=== PATIENT | male | born 1950 | race Caucasian/White ===

== ENCOUNTER 2023-01-04 08:43 | Inpatient (IN) | payer MEDICARE, OTHER ==
[~2023-01-04] VITALS: Ht 180.3 cm; Wt 122.0 kg
[2023-01-04] MEDS ORDERED: ACHD5005 PO (11:39)
[2023-01-04] MEDS ORDERED: CYCL10TA25 PO (11:39)
[2023-01-04] MEDS ORDERED: CARV6.252 PO (11:39)
[2023-01-04] MEDS ORDERED: NALO4SPR3 NS (11:39)
[2023-01-04] MEDS ORDERED: DIAZ2TAB2 PO (11:39)
[2023-01-04] MEDS ORDERED: FLEC50TA PO (11:39)
[2023-01-04] MEDS ORDERED: LISI1TAB48 PO (11:39)
[2023-01-04] MEDS ORDERED: ACET-2267 PO (11:39)
[2023-01-04] MEDS ORDERED: DOCU100C37 PO (11:39)
[2023-01-04] MEDS ORDERED: TMSL.4C PO (11:39)
[2023-01-04] MEDS ORDERED: Sodium Phosphate/Sodium Biphosphate ADULT enema PR PRN (12:45)
[2023-01-04] MEDS ORDERED: ONDANSETRON 4 MG ORAL DISSOLVE TABLET PO PRN (12:45)
[2023-01-04] MEDS ORDERED: diphenhydrAMINE 25 MG TABLET PO PRN (12:45)
[2023-01-04] MEDS ORDERED: DOCUSATE SODIUM 100 MG CAPSULE PO PRN (12:45)
[2023-01-04] MEDS ORDERED: ALPRAZolam 0.25 MG TABLET PO PRN (12:45)
[2023-01-04] MEDS ORDERED: LOPERAMIDE 2 MG CAPSULE PO PRN (12:45)
[2023-01-04] MEDS ORDERED: ACETAMINOPHEN 325 MG TABLET PO PRN (12:45)
[2023-01-04] MEDS ORDERED: guaiFENesin/CODEINE 10ML UDC PO PRN (12:45)
[2023-01-04] MEDS ORDERED: MELATONIN 3 MG TABLET PO PRN (12:45)
[2023-01-04] MEDS ORDERED: BISACODYL 10 MG SUPPOSITORY PR PRN (12:45)
[2023-01-04] MEDS ORDERED: CALCIUM CARBONATE 500 MG CHEW TABLET PO PRN (12:45)
[2023-01-04] MEDS ORDERED: LACTULOSE SYRUP 10GM/15ML 30ML UDC PO PRN (12:45)
--- NOTE | 2023-01-04 12:47 | PM&R Post Admission Assessment ---
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 He had post op urinary retention requiring in-dwelling catheter. He continues to have severe leg weakness from myelopathy. Home meds were restarted along with pain meds and patient will be monitored closely for any post op complications. Bowels have not moved since before surgery so regimen will be started. Past Qthxjrn-Tdlkpr-Mryuzv Hx Past Med/Social Hx: Reviewed Nursing Past Med/Soc Hx, Reviewed and Corrections made Patient Social History Marrital Status: Employed/Student: retired Alcohol Use: Denies Use Smoking Status: Former Smoker Past Medical History Respiratory: Sleep Apnea Currently Using CPAP: No Currently Using BIPAP: No Cardiac: Atrial Fibrillation, High Cholesterol, Hypertension Musculoskeletal: Arthritis, Chronic Back Pain PM&R Allergy/Meds/Data Review Allergies Coded Allergies: No Allergy Information Available (Unverified , 01/04/23) Home Medications Scheduled Carvedilol (Carvedilol), 6.25 MG PO BID WITH MEALS, (Reported) Docusate Sodium (Docusate Sodium), 100 MG PO BID, (Reported) Flecainide Acetate (Flecainide Acetate), 50 MG PO Q12H, (Reported) Lisinopril/Hydrochlorothiazide (Lisinopril-Hctz 20-25 mg Tab), 1 EACH PO HS, (Reported) Tamsulosin HCl (Flomax), 0.4 MG PO 1800 AFTER SUPPER, (Reported) Scheduled PRN Acetaminophen (Tylenol Extra Strength), 500 MG PO Q6H PRN for PAIN-MILD (1-4), (Reported) Cyclobenzaprine HCl (Cyclobenzaprine HCl), 10 MG PO Q8H PRN for MUSCLE SPASMS, (Reported) Diazepam (Diazepam), 2 MG PO Q8H PRN for MUSCLE SPASMS, (Reported) Hydrocodone/Acetaminophen (Hydrocodone-Acetamin 5-325 mg), 1 EA PO Q4H PRN for PAIN-MODERATE (5-7), (Reported) Naloxone HCl (Naloxone HCl), 1 SPRAY NS UD PRN for OPIOID OVERDOSE, (Reported) Current Medications Current Medications Reviewed Review of Systems Constitutional: see HPI, malaise, weakness EENTM: no symptoms reported Respiratory: no symptoms reported Cardiovascular: no symptoms reported Gastrointestinal: constipation Genitourinary: other (retention) Musculoskeletal: back pain, muscle pain, muscle stiffness, muscle cramps, muscle twitching, muscle weakness, neck pain Skin: no symptoms reported Psychiatric/Neurological: Depressed All Other Systems Reviewed Negative Unless Noted: Yes Physical Exam Physical Exam Vital Signs Capillary Refill : Height, Weight, BMI Height: '" Weight: lbs. oz. kg; BMI Method: General Appearance: No Apparent Distress, WD/WN, Chronically ill, Obese Eyes: Bilateral Eye Normal Inspection, Bilateral Eye PERRL HEENT: PERRL/EOMI, Normal ENT Inspection, Pharynx Normal Neck: Full Range of Motion, Normal Inspection, Non Tender, Supple, Carotid Bruit Respiratory: Chest Non Tender, Lungs Clear, Normal Breath Sounds, No Accessory Muscle Use, No Respiratory Distress Cardiovascular: Regular Rate, Rhythm, No Edema, No Gallop, No JVD, No Murmur, Normal Peripheral Pulses Gastrointestinal: Normal Bowel Sounds, No Organomegaly, No Pulsatile Mass, Non Tender, Soft Back: Normal Inspection, No CVA Tenderness, No Vertebral Tenderness Extremity: Normal Capillary Refill, Normal Inspection, Normal Range of Motion (except legs 2/5 strength), Non Tender, No Calf Tenderness, No Pedal Edema Neurologic/Psychiatric: Alert, Oriented x3, No Motor/Sensory Deficits, nurse practitioner physician assistant II- XII Norm as Tested, Abnormal Gait, Depressed Affect, Motor Weakness (legs 2/5) Skin: Normal Color, Warm/Dry Lymphatic: No Adenopathy PM&R Medical Assessment & Plan REHAB/MEDICAL ASSESSMENT AND PLAN: REHAB IMPAIRMENT GROUP: Other non-traumatic spinal cord dysfunction ETIOLOGIC DIAGNOSIS: Other spondylosis with myelopathy, cervical region The comorbidities that impact the patients function and/or functional outcome by: obesity, AF, HTN, urinary retention with la in place REHAB PLAN: The patient is being admitted to our comprehensive inpatient rehabilitation facility and can tolerate the intensity of service consisting of at least: 180 minutes of therapy a day, 5 out of 7 days a week Rehab treatment will consist of: PT OT will focus on regaining function with the use of AD in order to regain function of legs and work on DC la catheter while adding Flomax The patient/family has a good understanding of our discharge process and will benefit from an interdisciplinary inpatient rehabilitation program. The patient has potential to make improvement and is in need of at least two of the following multidisciplinary therapies including but not limited to physical, occupational, speech, and prosthetics and orthotics. Additionally the patient will need services from respiratory, nutritional services, wound care, psychology, etc. (Customize this to each patient). Given the patients complex condition and risk of further medical complications, rehabilitation services cannot be safely or effectively provided at a lower level of care such as a alf facility. BARRIERS TO DISCHARGE: Elevated BMI and loss of strength in legs ESTIMATED LOS: 14 days DISPOSITION: Home RELEVANT CHANGES SINCE PREADMISSION SCREENING: I have compared the patients medical and functional status at the time of the preadmission screening and there are: no changes PROGNOSIS: Good REHABILITATION GOALS: 1. PT OT will focus on regaining function with the use of AD in order to regain function of legs and work on DC la catheter while adding Flomax All the above goals were reviewed with the patient and he/she is in agreement. By signing this document, I acknowledge that I have personally performed a full physical examination on this patient within 24 hours of admission to this inpatient rehabilitation facility and have determined the patient to be able to tolerate the above course of treatment at an intensive level for a reasonable period of time. I will be completing a detailed individualized Plan of Care for this patient by day #4 of the patients stay based upon the Preadmission Screen, the Post-Admission Evaluation, and the therapy evaluations. Admission Dx/Comorbidities: (1) Cervical myelopathy ICD Codes: G95.9 - Disease of spinal cord, unspecified Assessment/Plan Assessment and Plan Assess & Plan/Chief Complaint Assessment: Cervical stenosis with post op myleopathy Urinary retention requiring in-dwelling catheter Post op constipation AF HTN HLP Plan: Pain control Monitor closely PT OT Catheter management Flomax RADHA SEVERINO DO Jan 04, 2023 12:47
[2023-01-04 13:30] VITALS: BP 137/75
--- NOTE | 2023-01-04 13:32 | Occupational Therapy Eval ---
OT Evaluation-General/PLF Medical Diagnosis Admission Date Jan 04, 2023 at 13:15 Medical Diagnosis: spondylosis with myelopathy; cervical region Onset Date: Jan 02, 2023 Therapy Diagnosis Therapy Diagnosis: decreased ADL status, weakness Referral Physician: Casa Referral Reason: Evaluation/Treatment Medical History Additional Medical History afib, L knee, lumbar laminectomy, R ZACHARY, R TKA, arhtritis, guillain barre, HLD, HTN, CINDY Current History 01/02/23 cervical discectomy fusion 1 level anterior, C7-T1 ACDF Social History Home: Single Level Current Living Status: Spouse Entry Into Home: Stairs With Railing (L side) Steps Into Home: 3 ADL-Prior Level of Function SCALE: Activities may be completed with or without assistive devices. 7-Kxhrbxapsk-izausdt completes the activity by him/herself with no assistance from a helper. 5-Set-up or Clean-up Assistance-helper sets up or cleans up; patient completes activity. [place] assists only prior to or following the activity. 4-Supervision or Touching Assistance-helper provides verbal cues and/or touching/steadying and/or contact guard assistance as patient completes activity. Assistance may be provided throughout the activity or intermittently. 3-Partial/Moderate Assistance-helper does LESS THAN HALF the effort. [place] lif ts, holds or supports trunk or limbs, but provides less than half the effort. 2-Substantial/Maximal Assistance-helper does MORE THAN HALF the effort. [place] lifts or holds trunk or limbs and provides more than half the effort. 4-Zzkurcpyr-fnzunw does ALL the effort. Patient does none of the effort to complete the activity. Or, the assistance of 2 or more helpers is required for the patient to complete the activity. If activity was not attempted, code reason: 7-Patient Refused. 9-Not Applicable-not attempted and the patient did not perform the activity before the current illness, exacerbation or injury. 10-Not Attempted due to Environmental Limitations-(lack of equipment, weather restraints, etc.). 88-Not Attempted due to Medical Conditions or Safety Concerns. ADL PLOF Comments Pt reports IND with ADLs and functional mobility at [facility], using cane PRN the last couple weeks due to RLE weakness/low back pain. He has a tub/shower combo, owns a tub transfer bench. Pt has a tall toilet. He has been sleeping in a recliner for the last 2 months due to back pain when flat, prior to that he was sleeping in a regular bed. 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 Mental Status/Objective Patient Orientation: Person, Place, Time, Situation Attachments: Pardo Catheter Current Glasses/Contacts: Yes Hearing Aids: Yes Dentures/Partials: No Hand Dominance: Right Upper Extremity ROM WFL, BUE shoulder flexion to approx 160 degrees Upper Extremity Coordination WFL Upper Extremity Sensation WFL per pt report. Occasional numbness based on position. Upper Extremity Strength grossly 4+/5 ADL-Treatment Eating (QC): 6 (IND per pt report) Oral Hygiene (QC): 4 Shower/Bathe Self (QC): 88 Upper Body Dressing (QC): 88 Lower Body Dressing (QC): 88 On/Off Footwear (QC): 1 Toileting Hygiene (QC): 88 Other Treatments Pt agreeable to OT evaluation. Pt provided information about PLOF and home set up and participated in UE screen. Pt educated on ARU expectations/process. Post tx, pt in bed, call light in reach and all needs met. Education OT Patient Education: Correct positioning, Energy conservation, Modified ADL techniques, Progress toward Goal/Update tx plan, Purpose of tx/functional activities, Rehab process Teaching Recipient: Patient Teaching Methods: Discussion Response to Teaching: Verbalize Understanding BIMS CAM BIMS Expression of Ideas and Wants: Without Difficulty Understanding Verbal Content: Understands Brief Interview/Mental Status: Yes IRF JAVI BIMS: IRF JAVI BIMS Response (Comments) Value Repitition of Three Words Three 3 Recalls Socks Yes, No Cue Required 2 Recalls Blue Yes, No Cue Required 2 Recalls Bed Yes, No Cue Required 2 Year Correct 3 Month Accurate Within 5 Days 2 Day Correct 1 Total 15 Patient Normally Able to Recal: Current Session, Location of own room, Staff Names and faces, That he/she in a steward health care system Should Staff Asses. Mental St.: No Memory/Recall Ability: Current Season, Location of Own Room, Staff Names and Faces, That He/She in [facility] Mental Status Change/Baseline: 0 Inattention: 0 Disorganized thinkin Altered level of consciousness: 0 OT Change Manager Goals Assisted Goals Time Frame: Jan 27, 2023 Eating (QC): 6 Oral Hygiene (QC): 6 Toileting Hygiene (QC): 4 Shower/Bathe Self (QC): 4 Upper Body Dressing (QC): 5 Lower Body Dressing (QC): 4 On/Off Footwear (QC): 5 Additional Goals: 1-Demonstrate ADL Tasks, 2-Verbalize Understanding, 3- ImproveStrength/Rahel 1=Demonstrate adherence to instructed precautions during ADL tasks. 2=Patient will verbalize/demonstrate understanding of assistive devices/modifications for ADL. 3=Patient will improve strength/tolerance for activity to enable patient to perform ADL's. OT Education/Plan Problem List/Assessment Assessment: Decreased Activ Tolerance, Decreased UE Strength, Impaired Funct B alance, Impaired I ADL's, Impaired Self-Care Skills Discharge Recommendations Plan/Recommendations: Continue POC Comment Recommendations to be determined based on pt's progress. Treatment Plan/Plan of Care Patient would benefit from OT for education, treatment and training to promote independence in ADL's, mobility, safety and/or upper extremity function for ADL's. Plan of Care: ADL Retraining, Functional Mobility, Group Exercise/Act as Ind, UE Funct Exercise/Act, UE Neuromus Re-Ed/Coord Treatment Duration: Jan 27, 2023 Frequency: At least 5 of 7 days/Wk (IRF) Estimated Hrs Per Day: 1.5 hours per day Agreement: Yes Rehab Potential: Fair Time Start Time: 13:20 Stop Time: 14:00 DATE: Jan 04, 2023 Total Time Billed (hr/min): 40 Billed Treatment Time 1, ANALIA PASTOR OT Jan 04, 2023 13:32
[2023-01-04] MEDS ORDERED: RX-CYCLOBENZAPRINE 10 MG (FLEXERIL) TAB PPK#3 PO PRN (14:00)
[2023-01-04] MEDS ORDERED: diazePAM 2 MG TABLET PO PRN (14:00)
[2023-01-04] MEDS ORDERED: ACETAMINOPHEN 500 MG TABLET PO PRN (14:00)
[2023-01-04] MEDS ORDERED: HYDROcodone/ACETAMINOPHEN 5 MG/325 MG TABLET PO PRN ×2 (14:00)
[2023-01-04] MEDS ORDERED: NON-FORMULARY MEDICATION 1 EA EA (Flecainide Acetate 50 MG) PO SCH (14:00)
[2023-01-04] MEDS ORDERED: CYCLOBENZAPRINE 10 MG TABLET PO PRN (14:15)
--- NOTE | 2023-01-04 16:26 | Physical Therapy Evaluation ---
PT Evaluation-General Medical Diagnosis Admission Date Jan 04, 2023 at 13:15 Medical Diagnosis: spondylosis with myelopathy; cervical region, s/p ACDF C7-T1 01/02/23 Onset Date: Jan 02, 2023 Therapy Diagnosis Therapy Diagnosis: severe mobility impairment, decreased endurance, poor balance Precautions Precautions/Isolations: Fall Prevention, Standard Precautions Weight Bear Status Right Lower Extremity: Right Full Weight Bearing Left Lower Extremity: Left Full Weight Bearing Referral Physician: Casa Reason for Referral: Evaluation/Treatment Medical History Pertinent Medical History: Atrial Fib, Arthritis Additional Medical History (R) anterior THR, (B) TKR's, lumbar laminectomy, remote hx Guillain [place], HLD, HTN, CINDY Social History Home: Single Level Current Living Status: Spouse Entry Into Home: Stairs With Railing (L side) PT Steps Into Home: 3 Prior Prior Level of Function SCALE: Activities may be completed with or without assistive devices. 4-Qerwymndyg-fxzpoto completes the activity by him/herself with no assistance from a helper. 5-Set-up or Clean-up Assistance-helper sets up or cleans up; patient completes activity. [place] assists only prior to or following the activity. 4-Supervision or Touching Assistance-helper provides verbal cues and/or touching/steadying and/or contact guard assistance as patient completes activity. Assistance may be provided throughout the activity or intermittently. 3-Partial/Moderate Assistance-helper does LESS THAN HALF the effort. [place] lifts, holds or supports trunk or limbs, but provides less than half the effort. 2-Substantial/Maximal Assistance-helper does MORE THAN HALF the effort. [place] lifts or holds trunk or limbs and provides more than half the effort. 6-Znvkmdinu-tvhqkz does ALL the effort. Patient does none of the effort to complete the activity. Or, the assistance of 2 or more helpers is required for the patient to complete the activity. If activity was not attempted, code reason: 7-Patient Refused. 9-Not Applicable-not attempted and the patient did not perform the activity before the current illness, exacerbation or injury. 10-Not Attempted due to Environmental Limitations-(lack of equipment, weather restraints, etc.). 88-Not Attempted due to Medical Conditions or Safety Concerns. Bed Mobility: 6 (Patient states he slept in a recliner) Transfers (B,C,W/C): 6 Gait: 6 (Patient states his max distance was ~ 100' due to back knees and back, then he would have to sit down.) Stairs: 6 (/c rails) Wheelchair Mobility: 9 Indoor Mobility (Ambulation): Independent Stairs: Independent Prior Device Use: None prior to 01/02 surgery. 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 States there is a FWW and wc available for his use. PT Evaluation-Current Subjective Patient states his butt hurts due to laying on it for so long (was transferred here by [facility] this afternoon). Pain Section J - Health Conditions 1. Rarely or not at all 2. Occasionally 3. Frequently 4. Almost constantly 8. Unable to answer Pain Effect on Sleep: 1 Pain Interference with Therapy: 2 Pain Interference w/Day-to-Day: 2 Pt/Family Goals Patient wishes to return to his home. Objective Patient Orientation: Person, Place, Situation Attachments: Pardo Catheter ROM/Strength ROM Upper Extremities deferred to OT ROM Lower Extremities Demonstrates full knee and ankle ROM actively. Demonstrates decreased hip flexion due to weakness, but large abdomen limits lift excursion in sitting. Strength Upper Extremities deferred to OT Strength Lower Extremities Sitting EOB (unsupported), MMT: Knee extension 5/5 (B). Knee flexion 5/5 (B). Ankle DF/PF 5/5 (B). Hip flexion 3-/5 (B), hip abd/add 4/5 (B) with MMT. Patient able to demonstrate normal motor control of LE's for MMT (B) - no involuntary movements noted with good control. Integumentary/Posture Integumentary Back was a deep red color when patient sat up to EOB with therapy staff. Nursing notified. Bladder Incontinence: Pardo Cath Sensory Hearing: Functional Hand Dominance: Right Sensation Lower Extremities Patient states that he had numbness, tingling and pins and needles at all aspects of his LE's and this is new since his 01/02 surgery. Testing for light touch: initially patient stated he could not feel any light touch. Performed Babinksi on (L) foot, and then patient was able to feel light touch at ALL aspects of LE's including re-testing of areas that he previously said were numb and did not have any sensation, 100% accuracy with laterality and location of light touch. Transfers Roll Left & Right (QC): 3 (Min (A) /c cues and bed rail use) Sit to Lying (QC): 1 (hard max (A) of 2 for supine>sit) Lying to Sitting/Side of Bed(Q: 1 (mod (A) of 2) Sit to Stand (QC): 1 (Unable to perform sit>stand with max (A) of 2 to walker, even with bed elevated, but performed 5 jerky partial sit>stands in attempt to stand. Had patient sit and utilized mechanical lift for patient and staff safety. ) Chair/Rjo-zu-Nzerx Xfer(QC): 1 (Attempted sliding board transfer with patient exhibiting jerky movements with feet (states he cannot control them). Transfer was not safe as patient kept scooting forward instead of along board. Transfer halted and had patient scoot back fully to bed. Sit>stand lift utilized - patient stated he could not control his feet when asked to place them on the platform of the stander, then later able to position (I).) Toilet Transfer (QC): 1 Car Transfer (QC): 88 Gait Does the Patient Walk?: Yes Mode of Locomotion: Both Anticipated Mode of Locomotion: Wheelchair Walk 10 feet (QC): 88 Walk 50 ft with 2 Turns(QC): 88 Walk 150 ft (QC): 9 (max distance prior to surgery was 100' due to knee and back pain) Walking 10ft/uneven surface-QC: 88 Wheelchair Training Does the Pt Use a Wheelchair?: Yes Distance: 170' Wheel 50 ft with 2 turns (QC): 4 (cues for UE use for propulsion/180 degree turns) Wheel 150 ft (QC): 4 (cues for UE use for propulsion/180 degree turns) Type of Wheelchair: Manual Stairs 1 Step (curb) (QC): 88 4 Steps (QC): 88 12 Steps (QC): 88 Balance Picking up an Object (QC): 88 Special Test Comments Sitting balance varied greatly from min-mod (A) when he first sat EOB to completely (I) during MMT of LE's and during sliding board transfer attempt. Was also (I) while placing sit>stand sling and after transferred back to bed. Patient unable to stand without mechanical lift. Assessment/Needs 72 year old male who underwent ACDF C7-T1 on 01/02. Has no UE deficits. Had good strength with MMT in (B) LE's. Inconsistent findings with LE sensation and motor coordination. 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 Current mobility limitations do not correlate with his recent medical diagnosis, his LE MMT, nor his PLOF. Rehab Potential: Fair Equipment Needs W/C /c cushion, ramp for home entry, mechanical lift at this time. Equipment needs TBD closer to discharge. PT Fish Cleaner Goals Fish Cleaner Goals PT Fish Cleaner Goals Time Frame: Jan 25, 2023 Roll Left to Right (QC): 6 (/c bed rail) Sit to Lying (QC): 3 (min (A) 1) Lying-Sitting on Side/Bed(QC): 3 (min (A) 1) Sit to Stand (QC): 3 (mod (A) of 1) Chair/Uwt-yh-Qsouj Xfer(QC): 3 (mod (A) of 1 /c sliding board or stand pivot) Toilet/Commode Transfer (QC): 3 (mod (A) of 1) Car Transfer (QC): 3 (Mod (A) ) Does the Patient Walk: No and Walking Goal IS indicated Walk 10 feet (QC): 1 ((A) of 2 /c FWW) Walk 10ft-Uneven Surface(QC): 1 ((A) of 2 /c FWW) Walk 50ft with 2 Turns (QC): 1 ((A) of 2 /c FWW) Walk 150 ft (QC): 9 (max distance prior to surgery was 100' due to (B) knee and back pain) Does the Pt use WC or Scooter?: Yes Wheel 50 feet with 2 turns (QC: 6 Type: Manual Wheel 150 feet: 6 1 Step (curb) (QC): 1 ((A) of 2 with rails or FWW) 4 Steps (QC): 88 12 Steps (QC): 88 Picking up an Object (QC): 3 (mod (A) with walker and billet inspector) Recommend ramp for home entry PT Plan Problem List Problem List: Activity Tolerance, Functional Strength, Safety, Balance, Gait, Transfer, Bed Mobility, Other (w/c propulsion) Treatment/Plan Treatment Plan: Continue Plan of Care Treatment Plan: Bed Mobility, Education, Functional Activity Rahel, Functional Strength, Gait, Safety, Therapeutic Exercise, Transfers Treatment Duration: Jan 25, 2023 Frequency: At least 5 of 7 days/Wk (IRF) Estimated Hrs Per Day: 1.5 hours per day Patient and/or Family Agrees t: Yes Discharge Recommendations Therapy Discharge Recommendati: 24 Hour Supervision (at this time), Bath Aide, Post Acute PT Discharge Status/Home Program TBD Target Placement TBD Time Time In: 1405 Time Out: 1510 DATE: Jan 04, 2023 Total Billed Treatment Time: 65 Total Billed Treatment [facility] 65 Mariella Ruelas PT Jan 04, 2023 16:26
[2023-01-04] MEDS ORDERED: FLECAINIDE 100 MG TABLET PO SCH ×2 (18:00→21:00)
[2023-01-04] MEDS: carvediloL 6.25 MG TABLET PO SCH (18:37)
[2023-01-04 20:12] VITALS: BP 132/61
[2023-01-04] MEDS ORDERED: NON-FORMULARY MEDICATION 1 EA EA (Lisinopril/Hydrochlorothiazide (Lisinopril-Hctz 20-25 mg PO SCH (21:00)
[2023-01-04] MEDS ORDERED: DOCUSATE SODIUM 100 MG CAPSULE PO SCH (21:00)
[2023-01-04] MEDS: SENNA W/DOCUSATE TABLET PO SCH (21:22)
[2023-01-04] MEDS: TAMSULOSIN 0.4 MG (FLOMAX) CAP PO SCH (21:22)
[2023-01-04] MEDS: DOCUSATE SODIUM 100 MG CAPSULE PO SCH (21:22)
[2023-01-05 05:58] LABS: BASOPHILS % (AUTO) 0 % (0-10); EOSINOPHILS # (AUTO) 0.1 10^3/uL (0.0-0.3); EOSINOPHILS % (AUTO) 0 % (0-10); HEMATOCRIT 38 % (40-54); HEMOGLOBIN 12.9 g/dL (13.3-17.7); LYMPHOCYTES % (AUTO) 36 % (12-44); MEAN CORPUSCULAR HEMOGLOBIN 33 pg (25-34); MEAN CORPUSCULAR HGB CONC 34 g/dL (32-36); MEAN CORPUSCULAR VOLUME 95 fL (80-99); MONOCYTES # (AUTO) 0.8 10^3/uL (0.0-1.0); MONOCYTES % (AUTO) 7 % (0-12); NEUTROPHILS # (AUTO) 6.2 10^3/uL (1.8-7.8); NEUTROPHILS % (AUTO) 56 % (42-75); PLATELET COUNT 283 10^3/uL (130-400); WHITE BLOOD COUNT 11.3 10^3/uL (4.3-11.0)
[2023-01-05 06:12] LABS: ALBUMIN 3.6 GM/DL (3.2-4.5); POTASSIUM 3.8 MMOL/L (3.6-5.0)
[2023-01-05 06:13] LABS: CALCIUM 8.7 MG/DL (8.5-10.1)
[2023-01-05 06:14] LABS: TOTAL PROTEIN 6.6 GM/DL (6.4-8.2)
[2023-01-05 06:16] LABS: BILIRUBIN,TOTAL 0.4 MG/DL (0.1-1.0)
[2023-01-05 06:18] LABS: CREATININE SERUM 0.84 MG/DL (0.60-1.30)
[2023-01-05 08:00] VITALS: BP 122/66
[2023-01-05] MEDS: TAMSULOSIN 0.4 MG (FLOMAX) CAP PO SCH ×2 (08:07→20:57)
[2023-01-05] MEDS: carvediloL 6.25 MG TABLET PO SCH ×2 (08:08→17:47)
[2023-01-05] MEDS: FLECAINIDE 100 MG TABLET PO SCH ×2 (08:08→17:51)
[2023-01-05] MEDS: DOCUSATE SODIUM 100 MG CAPSULE PO SCH ×2 (08:08→20:57)
[2023-01-05] MEDS: SENNA W/DOCUSATE TABLET PO SCH ×2 (08:08→20:57)
--- NOTE | 2023-01-05 08:45 | PM&R Progress Note ---
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 Labs reviewed Review of Systems General: Fatigue, Malaise Genitourinary: Retention Musculoskeletal: neck pain Objective Exam Vital Signs Vital Signs Date Time Temp Pulse Resp B/P (MAP) Pulse Ox O2 Delivery O2 Flow Rate FiO2 01/05/23 20:30 Room Air 01/05/23 20:19 36.4 68 18 115/57 (76) 94 Capillary Refill : General Appearance: No Apparent Distress, WD/WN, Chronically ill, Obese HEENT: PERRL/EOMI, Normal ENT Inspection, Pharynx Normal Neck: Full Range of Motion, Normal Inspection, Non Tender, Supple, Carotid Bruit Respiratory: Chest Non Tender, Lungs Clear, Normal Breath Sounds, No Accessory Muscle Use, No Respiratory Distress Cardiovascular: Regular Rate, Rhythm, No Edema, No Gallop, No JVD, No Murmur, Normal Peripheral Pulses Gastrointestinal: Normal Bowel Sounds, No Organomegaly, No Pulsatile Mass, Non Tender, Soft Back: Normal Inspection, No CVA Tenderness, No Vertebral Tenderness Extremity: Normal Capillary Refill, Normal Inspection, Normal Range of Motion, Non Tender, No Calf Tenderness, No Pedal Edema Neurologic/Psychiatric: Alert, Oriented x3, No Motor/Sensory Deficits, door 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 FIM Transfers Therapy Code Descriptions/Definitions Functional [place] Measure: 0=Not Assessed/NA 4=Minimal Assistance 1=Total Assistance 5=Supervision or Setup 2=Maximal Assistance 6=Modified [place] 3=Moderate Assistance 7=Complete IndependenceSCALE: Activities may be completed with or without assistive devices. 0-Lxiwmzgysq-mnzrsds completes the activity by him/herself with no assistance from a helper. 5-Set-up or Clean-up Assistance-helper sets up or cleans up; patient completes activity. [place] assists only prior to or following the activity. 4-Supervision or Touching Assistance-helper provides verbal cues and/or touching/steadying and/or contact guard assistance as patient completes activity. Assistance may be provided throughout the activity or intermittently. 3-Partial/Moderate Assistance-helper does LESS THAN HALF the effort. [place] lifts, holds or supports trunk or limbs, but provides less than half the effort. 2-Substantial/Maximal Assistance-helper does MORE THAN HALF the effort. [place] lifts or holds trunk or limbs and provides more than half the effort. 9-Rdztyrgwv-cnlddn does ALL the effort. Patient does none of the effort to complete the activity. Or, the assistance of 2 or more helpers is required for the patient to complete the activity. If activity was not attempted, code reason: 7-Patient Refused. 9-Not Applicable-not attempted and the patient did not perform the activity before the current illness, exacerbation or injury. 10-Not Attempted due to Environmental Limitations-(lack of equipment, weather restraints, etc.). 88-Not Attempted due to Medical Conditions or Safety Concerns. Roll Left to Right (QC): 3 (Min (A) /c cues and bed rail use) Sit to Lying (QC): 1 (hard max (A) of 2 for supine>sit) Sit to Stand (QC): 1 (Unable to perform sit>stand with max (A) of 2 to walker, even with bed elevated, but performed 5 jerky partial sit>stands in attempt to stand. Had patient sit and utilized mechanical lift for patient and staff safety. ) Chair/Kxk-ex-Ojwvq Xfer(QC): 1 (Attempted sliding board transfer with patient exhibiting jerky movements with feet (states he cannot control them). Transfer was not safe as patient kept scooting forward instead of along board. Transfer halted and had patient scoot back fully to bed. Sit>stand lift utilized - patient stated he could not control his feet when asked to place them on the platform of the stander, then later able to position (I).) Car Transfer (QC): 88 Gait Training Does the Patient Walk?: Yes Walk 10 feet (QC): 88 Walk 50 ft with 2 Turns(QC): 88 Walk 150 ft (QC): 9 (max distance prior to surgery was 100' due to knee and back pain) Walking 10ft/uneven surface-QC: 88 Wheelchair Training Does the Pt Use a Wheelchair?: Yes Distance: 170' Wheel 50 ft with 2 turns (QC): 4 (cues for UE use for propulsion/180 degree turns) Wheel 150 ft (QC): 4 (cues for UE use for propulsion/180 degree turns) Type of Wheelchair: Manual Stair Training 1 Step (curb) (QC): 88 4 Steps (QC): 88 12 Steps (QC): 88 Balance Picking up an Object (QC): 88 ADL-Treatment Eating (QC): 6 (IND per pt report) Oral Hygiene (QC): 4 Shower/Bathe Self (QC): 88 Upper Body Dressing (QC): 88 Lower Body Dressing (QC): 88 On/Off Footwear (QC): 1 Toileting Hygiene (QC): 88 Assessment/Plan Assessment and Plan Assess & Plan/Chief Complaint Assessment: Cervical stenosis with post op myleopathy Urinary retention requiring in-dwelling catheter Post op constipation AF HTN HLP Plan: Pain control Monitor closely PT OT Catheter management Flomax 01/05/2023: Continue Pardo catheter Supportive care (1) Cervical myelopathy RADHA SEVERINO DO Jan 05, 2023 08:45
--- NOTE | 2023-01-05 10:56 | Occupational Ther Daily Note ---
OT Current Status-Daily Note Subjective Pt. alert sitting in w/c with and daughter present in room. No c/o pain. Pt. agreed to therapy. Mental Status/Objective Patient Orientation: Person, Place, Time, Situation Attachments: Pardo Catheter ADL-Treatment Therapy Code Descriptions/Definitions Functional Telephone Measure: 0=Not Assessed/NA 4=Minimal Assistance 1=Total Assistance 5=Supervision or Setup 2=Maximal Assistance 6=Modified Telephone 3=Moderate Assistance 7=Complete IndependenceSCALE: Activities may be completed with or without assistive devices. 1-Ojeglwtkex-fypyjpq completes the activity by him/herself with no assistance from a helper. 5-Set-up or Clean-up Assistance-helper sets up or cleans up; patient completes activity. [place] assists only prior to or following the activity. 4-Supervision or Touching Assistance-helper provides verbal cues and/or touching/steadying and/or contact guard assistance as patient completes activity. Assistance may be provided throughout the activity or intermittently. 3-Partial/Moderate Assistance-helper does LESS THAN HALF the effort. [place] lifts, holds or supports trunk or limbs, but provides less than half the effort. 2-Substantial/Maximal Assistance-helper does MORE THAN HALF the effort. [place] lifts or holds trunk or limbs and provides more than half the effort. 0-Gfkvmrvhe-mvwrwc does ALL the effort. Patient does none of the effort to complete the activity. Or, the assistance of 2 or more helpers is required for the patient to complete the activity. If activity was not attempted, code reason: 7-Patient Refused. 9-Not Applicable-not attempted and the patient did not perform the activity before the current illness, exacerbation or injury. 10-Not Attempted due to Environmental Limitations-(lack of equipment, weather restraints, etc.). 88-Not Attempted due to Medical Conditions or Safety Concerns. Oral Hygiene (QC): 6 (Pt. completes grooming/oral hygiene while sitting at sink. ) Shower/Bathe Self (QC): 1 (2 person assistance would be required) Lower Body Dressing (QC): 1 (2 person assistance would be required) On/Off Footwear: 2 Toileting Hygiene (QC): 1 (Per RN, 2 person required) Toilet Transfer (QC): 1 (Per RN, 2 person required) Other Treatment Pt seated in w/c upon OT arrival. Pt propelled w/c into bathroom, completed grooming tasks at sink independently. OT/PT cotreat due to skill of 2 clinicians required which a cardiovascular technician could not perform in order to coordinate UE/LEs, decrease fall risk, and due to pt's limitations in mobility/transfers and safety. OT focused on UE placement, cues for sequencing and safety, PT focused on LE placement, gross overall movement, transfers/mobility. Pt propelled w/c to therapy gym, SBA with BUEs only. Sit to fashion styling intern // bars, mod A x2, VCS for UE placement. Pt able to fashion styling intern // bars x2, 4.5 mins & 4 mins, min A standing balance. During stands, pt had spontaneous knee buckling but able to self correct each time. Pt performed weight shifting L/R, and performed cervical ROM, looking L/R, and up/down. Pt performed SB transfer from w/c to edge of mat, mod A x2 with SB transfer and max VCS. Pt completed dynamic sitting tasks, reaching for cones crossing midline, and resistive core exercises with heavy resistance band (chest press, rows, crunches, and leaning back), no LOB noted with exercises. Pt performed SB transfer back to w/c, propelled w/c back to his room,SBA using BUE/LEs. Pt completed w/c push ups. Sit to stand lift utilized to transfer from w/c to recliner. Post tx, pt in recliner, call light in reach and all needs met. Education OT Patient Education: Correct positioning, Energy conservation, Exercise program, Modified ADL techniques, Progress toward Goal/Update tx plan, Purpose of tx/functional activities, Rehab process, Safety issues, Transfer techniques, W/C management Teaching Recipient: Patient Teaching Methods: Discussion Response to Teaching: Verbalize Understanding, Reinforcement Needed OT Hospice Care Consultant Goals [facility] Goals Time Frame: Jan 27, 2023 Acute change in mental status: 0 Inattention: 0 Disorganized thinkin Altered level of consciousness: 0 Eating (QC): 6 Oral Hygiene (QC): 6 Toileting Hygiene (QC): 4 Shower/Bathe Self (QC): 4 Upper Body Dressing (QC): 5 Lower Body Dressing (QC): 4 On/Off Footwear (QC): 5 Additional Goals: 1-Demonstrate ADL Tasks, 2-Verbalize Understanding, 3- ImproveStrength/Rahel 1=Demonstrate adherence to instructed precautions during ADL tasks. 2=Patient will verbalize/demonstrate understanding of assistive devices/modifications for ADL. 3=Patient will improve strength/tolerance for activity to enable patient to perform ADL's. OT Education/Plan Problem List/Assessment Assessment: Decreased Activ Tolerance, Decreased Safety Aware, Decreased UE Strength, Dependent Transfers, Impaired Funct Balance, Impaired I ADL's, Impaired Self-Care Skills Discharge Recommendations Plan/Recommendations: Continue POC Treatment Plan/Plan of Care Patient would benefit from OT for education, treatment and training to promote independence in ADL's, mobility, safety and/or upper extremity function for ADL's. Plan of Care: ADL Retraining, Functional Mobility, Group Exercise/Act as Ind, UE Funct Exercise/Act, UE Neuromus Re-Ed/Coord Treatment Duration: Jan 27, 2023 Frequency: At least 5 of 7 days/Wk (IRF) Estimated Hrs Per Day: 1.5 hours per day Agreement: Yes Rehab Potential: Fair Time Start Time: 09:30 Stop Time: 10:45 DATE: Jan 05, 2023 Total Time Billed (hr/min): 75 Billed Treatment Time 5524-5788 OT tx, 1112-3681 cotreat 1, ADL (15'), FA 2 (30'), EX 2 (30') ANALIA SOSA OT Jan 05, 2023 10:55
--- NOTE | 2023-01-05 13:01 | Physical Therapy Daily Note ---
PT Daily Note-Current Subjective No new c/o Pain Section J - Health Conditions 1. Rarely or not at all 2. Occasionally 3. Frequently 4. Almost constantly 8. Unable to answer Pain Effect on Sleep: 1 Pain Interference with Therapy: 1 Pain Interference w/Day-to-Day: 1 Appearance Sitting up in w/c this a.m. Transfers SCALE: Activities may be completed with or without assistive devices. 4-Temtnvxfzz-ubcwcqw completes the activity by him/herself with no assistance from a helper. 5-Set-up or Clean-up Assistance-helper sets up or cleans up; patient completes activity. [place] assists only prior to or following the activity. 4-Supervision or Touching Assistance-helper provides verbal cues and/or touching/steadying and/or contact guard assistance as patient completes activity. Assistance may be provided throughout the activity or intermittently. 3-Partial/Moderate Assistance-helper does LESS THAN HALF the effort. [place] lifts, holds or supports trunk or limbs, but provides less than half the effort. 2-Substantial/Maximal Assistance-helper does MORE THAN HALF the effort. [place] lifts or holds trunk or limbs and provides more than half the effort. 1-Njixauoia-tntvah does ALL the effort. Patient does none of the effort to complete the activity. Or, the assistance of 2 or more helpers is required for the patient to complete the activity. If activity was not attempted, code reason: 7-Patient Refused. 9-Not Applicable-not attempted and the patient did not perform the activity before the current illness, exacerbation or injury. 10-Not Attempted due to Environmental Limitations-(lack of equipment, weather restraints, etc.). 88-Not Attempted due to Medical Conditions or Safety Concerns. Sit to Stand (QC): 1 (mod (A) of 2 to hardboard coating machine operator // bars, but able to maintain standing min (A) of 1 x 4.5 minutes, seated rest break, and another 4 minutes. (R)/(L) weight shifting activity and gaze (L)/(R) and up/down while standing. Some self-corrected spontaneous knee-buckling episodes. ) Chair/Mse-ou-Jnngg Xfer(QC): 1 (sliding board transfer w/c >mat mod (A) of 2 /c max cues for w/c setup and board placement. Required that feet be blocked during transfer to prevent slippage.) Weight Bearing Right Lower Extremity: Right Full Weight Bearing Left Lower Extremity: Left Full Weight Bearing Wheelchair Training Wheel 50 ft with 2 turns (QC): 4 (propelled own w/c room to gym SBA /c (B) UE's only (held legs up from entire trip). On return trip had patient plant heels on the floor and bend knees to assist with UE's propulsion and exercise hamstrings - SBA gym>room.) Neuromuscular Seated balance reach and place cones at various heights in sitting without need of external support x 10 x 2. Blue t-band chest press x 10 without balance issue in sitting. Blue t-band lumbar extension x 10 and able to recover to upright sitting without supp ort/(A). Blue t-band crunches (elbows to knees) x 10 /s (A). PT Medical Sales Goals Medical Sales Goals PT [facility] Goals Time Frame: Jan 25, 2023 Roll Left & Right (QC): 6 (/c bed rail) Sit to Lying (QC): 3 (min (A) 1) Lying-Sitting on Side/Bed(QC): 3 (min (A) 1) Sit to Stand (QC): 3 (mod (A) of 1) Chair/Nrr-dn-Qqsuv Xfer(QC): 3 (mod (A) of 1 /c sliding board or stand pivot) Toilet Transfer (QC): 3 (mod (A) of 1) Car Transfer (QC): 3 (Mod (A) ) Does the Patient Walk: No and Walking Goal IS indicated Walk 10 feet (QC): 1 ((A) of 2 /c FWW) Walk 50ft with 2 Turns (QC): 1 ((A) of 2 /c FWW) Walk 150 ft (QC): 9 (max distance prior to surgery was 100' due to (B) knee and back pain) Walking 10ft on Uneven Surface: 1 ((A) of 2 /c FWW) 1 Step (curb) (QC): 1 ((A) of 2 with rails or FWW) 4 Steps (QC): 88 12 Steps (QC): 88 Picking up an Object (QC): 3 (mod (A) with walker and silver plater) Does the Pt use WC or Scooter?: Yes Wheel 50 feet with 2 turns (QC: 6 Type: Manual Wheel 150 feet: 6 PT Plan Treatment/Plan Treatment Plan: Continue Plan of Care Treatment Plan: Bed Mobility, Education, Functional Activity Rahel, Functional Strength, Gait, Safety, Therapeutic Exercise, Transfers Treatment Duration: Jan 25, 2023 Frequency: At least 5 of 7 days/Wk (IRF) Estimated Hrs Per Day: 1.5 hours per day Patient and/or Family Agrees t: Yes Time Time In: 945 Time Out: 1045 DATE: Jan 05, 2023 Total Billed Treatment Time: 60 Total Billed Treatment 1, 2EX, WC, FA Mariella Ruelas PT Jan 05, 2023 13:01
--- NOTE | 2023-01-05 14:42 | Physical Therapy Daily Note ---
PT Daily Note-Current Subjective Patient has no new complaints. States he doesn't understand why he doesn't have any feeling in his legs or feet. Pain Section J - Health Conditions 1. Rarely or not at all 2. Occasionally 3. Frequently 4. Almost constantly 8. Unable to answer Pain Effect on Sleep: 1 Pain Interference with Therapy: 1 Pain Interference w/Day-to-Day: 1 Transfers SCALE: Activities may be completed with or without assistive devices. 7-Mewkuussqf-nvysdmp completes the activity by him/herself with no assistance from a helper. 5-Set-up or Clean-up Assistance-helper sets up or cleans up; patient completes activity. [place] assists only prior to or following the activity. 4-Supervision or Touching Assistance-helper provides verbal cues and/or touching/steadying and/or contact guard assistance as patient completes activity. Assistance may be provided throughout the activity or intermittently. 3-Partial/Moderate Assistance-helper does LESS THAN HALF the effort. [place] lifts, holds or supports trunk or limbs, but provides less than half the effort. 2-Substantial/Maximal Assistance-helper does MORE THAN HALF the effort. [place] lifts or holds trunk or limbs and provides more than half the effort. 4-Izjdwnnxo-qnryyq does ALL the effort. Patient does none of the effort to complete the activity. Or, the assistance of 2 or more helpers is required for the patient to complete the activity. If activity was not attempted, code reason: 7-Patient Refused. 9-Not Applicable-not attempted and the patient did not perform the activity before the current illness, exacerbation or injury. 10-Not Attempted due to Environmental Limitations-(lack of equipment, weather restraints, etc.). 88-Not Attempted due to Medical Conditions or Safety Concerns. Weight Bearing Right Lower Extremity: Right Full Weight Bearing Left Lower Extremity: Left Full Weight Bearing Treatments (B) LE exercise with theraband sitting in recliner, all with full ROM, good strength, and normal motor control with each rep: Blue theraband ham curls x 15(B), LAQ RTB x 15 (B), DF x 15 RTB (B), PF x 15 RTB (B), Hip abd RTB with legs extended on recliner x 10 (B), hip adduction RTB with legs extended on recliner x 10 (B), hip flexion RTB x 10 (B), hip extension RTB x 10 (B). PT Internal Sales Goals Internal Sales Goals PT [facility] Goals Time Frame: Jan 25, 2023 Roll Left & Right (QC): 6 (/c bed rail) Sit to Lying (QC): 3 (min (A) 1) Lying-Sitting on Side/Bed(QC): 3 (min (A) 1) Sit to Stand (QC): 3 (mod (A) of 1) Chair/Esv-fb-Rnnjm Xfer(QC): 3 (mod (A) of 1 /c sliding board or stand pivot) Toilet Transfer (QC): 3 (mod (A) of 1) Car Transfer (QC): 3 (Mod (A) ) Does the Patient Walk: No and Walking Goal IS indicated Walk 10 feet (QC): 1 ((A) of 2 /c FWW) Walk 50ft with 2 Turns (QC): 1 ((A) of 2 /c FWW) Walk 150 ft (QC): 9 (max distance prior to surgery was 100' due to (B) knee and back pain) Walking 10ft on Uneven Surface: 1 ((A) of 2 /c FWW) 1 Step (curb) (QC): 1 ((A) of 2 with rails or FWW) 4 Steps (QC): 88 12 Steps (QC): 88 Picking up an Object (QC): 3 (mod (A) with walker and certified genetic counselor) Does the Pt use WC or Scooter?: Yes Wheel 50 feet with 2 turns (QC: 6 Type: Manual Wheel 150 feet: 6 PT Plan Treatment/Plan Treatment Plan: Continue Plan of Care Treatment Plan: Bed Mobility, Education, Functional Activity Rahel, Functional Strength, Gait, Safety, Therapeutic Exercise, Transfers Treatment Duration: Jan 25, 2023 Frequency: At least 5 of 7 days/Wk (IRF) Estimated Hrs Per Day: 1.5 hours per day Patient and/or Family Agrees t: Yes Time Time In: 1300 Time Out: 1315 DATE: Jan 05, 2023 Total Billed Treatment Time: 15 Total Billed Treatment 1, EX Ruelas,Mariella PT Jan 05, 2023 14:41
--- NOTE | 2023-01-05 14:47 | ST Cognitive Linguistic Eval ---
Speech Evaluation-General Medical Diagnosis spondylosis with myelopathy; cervical region, s/p ACDF C7-T1 01/02/23 Onset Date: Jan 02, 2023 Therapy Diagnosis Therapy Diagnosis: NA-Eval Only Precautions Precautions: Fall Precautions/Isolations: Standard Precautions Referral Reason for Referral: Evaluation/Treatment Medical History Pertinent Medical History: Atrial Fib, Arthritis afib, L knee, lumbar laminectomy, R ZACHARY, R TKA, arhtritis, guillain barre, HLD, HTN, CINDY Current History 01/02/23 cervical discectomy fusion 1 level anterior, C7-T1 ACDF Social History Current Living Status: Spouse Speech PLF-Current Status Prior Level of Function Per pt report, he was independent with all ADLs. Subjective Pt was sitting in bedside chair upon CAUSTIC PREPARER arrival, and another person were present. Pt agreeable to evaluation. Language Eval: Auditory Comprehends Simple Yes/No Ques: Functional Follows 1-Step Commands: Functional Follows Complex Directions: Functional Follows General Conversations: Functional Language Eval: Verbal Language Completes Spontaneous Greeting: Functional Imitates Simple Words/Phrases: Functional Word Finding: Functional Requests Basic Needs: Functional States Basic Personal Info: Functional Expresses Complex Ideas: Functional Language Evaluation: Writing Copies/Traces: Functional Objective Cognitive Domain Attention: WNL Memory: WNL Executive Functions: WNL Visuospatial Skills: WNL Clock Drawing Severity Rating: WNL Objective Formal/Standardized Tests MOCA Bedside swallow screen Results Pt was given the MOCA and scores WFL on assessment (). Pt recalled 2/5 on delayed recall task, with category cue pt was able to recall. Bedside swallow screen was given, swallow is WFL. Impression Pt's cognitive linguistic abilities are WFL. Pt's does not report s/s of dysphagia. Speech-Plan Patient/Family Goals Patient/Family Goals: Pt wants to return home Treatment Plan Speech Therapy Treatment Plan: Discontinue ST Pt's cognitive linguistic skills are WFL. ST is not required at this time. Treatment Duration: Jan 05, 2023 Frequency: 1 time per week Estimated Hrs Per Day: Other (Pt is WFL, ST is not necessary at this time. ) Rehab Potential: Fair Pt/Family Agrees to Plan: Yes Time Speech Therapy Time In: 14:00 Speech Therapy Time Out: 14:30 DATE: Jan 05, 2023 Total Billed Time: 30 Billed Treatment Time 1 SPSNDCOMP Pt demonstrates WFL cognitive linguistic skills, ST is not required at this time. Rosa Stoner Jan 05, 2023 14:46
[2023-01-05 20:19] VITALS: BP 115/57
--- NOTE | 2023-01-06 05:29 | PM&R Progress Note ---
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 Labs reviewed Review of Systems General: Fatigue, Malaise Objective Exam Vital Signs Vital Signs Date Time Temp Pulse Resp B/P (MAP) Pulse Ox O2 Delivery O2 Flow Rate FiO2 01/06/23 21:10 95 Room Air 01/06/23 21:07 36.4 85 20 121/55 (77) Capillary Refill : General Appearance: No Apparent Distress, WD/WN, Chronically ill, Obese HEENT: PERRL/EOMI, Normal ENT Inspection, Pharynx Normal Neck: Full Range of Motion, Normal Inspection, Non Tender, Supple, Carotid Bruit Respiratory: Chest Non Tender, Lungs Clear, Normal Breath Sounds, No Accessory Muscle Use, No Respiratory Distress Cardiovascular: Regular Rate, Rhythm, No Edema, No Gallop, No JVD, No Murmur, Normal Peripheral Pulses Gastrointestinal: Normal Bowel Sounds, No Organomegaly, No Pulsatile Mass, Non Tender, Soft Back: Normal Inspection, No CVA Tenderness, No Vertebral Tenderness Extremity: Normal Capillary Refill, Normal Inspection, Normal Range of Motion, Non Tender, No Calf Tenderness, No Pedal Edema Neurologic/Psychiatric: Alert, Oriented x3, No Motor/Sensory Deficits, payroll manager II- XII Norm as Tested, Abnormal Gait, Depressed Affect, Motor Weakness Skin: Normal Color, Warm/Dry Lymphatic: No Adenopathy Results/Procedures Lab Patient resulted labs reviewed. FIM Transfers Therapy Code Descriptions/Definitions Functional [place] Measure: 0=Not Assessed/NA 4=Minimal Assistance 1=Total Assistance 5=Supervision or Setup 2=Maximal Assistance 6=Modified [place] 3=Moderate Assistance 7=Complete IndependenceSCALE: Activities may be completed with or without assistive devices. 4-Zwnnpxzjmw-nuyvnth completes the activity by him/herself with no assistance from a helper. 5-Set-up or Clean-up Assistance-helper sets up or cleans up; patient completes activity. [place] assists only prior to or following the activity. 4-Supervision or Touching Assistance-helper provides verbal cues and/or touching/steadying and/or contact guard assistance as patient completes activity. Assistance may be provided throughout the activity or intermittently. 3-Partial/Moderate Assistance-helper does LESS THAN HALF the effort. [place] lifts, holds or supports trunk or limbs, but provides less than half the effort. 2-Substantial/Maximal Assistance-helper does MORE THAN HALF the effort. [place] lifts or holds trunk or limbs and provides more than half the effort. 2-Yuwonqftu-totvpd does ALL the effort. Patient does none of the effort to complete the activity. Or, the assistance of 2 or more helpers is required for the patient to complete the activity. If activity was not attempted, code reason: 7-Patient Refused. 9-Not Applicable-not attempted and the patient did not perform the activity before the current illness, exacerbation or injury. 10-Not Attempted due to Environmental Limitations-(lack of equipment, weather restraints, etc.). 88-Not Attempted due to Medical Conditions or Safety Concerns. Roll Left to Right (QC): 3 (Min (A) /c cues and bed rail use) Sit to Lying (QC): 1 (hard max (A) of 2 for supine>sit) Sit to Stand (QC): 1 (mod (A) of 2 to rigging foreman // bars, but able to maintain standing min (A) of 1 x 4.5 minutes, seated rest break, and another 4 minutes. (R)/(L) weight shifting activity and gaze (L)/(R) and up/down while standing. Some self-corrected spontaneous knee-buckling episodes. ) Chair/New-ve-Qxipn Xfer(QC): 1 (sliding board transfer w/c >mat mod (A) of 2 /c max cues for w/c setup and board placement. Required that feet be blocked during transfer to prevent slippage.) Car Transfer (QC): 88 Gait Training Does the Patient Walk?: Yes Walk 10 feet (QC): 88 Walk 50 ft with 2 Turns(QC): 88 Walk 150 ft (QC): 9 (max distance prior to surgery was 100' due to knee and back pain) Walking 10ft/uneven surface-QC: 88 Wheelchair Training Does the Pt Use a Wheelchair?: Yes Distance: 170' Wheel 50 ft with 2 turns (QC): 4 (propelled own w/c room to gym SBA /c (B) UE's only (held legs up from entire trip). On return trip had patient plant heels on the floor and bend knees to assist with UE's propulsion and exercise hamstrings - SBA gym>room.) Wheel 150 ft (QC): 4 (cues for UE use for propulsion/180 degree turns) Type of Wheelchair: Manual Stair Training 1 Step (curb) (QC): 88 4 Steps (QC): 88 12 Steps (QC): 88 Balance Picking up an Object (QC): 88 ADL-Treatment Eating (QC): 6 (IND per pt report) Oral Hygiene (QC): 6 (Pt. completes grooming/oral hygiene while sitting at sink. ) Shower/Bathe Self (QC): 1 (2 person assistance would be required) Upper Body Dressing (QC): 88 Lower Body Dressing (QC): 1 (2 person assistance would be required) On/Off Footwear (QC): 2 Toileting Hygiene (QC): 1 (Per RN, 2 person required) Toilet Transfer (QC): 1 (Per RN, 2 person required) Assessment/Plan Assessment and Plan Assess & Plan/Chief Complaint Assessment: Cervical stenosis with post op myleopathy Urinary retention requiring in-dwelling catheter Post op constipation AF HTN HLP Plan: Pain control Monitor closely PT OT Catheter management Flomax 01/05/2023: Continue Pardo catheter Supportive care 01/06/2023: Supportive care Pardo cath DC on Monday Continue Flomax twice daily (1) Cervical myelopathy RADHA SEVERINO DO Jan 06, 2023 05:29
--- NOTE | 2023-01-06 05:30 | Individualized Plan of Care ---
Individualized Plan of Care Rehab Nursing IPOC Order Admission Date Jan 04, 2023 at 13:15 Current Orders Orders Admission Order(Inpt,Obs,Sdc) (01/04/23 12:41) Vital Signs: Per Unit Policy ( 08,16,00 (01/04/23 12:41) Wilner Brand , (01/04/23 12:41) Sequential Compression Device [id number] (01/04/23 12:41) Cooking Teacher-Inpt Rehab Con (01/04/23 12:41) Rehab Nursing Orders-Ipoc (01/04/23 12:41) Physical Therapy Rehab Orders (01/04/23 12:41) Occupational Therapy Rehab Ord (01/04/23 12:41) Speech Therapy Rehab Orders (01/04/23 12:41) Cbc And Automated Diff (01/05/23 06:00) Comprehensive Metabolic Panel (01/05/23 06:00) Precautions (Aru) (01/04/23 12:41) Weekly Weight WEEK (01/04/23 12:41) Rehab-Intensity Of Therapy (01/04/23 12:41) Initiate Admission Nursing Pro .admission (01/04/23 12:41) Alprazolam Tablet (Alprazolam Tablet) (01/04/23 12:45) Calcium Carbonate Chew Tablet (Calcium C (01/04/23 12:45) Diphenhydramine Tablet (Diphenhydramine (01/04/23 12:45) Docusate Sodium Capsule (Docusate Sodium (01/04/23 21:00) Docusate Sodium Capsule (Docusate Sodium (01/04/23 12:45) Bisacodyl Suppository (Bisacodyl Supposi (01/04/23 12:45) Lactulose Oral Solution (Enulose Oral So (01/04/23 12:45) Na Phos/Na Biphos Adult Enema (Na Phos/N (01/04/23 12:45) Guaifenesin/Codeine Syrup (Guaifenesin/C (01/04/23 12:45) Loperamide Capsule (Loperamide Capsule) (01/04/23 12:45) Melatonin Tablet (Melatonin Tablet) (01/04/23 12:45) Polyethylene Glycol Powder (Polyethylen (01/04/23 21:00) Ondansetron Oral Dissolve Tab (Ondanset (01/04/23 12:45) Senna W/Docusate Tablet (Senna W/Docusat (01/04/23 21:00) Acetaminophen Tablet (Acetaminophen Ta (01/04/23 12:45) Vte Contraindication (01/04/23 12:41) Initiate Admission Nursing Pro .admission (01/04/23 12:41) Admission Arrival Bed Request (01/04/23 13:15) Tamsulosin Capsule (Flomax Capsule) (01/04/23 21:00) Acetaminophen Tablet (Acetaminophen Ta (01/04/23 14:00) Carvedilol Tablet (Carvedilol Tablet) (01/04/23 18:00) Rx-Cyclobenzaprine Tablet (Rx-Flexeril T (01/04/23 14:00) Diazepam Tablet (Diazepam Tablet) (01/04/23 14:00) Docusate Sodium Capsule (Docusate Sodium (01/04/23 21:00) Hydrocodone/Apap 5/325 Tablet (Hydrocod (01/04/23 14:00) (Nf) Flecainide Acetate (01/04/23 14:00) (Nf) Lisinopril/Hydrochlorothiazide (Lis (01/04/23 21:00) Hydrocodone/Apap 5/325 Tablet (Hydrocod (01/04/23 14:00) Lisinopril Tablet (Lisinopril Tablet) (01/04/23 21:00) Hydrochlorothiazide Tablet (Hydrochlorot (01/04/23 21:00) Flecainide Tablet (Flecainide Tablet) (01/04/23 21:00) Cyclobenzaprine Tablet (Cyclobenzaprine (01/04/23 14:15) General/Regular (01/04/23 Dinner) Lisinopril Tablet (Lisinopril Tablet) (01/04/23 18:00) Hydrochlorothiazide Tablet (Hydrochlorot (01/04/23 18:00) Flecainide Tablet (Flecainide Tablet) (01/04/23 18:00) Flecainide Tablet (Flecainide Tablet) (01/05/23 07:00) Patient Visit (01/04/23 ) Pt Eval High Complexity (01/04/23 ) Patient Visit (01/05/23 ) Wheelchair Mgmt/Propulsn 15min (01/05/23 ) Exercise Therap, Ea 15 Min (01/05/23 ) Functional Activities, Ea 15 (01/05/23 ) Patient May Use Own Med,Single (Patient (01/06/23 10:30) Patient Visit (01/05/23 ) Exercise Therap, Ea 15 Min (01/05/23 ) Patient Visit (01/05/23 ) Speech Sound Lang Comp (01/05/23 ) Non-Formulary Medication (Non-Formulary (01/06/23 11:30) Code/Resuscitation (01/06/23 16:33) Rehab Nursing Orders: Ongoing Assess. of Function Status, Bladder Management, Bladder Scan, Bladder Training, Bowel Management, Bowel Training, Disease Management & Educaiton, DVT Prophylaxis, Fall Prevention, Fluid/Electrolyte/Nutrition Mgmt, Infection Prevention, Medication Management & Education, Management of Risks & Complications, Management of Skin Intergrity, Nutrition Management, Pain Management, Patient/Family Support, Safety Management, Wound Management Intensity of Therapy to be met Patient to be seen: Min.3h per day/5 of 7d PT IPOC Problem List: Activity Tolerance, Functional Strength, Safety, Balance, Gait, Transfer, Bed Mobility, Other (w/c propulsion) Treatment Plan: Continue Plan of Care Bed Mobility, Education, Functional Activity Rahel, Functional Strength, Gait, Safety, Therapeutic Exercise, Transfers Treatment Duration: Jan 25, 2023 Frequency: At least 5 of 7 days/Wk (IRF) Estimated Hrs Per Day: 1.5 hours per day OT IPOC Problems: Decreased Activ Tolerance, Decreased Safety Aware, Decreased UE Strength, Dependent Transfers, Impaired Funct Balance, Impaired I ADL's, Impaired Self-Care Skills OT Treatment, Training and Edu: Yes Plan of Care: ADL Retraining, Functional Mobility, Group Exercise/Act as Ind, UE Funct Exercise/Act, UE Neuromus Re-Ed/Coord Treatment Duration: Jan 27, 2023 Frequency: At least 5 of 7 days/Wk (IRF) Estimated Hrs Per Day: 1.[address] IPOC Speech Therapy Treatment Plan: Discontinue ST Treatment Duration: Jan 05, 2023 Frequency: 1 time per week Estimated Hrs Per Day: Other (Pt is WFL, ST is not necessary at this time. ) Cooking Teacher/Case Mgmt Cooking Teacher/Case Managemen: Discharge Planning Dietitian/Ms Sql Developer Dietitian/Ms Sql Developer to monitor nutritional status and make changes and/or recommendations as needed and work with speech pathology on dietary upgrades as the occur. Physician IPOC Medical Issues being managed closely and that require the 24 hour availability of a physician: Complicated cervical spine surgery due to cervical stenosis with myelopathy and history of Guillain-Villagran will require close monitoring for any neurological decompensation and close monitoring for decompensation of clinical status Medical Issues: Bowel/Bladder Function, DVT Prophylaxis, Falls Precautions, Fluid/Electrolyte/Nutrition Balance, Infection Protection, Pain Management, Weight Bearing Precautions, Wound Care Brief Synthesis of Preadmission Screen, Post-Admission Evaluation, and Therapy Evaluations: PT and OT will focus on regaining function of lower extremities which are weak from myelopathy and will require increase in use of assistive devices in order to decrease dependency and help with independence in ADLs in order to return home with spouse Medical Prognosis: Good Anticipated Length of Stay: 10 days RADHA SEVERINO DO Jan 06, 2023 05:30
[2023-01-06] MEDS: FLECAINIDE 100 MG TABLET PO SCH ×2 (07:12→18:28)
[2023-01-06] MEDS: carvediloL 6.25 MG TABLET PO SCH ×2 (07:14→18:27)
[2023-01-06 08:00] VITALS: BP 132/63
[2023-01-06] MEDS: SENNA W/DOCUSATE TABLET PO SCH ×2 (08:53→21:10)
[2023-01-06] MEDS: DOCUSATE SODIUM 100 MG CAPSULE PO SCH ×2 (08:53→21:10)
[2023-01-06] MEDS: TAMSULOSIN 0.4 MG (FLOMAX) CAP PO SCH ×2 (08:54→21:10)
--- NOTE | 2023-01-06 09:51 | Occupational Ther Daily Note ---
OT Current Status-Daily Note Subjective Pt agreeable to OT Tx. Pt wants to get away from the sit to stand lift machine and focus on SB transfers. ADL-Treatment Therapy Code Descriptions/Definitions Functional [place] Measure: 0=Not Assessed/NA 4=Minimal Assistance 1=Total Assistance 5=Supervision or Setup 2=Maximal Assistance 6=Modified [place] 3=Moderate Assistance 7=Complete IndependenceSCALE: Activities may be completed with or without assistive devices. 3-Eaophviwhp-ncabzrv completes the activity by him/herself with no assistance from a helper. 5-Set-up or Clean-up Assistance-helper sets up or cleans up; patient completes activity. [place] assists only prior to or following the activity. 4-Supervision or Touching Assistance-helper provides verbal cues and/or touching/steadying and/or contact guard assistance as patient completes activity. Assistance may be provided throughout the activity or intermittently. 3-Partial/Moderate Assistance-helper does LESS THAN HALF the effort. [place] lifts, holds or supports trunk or limbs, but provides less than half the effort. 2-Substantial/Maximal Assistance-helper does MORE THAN HALF the effort. [place] lifts or holds trunk or limbs and provides more than half the effort. 8-Slmjzpjxl-nzewfa does ALL the effort. Patient does none of the effort to complete the activity. Or, the assistance of 2 or more helpers is required for the patient to complete the activity. If activity was not attempted, code reason: 7-Patient Refused. 9-Not Applicable-not attempted and the patient did not perform the activity before the current illness, exacerbation or injury. 10-Not Attempted due to Environmental Limitations-(lack of equipment, weather restraints, etc.). 88-Not Attempted due to Medical Conditions or Safety Concerns. Shower/Bathe Self (QC): 3 (Min A with posterior hygiene leaning to side. sponge bath performed on EOB, LH sponge provided for pt to wash BLEs lower legs/feet.) Upper Body Dressing (QC): 5 Lower Body Dressing (QC): 1 (Pt able to thread BLEs into pants, assist x2 in stand at FWW for pant hike.) On/Off Footwear: 4 (SBA, no AE) Other Treatment Pt in bed, transferred supine to sit EOB, SBA. Pt completed sponge bath at EOB, education provided in order to wash buttocks seated utilizing side leans, and LH sponge to wash LEs. Pt donned shirt with set up, gripper socks SBA for sitting balance, and pants with assist x2 in stand at FWW. Sit to stand from EOB, min A x2, mod A x1 standing balance. Pt sat back EOB, then used SB to transfer from EOB to w/c, min-mod A x2, with assistance for board placement, blocking B/L knees and VCs. Pt propelled w/c to therapy gym from room with vc to take bigger strides with propelling. OT tx focused on increasing BUE Strength and activity tolerance. Pt provided with printed HEP for moderate resistance theraband, x10 reps each of 6 exercises. Pt then completed arm bike, x10 mins with 15-20 Watt resistance, no rest breaks. Pt taken back to room via w/c. Pt left up in w/c, call light in reach and all needs met. Education OT Patient Education: Correct positioning, Energy conservation, Modified ADL techniques, Progress toward Goal/Update tx plan, Purpose of tx/functional activities, Rehab process Teaching Recipient: Patient Teaching Methods: Discussion Response to Teaching: Verbalize Understanding OT Longterm Goals Longterm Goals Time Frame: Jan 27, 2023 Acute change in mental status: 0 Inattention: 0 Disorganized thinkin Altered level of consciousness: 0 Eating (QC): 6 Oral Hygiene (QC): 6 Toileting Hygiene (QC): 4 Shower/Bathe Self (QC): 4 Upper Body Dressing (QC): 5 Lower Body Dressing (QC): 4 On/Off Footwear (QC): 5 Additional Goals: 1-Demonstrate ADL Tasks, 2-Verbalize Understanding, 3- ImproveStrength/[place]hel 1=Demonstrate adherence to instructed precautions during ADL tasks. 2=Patient will verbalize/demonstrate understanding of assistive devices/modifications for ADL. 3=Patient will improve strength/tolerance for activity to enable patient to perform ADL's. OT Education/Plan Problem List/Assessment Assessment: Decreased Activ Tolerance, Decreased UE Strength, Impaired Funct Balance, Impaired I ADL's, Impaired Self-Care Skills Discharge Recommendations Plan/Recommendations: Continue POC Treatment Plan/Plan of Care Patient would benefit from OT for education, treatment and training to promote independence in ADL's, mobility, safety and/or upper extremity function for ADL's. Plan of Care: ADL Retraining, Functional Mobility, Group Exercise/Act as Ind, UE Funct Exercise/Act, UE Neuromus Re-Ed/Coord Treatment Duration: Jan 27, 2023 Frequency: At least 5 of 7 days/Wk (IRF) Estimated Hrs Per Day: 1.5 hours per day Agreement: Yes Rehab Potential: Fair Time Start Time: 09:00 Stop Time: 10:00 DATE: Jan 06, 2023 Total Time Billed (hr/min): 60 Billed Treatment Time 1, ADL 2 (30'), EX 2 (30') ANALIA SOSA OT Jan 06, 2023 09:51
[2023-01-06] MEDS ORDERED: PATIENT MAY USE OWN MED,SINGLE MED PO SCH (10:30)
[2023-01-06] MEDS: SAVAYSA 60 MG PO SCH (11:20)
--- NOTE | 2023-01-06 15:10 | Therapy Group Daily Note ---
Therapy Daily Group Note Patient Education Topic Energy Cons, Exercises Exercises UE Exercise Session Ratio (pt:therapist): 4:1 Goal of Session: Energy Conservation Tech., UE/LE Strengthing Goal Met for this Session: Yes Pt Benefit of Group: Contributions to Others, Increased Functional Strength, Recognition of Peers, Socialization Other/Notes Pt attended OT group via w/c. OT group consisted of introductions (name, place living, favorite holiday), socialization, BUE dowel exercises seated, and education on benefits of exercises. Pt introduced self appropriately and actively listened to peers. Pt able to complete BUE dowel exercises, 2x10 reps with minimal cues. Pt then able to use dowel sol in UEs to "bat" balloons and balls around the group, and used BLEs to "kick" balls around group. Pt demonstrated understanding of educational topic. Pt propelled self back to his room. After therapy, pt up in w/c, call light in reach and all needs met. Start Time: 13:00 Stop Time: 14:00 Total Billed Treatment Time: 60 Total Billed Treatment 1, GRP ANALIA SOSA OT Jan 06, 2023 15:10
--- NOTE | 2023-01-06 17:23 | Physical Therapy Daily Note ---
PT Daily Note-Current Subjective Patient sitting in w/c in room with family at side when PT enters room. Patient agreeable to session and family wishes to observed and join in session. Patient reports no pain throughout session but poor sensation and proprioception with numbness/tingling throughout BLE. Pain Section J - Health Conditions 1. Rarely or not at all 2. Occasionally 3. Frequently 4. Almost constantly 8. Unable to answer Pain Effect on Sleep: 1 Pain Interference with Therapy: 1 Pain Interference w/Day-to-Day: 1 Transfers SCALE: Activities may be completed with or without assistive devices. 7-Xfqcalgoft-rvwdxty completes the activity by him/herself with no assistance from a helper. 5-Set-up or Clean-up Assistance-helper sets up or cleans up; patient completes activity. [place] assists only prior to or following the activity. 4-Supervision or Touching Assistance-helper provides verbal cues and/or touching/steadying and/or contact guard assistance as patient completes ac tivity. Assistance may be provided throughout the activity or intermittently. 3-Partial/Moderate Assistance-helper does LESS THAN HALF the effort. [place] lifts, holds or supports trunk or limbs, but provides less than half the effort. 2-Substantial/Maximal Assistance-helper does MORE THAN HALF the effort. [place] lifts or holds trunk or limbs and provides more than half the effort. 4-Tiryyqgpu-klhpai does ALL the effort. Patient does none of the effort to complete the activity. Or, the assistance of 2 or more helpers is required for the patient to complete the activity. If activity was not attempted, code reason: 7-Patient Refused. 9-Not Applicable-not attempted and the patient did not perform the activity before the current illness, exacerbation or injury. 10-Not Attempted due to Environmental Limitations-(lack of equipment, weather restraints, etc.). 88-Not Attempted due to Medical Conditions or Safety Concerns. Weight Bearing Right Lower Extremity: Right Full Weight Bearing Left Lower Extremity: Left Full Weight Bearing Neuromuscular Patient participated in progressive functional static and dynamic balance challenges at // bars. Patient initially perform bouts of static standing balance with BUE support for up to 3 minutes. Patient then progressed with lateral weight shifting R<>L with BUE support. Patient progressed to pre-gait dynamic balance challenges of sliding/lifting alternating LE to targets within 1 ft of LE while performing weight shift to contralateral side. Patient then perform alternating UE lifts from bar with BLE symmetrical WB, advancing gradually to 15 seconds without contact. Patient then perform alternating reaching challenges with single UE support at bar railing. Patient then progressed with dynamic movement of mini-squatting with BUE support to // bars focusing on BLE NM control and proprioception. Performed for improved NM control, proproception, balance, stability and postural control for improved independence with future functional activity. PT Alf Goals Alf Goals PT Elementary Education Tutor Goals Time Frame: Jan 25, 2023 Roll Left & Right (QC): 6 (/c bed rail) Sit to Lying (QC): 3 (min (A) 1) Lying-Sitting on Side/Bed(QC): 3 (min (A) 1) Sit to Stand (QC): 3 (mod (A) of 1) Chair/Eie-iu-Yuxbp Xfer(QC): 3 (mod (A) of 1 /c sliding board or stand pivot) Toilet Transfer (QC): 3 (mod (A) of 1) Car Transfer (QC): 3 (Mod (A) ) Does the Patient Walk: No and Walking Goal IS indicated Walk 10 feet (QC): 1 ((A) of 2 /c FWW) Walk 50ft with 2 Turns (QC): 1 ((A) of 2 /c FWW) Walk 150 ft (QC): 9 (max distance prior to surgery was 100' due to (B) knee and back pain) Walking 10ft on Uneven Surface: 1 ((A) of 2 /c FWW) 1 Step (curb) (QC): 1 ((A) of 2 with rails or FWW) 4 Steps (QC): 88 12 Steps (QC): 88 Picking up an Object (QC): 3 (mod (A) with walker and mathematics improvement teacher) Does the Pt use WC or Scooter?: Yes Wheel 50 feet with 2 turns (QC: 6 Type: Manual Wheel 150 feet: 6 PT Plan Treatment/Plan Treatment Plan: Continue Plan of Care Treatment Plan: Bed Mobility, Education, Functional Activity Rahel, Functional Strength, Gait, Safety, Therapeutic Exercise, Transfers Treatment Duration: Jan 25, 2023 Frequency: At least 5 of 7 days/Wk (IRF) Estimated Hrs Per Day: 1.5 hours per day Patient and/or Family Agrees t: Yes Discharge Recommendations Equpiment Recommendations-D/C: Manual Wheelchair Time Time In: 1440 Time Out: 1540 DATE: Jan 06, 2023 Total Billed Treatment Time: 60 Total Billed Treatment 1 session, 60 minutes [id number] TETE [id number] PT Jan 06, 2023 17:23
[2023-01-06 21:07] VITALS: BP 121/55
--- NOTE | 2023-01-07 06:29 | PM&R Progress Note ---
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 Labs reviewed Review of Systems General: Fatigue, Malaise Objective Exam Vital Signs Vital Signs Date Time Temp Pulse Resp B/P (MAP) Pulse Ox O2 Delivery O2 Flow Rate FiO2 01/07/23 17:45 87 144/64 (90) 01/07/23 09:00 Room Air 01/07/23 08:00 36.5 18 94 Capillary Refill : General Appearance: No Apparent Distress, WD/WN, Chronically ill, Obese HEENT: PERRL/EOMI, Normal ENT Inspection, Pharynx Normal Neck: Full Range of Motion, Normal Inspection, Non Tender, Supple, Carotid Bruit Respiratory: Chest Non Tender, Lungs Clear, Normal Breath Sounds, No Accessory Muscle Use, No Respiratory Distress Cardiovascular: Regular Rate, Rhythm, No Edema, No Gallop, No JVD, No Murmur, Normal Peripheral Pulses Gastrointestinal: Normal Bowel Sounds, No Organomegaly, No Pulsatile Mass, Non Tender, Soft Back: Normal Inspection, No CVA Tenderness, No Vertebral Tenderness Extremity: Normal Capillary Refill, Normal Inspection, Normal Range of Motion, Non Tender, No Calf Tenderness, No Pedal Edema Neurologic/Psychiatric: Alert, Oriented x3, No Motor/Sensory Deficits, 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 FIM Transfers Therapy Code Descriptions/Definitions Functional [place] Measure: 0=Not Assessed/NA 4=Minimal Assistance 1=Total Assistance 5=Supervision or Setup 2=Maximal Assistance 6=Modified [place] 3=Moderate Assistance 7=Complete IndependenceSCALE: Activities may be completed with or without assistive devices. 5-Mvbbtwwgau-xgpzqhj completes the activity by him/herself with no assistance from a helper. 5-Set-up or Clean-up Assistance-helper sets up or cleans up; patient completes activity. [place] assists only prior to or following the activity. 4-Supervision or Touching Assistance-helper provides verbal cues and/or touching/steadying and/or contact guard assistance as patient completes activity. Assistance may be provided throughout the activity or intermittently. 3-Partial/Moderate Assistance-helper does LESS THAN HALF the effort. [place] li fts, holds or supports trunk or limbs, but provides less than half the effort. 2-Substantial/Maximal Assistance-helper does MORE THAN HALF the effort. [place] lifts or holds trunk or limbs and provides more than half the effort. 7-Obnccirvx-kezcfy does ALL the effort. Patient does none of the effort to complete the activity. Or, the assistance of 2 or more helpers is required for the patient to complete the activity. If activity was not attempted, code reason: 7-Patient Refused. 9-Not Applicable-not attempted and the patient did not perform the activity before the current illness, exacerbation or injury. 10-Not Attempted due to Environmental Limitations-(lack of equipment, weather restraints, etc.). 88-Not Attempted due to Medical Conditions or Safety Concerns. Roll Left to Right (QC): 3 (Min (A) /c cues and bed rail use) Sit to Lying (QC): 1 (hard max (A) of 2 for supine>sit) Sit to Stand (QC): 1 (mod (A) of 2 to propeller inspector // bars, but able to maintain standing min (A) of 1 x 4.5 minutes, seated rest break, and another 4 minutes. (R)/(L) weight shifting activity and gaze (L)/(R) and up/down while standing. Some self-corrected spontaneous knee-buckling episodes. ) Chair/Hpl-xf-Aoycx Xfer(QC): 1 (sliding board transfer w/c >mat mod (A) of 2 /c max cues for w/c setup and board placement. Required that feet be blocked during transfer to prevent slippage.) Car Transfer (QC): 88 Gait Training Does the Patient Walk?: Yes Walk 10 feet (QC): 88 Walk 50 ft with 2 Turns(QC): 88 Walk 150 ft (QC): 9 (max distance prior to surgery was 100' due to knee and back pain) Walking 10ft/uneven surface-QC: 88 Wheelchair Training Does the Pt Use a Wheelchair?: Yes Distance: 170' Wheel 50 ft with 2 turns (QC): 4 (propelled own w/c room to gym SBA /c (B) UE's only (held legs up from entire trip). On return trip had patient plant heels on the floor and bend knees to assist with UE's propulsion and exercise hamstrings - SBA gym>room.) Wheel 150 ft (QC): 4 (cues for UE use for propulsion/180 degree turns) Type of Wheelchair: Manual Stair Training 1 Step (curb) (QC): 88 4 Steps (QC): 88 12 Steps (QC): 88 Balance Picking up an Object (QC): 88 ADL-Treatment Eating (QC): 6 (IND per pt report) Oral Hygiene (QC): 6 (Pt. completes grooming/oral hygiene while sitting at sink. ) Shower/Bathe Self (QC): 3 (Min A with posterior hygiene leaning to side. sponge bath performed on EOB, LH sponge provided for pt to wash BLEs lower legs/feet.) Upper Body Dressing (QC): 5 Lower Body Dressing (QC): 1 (Pt able to thread BLEs into pants, assist x2 in stand at FWW for pant hike.) On/Off Footwear (QC): 4 (SBA, no AE) Toileting Hygiene (QC): 1 (Per RN, 2 person required) Toilet Transfer (QC): 1 (Per RN, 2 person required) Assessment/Plan Assessment and Plan Assess & Plan/Chief Complaint Assessment: Cervical stenosis with post op myleopathy Urinary retention requiring in-dwelling catheter Post op constipation AF HTN HLP Plan: Pain control Monitor closely PT OT Catheter management Flomax 01/05/2023: Continue Pardo catheter Supportive care 01/06/2023: Supportive care Pardo cath DC on Monday Continue Flomax twice daily 01/07/2023: DC catheter Maintain Flomax Reinsert cath if can't void (1) Cervical myelopathy RADHA SEVERINO DO Jan 07, 2023 06:29
[2023-01-07] MEDS: FLECAINIDE 100 MG TABLET PO SCH ×2 (06:47→17:43)
[2023-01-07] MEDS: carvediloL 6.25 MG TABLET PO SCH ×2 (06:47→17:43)
[2023-01-07 06:51] VITALS: BP 123/621
[2023-01-07 08:00] VITALS: BP 116/62
[2023-01-07] MEDS: DOCUSATE SODIUM 100 MG CAPSULE PO SCH ×2 (09:57→20:27)
[2023-01-07] MEDS: SAVAYSA 60 MG PO SCH (09:57)
[2023-01-07] MEDS: TAMSULOSIN 0.4 MG (FLOMAX) CAP PO SCH ×2 (09:57→20:27)
[2023-01-07] MEDS: SENNA W/DOCUSATE TABLET PO SCH ×2 (09:58→20:30)
--- NOTE | 2023-01-07 10:36 | Physical Therapy Daily Note ---
PT Daily Note-Current Subjective Patient agreeable to PT. Co-treat 8:30-915 to assist with upright activities due to patient balance and coordination deficits. States he has tingling/pins and needles in feet and shins. States he can feel his feet contact the floor. Pain Section J - Health Conditions 1. Rarely or not at all 2. Occasionally 3. Frequently 4. Almost constantly 8. Unable to answer Pain Effect on Sleep: 1 Pain Interference with Therapy: 1 Pain Interference w/Day-to-Day: 1 Transfers SCALE: Activities may be completed with or without assistive devices. 4-Ppmpuytnek-auisnmm completes the activity by him/herself with no assistance from a helper. 5-Set-up or Clean-up Assistance-helper sets up or cleans up; patient completes activity. [place] assists only prior to or following the activity. 4-Supervision or Touching Assistance-helper provides verbal cues and/or touching/steadying and/or contact guard assistance as patient completes activity. Assistance may be provided throughout the activity or intermittently. 3-Partial/Moderate Assistance-helper does LESS THAN HALF the effort. [place] lift s, holds or supports trunk or limbs, but provides less than half the effort. 2-Substantial/Maximal Assistance-helper does MORE THAN HALF the effort. [place] lifts or holds trunk or limbs and provides more than half the effort. 5-Dwclbmama-cynbpb does ALL the effort. Patient does none of the effort to complete the activity. Or, the assistance of 2 or more helpers is required for the patient to complete the activity. If activity was not attempted, code reason: 7-Patient Refused. 9-Not Applicable-not attempted and the patient did not perform the activity before the current illness, exacerbation or injury. 10-Not Attempted due to Environmental Limitations-(lack of equipment, weather restraints, etc.). 88-Not Attempted due to Medical Conditions or Safety Concerns. Lying to Sitting/Side of Bed(Q: 4 (CGA using bed rail) Sit to Stand (QC): 1 (min (A) of 1 and CGA of 2nd person to stand at side rail in gym x 2. CGA to block feet-prevent sliding. Sit>stand inside // bars min (A) of 1, CGA of 2nd person to block feet) Chair/Iim-pr-Kstge Xfer(QC): 3 (Scoot/squat pivot bed>w/c, min (A) of 1 and blocking of patient's feet.) Transfer W/C to shower set mod (A) of 1 with grab bars, stand pivot, cues/assist for patient to obtain balance prior to moving feet and cues for hand placement.2nd person (A) to move w/c to ensure safe transfer. Weight Bearing Right Lower Extremity: Right Full Weight Bearing Left Lower Extremity: Left Full Weight Bearing Gait Training Distance: 7' x 3 in // bars Gait Persons Needed: 2 (for assist and w/c backup) 7' x 3 in // bars min (A) of 2 with cues to shorten stride length, 7' x 3 retrol with cues to shorten stride length and brings hands back with him on // bars. Wheelchair Training Wheel 50 ft with 2 turns (QC): 6 Wheel 150 ft (QC): 6 Type of Wheelchair: Manual 172' x 1, 162' x 1 /c (B) UE's and LE's -- shoes on this date to assist with w/c propulsion. Increased time to complete. Exercises Seated theraband exercise: RTB for (B) DF x 20, PF x 20, BTB to (B) LAQ x 20, knee flexion x 20, hip flexion x 20, hip extension x 20, hip abduction x 20. Isometric hip adduction/ball squeeze x 20. W/C push-ups x 10. Assessment Current Status: Good Progress PT Theatre Director Goals Halfway Goals PT Theatre Director Goals Time Frame: Jan 25, 2023 Roll Left & Right (QC): 6 (/c bed rail) Sit to Lying (QC): 3 (min (A) 1) Lying-Sitting on Side/Bed(QC): 3 (min (A) 1) Sit to Stand (QC): 3 (mod (A) of 1) Chair/Ojd-oq-Iaetq Xfer(QC): 3 (mod (A) of 1 /c sliding board or stand pivot) Toilet Transfer (QC): 3 (mod (A) of 1) Car Transfer (QC): 3 (Mod (A) ) Does the Patient Walk: No and Walking Goal IS indicated Walk 10 feet (QC): 1 ((A) of 2 /c FWW) Walk 50ft with 2 Turns (QC): 1 ((A) of 2 /c FWW) Walk 150 ft (QC): 9 (max distance prior to surgery was 100' due to (B) knee and back pain) Walking 10ft on Uneven Surface: 1 ((A) of 2 /c FWW) 1 Step (curb) (QC): 1 ((A) of 2 with rails or FWW) 4 Steps (QC): 88 12 Steps (QC): 88 Picking up an Object (QC): 3 (mod (A) with walker and rigger up) Does the Pt use WC or Scooter?: Yes Wheel 50 feet with 2 turns (QC: 6 Type: Manual Wheel 150 feet: 6 PT Plan Treatment/Plan Treatment Plan: Continue Plan of Care Treatment Plan: Bed Mobility, Education, Functional Activity Rahel, Functional Strength, Gait, Safety, Therapeutic Exercise, Transfers Treatment Duration: Jan 25, 2023 Frequency: At least 5 of 7 days/Wk (IRF) Estimated Hrs Per Day: 1.5 hours per day Patient and/or Family Agrees t: Yes Time Time In: 745 Time Out: 915 DATE: Jan 07, 2023 Total Billed Treatment Time: 90 Total Billed Treatment 1, WC(20'), 2 EX(30') 2FA(25), 1 GT(15') (co-treat 8:30-9:15) Mariella Ruelas PT Jan 07, 2023 10:36
--- NOTE | 2023-01-07 10:43 | Occupational Ther Daily Note ---
OT Current Status-Daily Note Subjective Pt alert, working with PT. Co-treat with PT([id number]), skill of 2 clinicians required to decrease fall risk, provide skilled care/instructions for safe transfers/ambulation, increase overall strength for functional mobility. PT focusing on transfers, ambulation and B LE strengthening while OT focusing on AD Ls, B UE placement during mobility and 2nd person skilled support for all mobility. Mental Status/Objective Patient Orientation: Person, Place, Time, Situation ADL-Treatment Pt agrees to complete shower after encouragement. BSC used during shower to allow pt to sit 100% of the time and reach all areas. Using BSC, hand held s hower, grabbars and LH sponge pt able to bathe/rinse/dry all areas except buttocks. Pt requires assist x2 to transfer into/out of shower for safety due to B knees buckling. Set up for UBD. Pt able to thread feet in/out of pants then as pt stands with bed rail, assist to hike pants. Pt able to don/doff slippers by self after setup. Independent sitting at sink to complete oral c are. After session, pt sitting in w/c with call light/phone in reach. All needs met in room. Therapy Code Descriptions/Definitions Functional [place] Measure: 0=Not Assessed/NA 4=Minimal Assistance 1=Total Assistance 5=Supervision or Setup 2=Maximal Assistance 6=Modified [place] 3=Moderate Assistance 7=Complete IndependenceSCALE: Activities may be completed with or without assistive devices. 6-Ufbtipzqhv-falmbdz completes the activity by him/herself with no assistance from a helper. 5-Set-up or Clean-up Assistance-helper sets up or cleans up; patient completes activity. [place] assists only prior to or following the activity. 4-Supervision or Touching Assistance-helper provides verbal cues and/or touching/steadying and/or contact guard assistance as patient completes ac tivity. Assistance may be provided throughout the activity or intermittently. 3-Partial/Moderate Assistance-helper does LESS THAN HALF the effort. [place] lifts, holds or supports trunk or limbs, but provides less than half the effort. 2-Substantial/Maximal Assistance-helper does MORE THAN HALF the effort. [place] lifts or holds trunk or limbs and provides more than half the effort. 0-Cybsoenfi-wsghos does ALL the effort. Patient does none of the effort to complete the activity. Or, the assistance of 2 or more helpers is required for the patient to complete the activity. If activity was not attempted, code reason: 7-Patient Refused. 9-Not Applicable-not attempted and the patient did not perform the activity before the current illness, exacerbation or injury. 10-Not Attempted due to Environmental Limitations-(lack of equipment, weather restraints, etc.). 88-Not Attempted due to Medical Conditions or Safety Concerns. Oral Hygiene (QC): 6 Shower/Bathe Self (QC): 3 Upper Body Dressing (QC): 5 Lower Body Dressing (QC): 3 On/Off Footwear: 5 Other Treatment Pt stood beside //bars 3x's with assist x2, see PT notes for assist levels. Pt then ambulated 2x's forward/backward with assist x2 and verbal cues for correct size of steps and hand placement, see PT notes for assist levels. OT Chcf Goals Chcf Goals Time Frame: Jan 27, 2023 Acute change in mental status: 0 Inattention: 0 Disorganized thinkin Altered level of consciousness: 0 Eating (QC): 6 Oral Hygiene (QC): 6 Toileting Hygiene (QC): 4 Shower/Bathe Self (QC): 4 Upper Body Dressing (QC): 5 Lower Body Dressing (QC): 4 On/Off Footwear (QC): 5 Additional Goals: 1-Demonstrate ADL Tasks, 2-Verbalize Understanding, 3- ImproveStrength/Ra[place] 1=Demonstrate adherence to instructed precautions during ADL tasks. 2=Patient will verbalize/demonstrate understanding of assistive devices/modifications for ADL. 3=Patient will improve strength/tolerance for activity to enable patient to perform ADL's. OT Education/Plan Problem List/Assessment Assessment: Decreased Activ Tolerance, Decreased UE Strength, Dependent Transfers, Impaired Funct Balance, Impaired Self-Care Skills Discharge Recommendations Plan/Recommendations: Continue POC Treatment Plan/Plan of Care Patient would benefit from OT for education, treatment and training to promote independence in ADL's, mobility, safety and/or upper extremity function for ADL's. Plan of Care: ADL Retraining, Functional Mobility, Group Exercise/Act as Ind, UE Funct Exercise/Act, UE Neuromus Re-Ed/Coord Treatment Duration: Jan 27, 2023 Frequency: At least 5 of 7 days/Wk (IRF) Estimated Hrs Per Day: 1.5 hours per day Agreement: Yes Rehab Potential: Fair Time Start Time: 08:30 Stop Time: 10:00 DATE: Jan 07, 2023 Total Time Billed (hr/min): 90 Billed Treatment Time 1 visit-ADL 3 (45 min) FA 3 (45 min) co-treat with PT ([id number]), individual ([id number]) ANNA KAY Jan 07, 2023 10:43
[2023-01-07 17:45] VITALS: BP 144/64
[2023-01-07] MEDS ORDERED: LIDOCAINE UROJET 2% GEL 10 ML PKG TOP ONE (19:00)
[2023-01-07 20:17] VITALS: BP 137/64
[2023-01-08 06:37] VITALS: BP 124/62
[2023-01-08] MEDS: FLECAINIDE 100 MG TABLET PO SCH ×2 (06:39→18:08)
[2023-01-08] MEDS: carvediloL 6.25 MG TABLET PO SCH ×2 (06:39→18:08)
[2023-01-08 08:00] VITALS: BP 114/60
[2023-01-08] MEDS: SAVAYSA 60 MG PO SCH (08:42)
[2023-01-08] MEDS: DOCUSATE SODIUM 100 MG CAPSULE PO SCH ×2 (08:42→20:31)
[2023-01-08] MEDS: TAMSULOSIN 0.4 MG (FLOMAX) CAP PO SCH ×2 (08:42→20:31)
[2023-01-08] MEDS: SENNA W/DOCUSATE TABLET PO SCH ×2 (09:51→20:32)
--- NOTE | 2023-01-08 13:42 | PM&R Progress Note ---
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 Labs reviewed Review of Systems General: Fatigue, Malaise Objective Exam Vital Signs Vital Signs Date Time Temp Pulse Resp B/P (MAP) Pulse Ox O2 Delivery O2 Flow Rate FiO2 01/08/23 09:00 Room Air 01/08/23 08:00 36.5 87 16 114/60 (78) 95 Capillary Refill : General Appearance: No Apparent Distress, WD/WN, Chronically ill, Obese HEENT: PERRL/EOMI, Normal ENT Inspection, Pharynx Normal Neck: Full Range of Motion, Normal Inspection, Non Tender, Supple, Carotid Bruit Respiratory: Chest Non Tender, Lungs Clear, Normal Breath Sounds, No Accessory Muscle Use, No Respiratory Distress Cardiovascular: Regular Rate, Rhythm, No Edema, No Gallop, No JVD, No Murmur, Normal Peripheral Pulses Gastrointestinal: Normal Bowel Sounds, No Organomegaly, No Pulsatile Mass, Non Tender, Soft Back: Normal Inspection, No CVA Tenderness, No Vertebral Tenderness Extremity: Normal Capillary Refill, Normal Inspection, Normal Range of Motion, Non Tender, No Calf Tenderness, No Pedal Edema Neurologic/Psychiatric: Alert, Oriented x3, No Motor/Sensory Deficits, 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 FIM Transfers Therapy Code Descriptions/Definitions Functional [place] Measure: 0=Not Assessed/NA 4=Minimal Assistance 1=Total Assistance 5=Supervision or Setup 2=Maximal Assistance 6=Modified [place] 3=Moderate Assistance 7=Complete IndependenceSCALE: Activities may be completed with or without assistive devices. 5-Hogtljgzyf-ibbsfkc completes the activity by him/herself with no assistance from a helper. 5-Set-up or Clean-up Assistance-helper sets up or cleans up; patient completes activity. [place] assists only prior to or following the activity. 4-Supervision or Touching Assistance-helper provides verbal cues and/or touching/steadying and/or contact guard assistance as patient completes activity. Assistance may be provided throughout the activity or intermittently. 3-Partial/Moderate Assistance-helper does LESS THAN HALF the effort. [place] lifts, holds or supports trunk or limbs, but provides less than half the effort. 2-Substantial/Maximal Assistance-helper does MORE THAN HALF the effort. [place] lifts or holds trunk or limbs and provides more than half the effort. 9-Fqpmthsua-keakir does ALL the effort. Patient does none of the effort to complete the activity. Or, the assistance of 2 or more helpers is required for the patient to complete the activity. If activity was not attempted, code reason: 7-Patient Refused. 9-Not Applicable-not attempted and the patient did not perform the activity before the current illness, exacerbation or injury. 10-Not Attempted due to Environmental Limitations-(lack of equipment, weather restraints, etc.). 88-Not Attempted due to Medical Conditions or Safety Concerns. Roll Left to Right (QC): 3 (Min (A) /c cues and bed rail use) Sit to Lying (QC): 1 (hard max (A) of 2 for supine>sit) Sit to Stand (QC): 1 (min (A) of 1 and CGA of 2nd person to stand at side rail in gym x 2. CGA to block feet-prevent sliding. Sit>stand inside // bars min (A) of 1, CGA of 2nd person to block feet) Chair/Abp-zf-Qkrth Xfer(QC): 3 (Scoot/squat pivot bed>w/c, min (A) of 1 and blocking of patient's feet.) Car Transfer (QC): 88 Gait Training Does the Patient Walk?: Yes Distance: 7' x 3 in // bars Walk 10 feet (QC): 88 Walk 50 ft with 2 Turns(QC): 88 Walk 150 ft (QC): 9 (max distance prior to surgery was 100' due to knee and back pain) Walking 10ft/uneven surface-QC: 88 Gait Persons Needed: 2 (for assist and w/c backup) Wheelchair Training Does the Pt Use a Wheelchair?: Yes Distance: 170' Wheel 50 ft with 2 turns (QC): 6 Wheel 150 ft (QC): 6 Type of Wheelchair: Manual Stair Training 1 Step (curb) (QC): 88 4 Steps (QC): 88 12 Steps (QC): 88 Balance Picking up an Object (QC): 88 ADL-Treatment Eating (QC): 6 (IND per pt report) Oral Hygiene (QC): 6 Shower/Bathe Self (QC): 3 Upper Body Dressing (QC): 5 Lower Body Dressing (QC): 3 On/Off Footwear (QC): 5 Toileting Hygiene (QC): 1 (Per RN, 2 person required) Toilet Transfer (QC): 1 (Per RN, 2 person required) Assessment/Plan Assessment and Plan Assess & Plan/Chief Complaint Assessment: Cervical stenosis with post op myleopathy Urinary retention requiring in-dwelling catheter Post op constipation AF HTN HLP Plan: Pain control Monitor closely PT OT Catheter management Flomax 01/05/2023: Continue Pardo catheter Supportive care 01/06/2023: Supportive care Pardo cath DC on Monday Continue Flomax twice daily 01/07/2023: DC catheter Maintain Flomax Reinsert cath if can't void 01/08/2023: We will consult urology tomorrow (1) Cervical myelopathy RADHA SEVERINO DO Jan 08, 2023 13:42
[2023-01-08 18:11] VITALS: BP 133/72
[2023-01-08 20:00] VITALS: BP 111/59
--- NOTE | 2023-01-09 05:21 | PM&R Progress Note ---
Subjective HPI/CC On Admission Date Seen by Provider: Jan 09, 2023 Time Seen by Provider: 09:00 Subjective/Events-last exam 01/09/2023: Doing better Dr Maradiaga will see him due to continued urinary retention Pain controlled No falls 01/08/2023: Patient failed spontaneous voiding trial Reinserted the catheter Bowels are moving No falls 01/07/2023: Much improved DC cath today hopefully able to void No pain reported BM + 01/06/2023: Patient doing well Participation is good Pardo catheter still in place Bowels are moving Pain is controlled 01/05/2023: Patient doing a lot better Upright in chair Moving legs and arms 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 Labs reviewed Review of Systems General: Fatigue, Malaise Objective Exam Vital Signs Vital Signs Date Time Temp Pulse Resp B/P (MAP) Pulse Ox O2 Delivery O2 Flow Rate FiO2 01/09/23 21:25 96 Room Air 01/09/23 20:09 36.5 60 20 121/61 (81) Capillary Refill : General Appearance: No Apparent Distress, WD/WN, Chronically ill, Obese HEENT: PERRL/EOMI, Normal ENT Inspection, Pharynx Normal Neck: Full Range of Motion, Normal Inspection, Non Tender, Supple, Carotid Bruit Respiratory: Chest Non Tender, Lungs Clear, Normal Breath Sounds, No Accessory Muscle Use, No Respiratory Distress Cardiovascular: Regular Rate, Rhythm, No Edema, No Gallop, No JVD, No Murmur, Normal Peripheral Pulses Gastrointestinal: Normal Bowel Sounds, No Organomegaly, No Pulsatile Mass, Non Tender, Soft Back: Normal Inspection, No CVA Tenderness, No Vertebral Tenderness Extremity: Normal Capillary Refill, Normal Inspection, Normal Range of Motion, Non Tender, No Calf Tenderness, No Pedal Edema Neurologic/Psychiatric: Alert, Oriented x3, No Motor/Sensory Deficits, assessor II- XII Norm as Tested, Abnormal Gait, Depressed Affect, Motor Weakness Skin: Normal Color, Warm/Dry Lymphatic: No Adenopathy Results/Procedures Lab Patient resulted labs reviewed. FIM Transfers Therapy Code Descriptions/Definitions Functional [place] Measure: 0=Not Assessed/NA 4=Minimal Assistance 1=Total Assistance 5=Supervision or Setup 2=Maximal Assistance 6=Modified [place] 3=Moderate Assistance 7=Complete IndependenceSCALE: Activities may be completed with or without assistive devices. 7-Ptbipzbwem-feubvpk completes the activity by him/herself with no assistance from a helper. 5-Set-up or Clean-up Assistance-helper sets up or cleans up; patient completes activity. [place] assists only prior to or following the activity. 4-Supervision or Touching Assistance-helper provides verbal cues and/or touching/steadying and/or contact guard assistance as patient completes activity. Assistance may be provided throughout the activity or intermittently. 3-Partial/Moderate Assistance-helper does LESS THAN HALF the effort. [place] lifts, holds or supports trunk or limbs, but provides less than half the effort. 2-Substantial/Maximal Assistance-helper does MORE THAN HALF the effort. [place] lifts or holds trunk or limbs and provides more than half the effort. 7-Buiepigda-rsdxzm does ALL the effort. Patient does none of the effort to complete the activity. Or, the assistance of 2 or more helpers is required for the patient to complete the activity. If activity was not attempted, code reason: 7-Patient Refused. 9-Not Applicable-not attempted and the patient did not perform the activity before the current illness, exacerbation or injury. 10-Not Attempted due to Environmental Limitations-(lack of equipment, weather restraints, etc.). 88-Not Attempted due to Medical Conditions or Safety Concerns. Roll Left to Right (QC): 3 (Min (A) /c cues and bed rail use) Sit to Lying (QC): 1 (hard max (A) of 2 for supine>sit) Sit to Stand (QC): 1 (min (A) of 1 and CGA of 2nd person to stand at side rail in gym x 2. CGA to block feet-prevent sliding. Sit>stand inside // bars min (A) of 1, CGA of 2nd person to block feet) Chair/Npn-tx-Wbilk Xfer(QC): 3 (Scoot/squat pivot bed>w/c, min (A) of 1 and blocking of patient's feet.) Car Transfer (QC): 88 Gait Training Does the Patient Walk?: Yes Distance: 7' x 3 in // bars Walk 10 feet (QC): 88 Walk 50 ft with 2 Turns(QC): 88 Walk 150 ft (QC): 9 (max distance prior to surgery was 100' due to knee and back pain) Walking 10ft/uneven surface-QC: 88 Gait Persons Needed: 2 (for assist and w/c backup) Wheelchair Training Does the Pt Use a Wheelchair?: Yes Distance: 170' Wheel 50 ft with 2 turns (QC): 6 Wheel 150 ft (QC): 6 Type of Wheelchair: Manual Stair Training 1 Step (curb) (QC): 88 4 Steps (QC): 88 12 Steps (QC): 88 Balance Picking up an Object (QC): 88 ADL-Treatment Eating (QC): 6 (IND per pt report) Oral Hygiene (QC): 6 Shower/Bathe Self (QC): 3 Upper Body Dressing (QC): 5 Lower Body Dressing (QC): 3 On/Off Footwear (QC): 5 Toileting Hygiene (QC): 1 (Per RN, 2 person required) Toilet Transfer (QC): 1 (Per RN, 2 person required) Assessment/Plan Assessment and Plan Assess & Plan/Chief Complaint Assessment: Cervical stenosis with post op myleopathy Urinary retention requiring in-dwelling catheter Post op constipation AF HTN HLP h/o Guillain [place] Plan: Pain control Monitor closely PT OT Catheter management Flomax 01/05/2023: Continue Pardo catheter Supportive care 01/06/2023: Supportive care Pardo cath DC on Monday Continue Flomax twice daily 01/07/2023: DC catheter Maintain Flomax Reinsert cath if can't void 01/08/2023: We will consult urology tomorrow 01/09/2023: Pardo cath Dr Maradiaga Monitor closely (1) Cervical myelopathy RADHA SEVERINO DO Jan 09, 2023 05:21
[2023-01-09 06:46] VITALS: BP 116/59
[2023-01-09] MEDS: FLECAINIDE 100 MG TABLET PO SCH ×2 (06:47→18:16)
[2023-01-09] MEDS: carvediloL 6.25 MG TABLET PO SCH ×2 (06:47→18:15)
[2023-01-09 07:54] VITALS: BP 114/56
[2023-01-09] MEDS: SAVAYSA 60 MG PO SCH (08:44)
[2023-01-09] MEDS: DOCUSATE SODIUM 100 MG CAPSULE PO SCH ×2 (08:45→21:27)
[2023-01-09] MEDS: SENNA W/DOCUSATE TABLET PO SCH ×2 (08:45→21:27)
[2023-01-09] MEDS: TAMSULOSIN 0.4 MG (FLOMAX) CAP PO SCH ×2 (08:46→21:27)
--- NOTE | 2023-01-09 11:40 | Occupational Ther Daily Note ---
OT Current Status-Daily Note Subjective Pt alert, lying in bed. Pt agrees to therapy. No c/o pain. Family in room. Pt talks about numbness then with further discussions talks about only tingling in ankles and feet which has lessened from weekend. PT/OT co-treat ([id number]), skills of 2 clinicians required to decrease fall risk, increase mobility and stamina for daily functional tasks. PT focusing on transfers, ambulation and B LE strengthening while OT focusing on functional mobility, assisting with skilled care during ambulation and B UE strengthening. Mental Status/Objective Patient Orientation: Person, Place, Time, Situation ADL-Treatment Pt declines showering and changing clothing. Therapy Code Descriptions/Definitions Functional [place] Measure: 0=Not Assessed/NA 4=Minimal Assistance 1=Total Assistance 5=Supervision or Setup 2=Maximal Assistance 6=Modified [place] 3=Moderate Assistance 7=Complete IndependenceSCALE: Activities may be completed with or without assistive devices. 0-Cmwbviyzps-xjifllh completes the activity by him/herself with no assistance from a helper. 5-Set-up or Clean-up Assistance-helper sets up or cleans up; patient completes activity. [place] assists only prior to or following the activity. 4-Supervision or Touching Assistance-helper provides verbal cues and/or touching/steadying and/or contact guard assistance as patient completes activity. Assistance may be provided throughout the activity or intermittently. 3-Partial/Moderate Assistance-helper does LESS THAN HALF the effort. [place] lifts, holds or supports trunk or limbs, but provides less than half the effort. 2-Substantial/Maximal Assistance-helper does MORE THAN HALF the effort. [place] lifts or holds trunk or limbs and provides more than half the effort. 6-Bkqkzjfht-cackfq does ALL the effort. Patient does none of the effort to complete the activity. Or, the assistance of 2 or more helpers is required for the patient to complete the activity. If activity was not attempted, code reason: 7-Patient Refused. 9-Not Applicable-not attempted and the patient did not perform the activity before the current illness, exacerbation or injury. 10-Not Attempted due to Environmental Limitations-(lack of equipment, weather restraints, etc.). 88-Not Attempted due to Medical Conditions or Safety Concerns. Other Treatment HOB slightly raised, pt able to go from supine to EOB using bed rails by self. CGA for squat pivot transfer from EOB to w/c. Pt propelled w/c from room to therapy gym with vc for reaching back further on wheels when propelling. Completed arm bike in standing using R then L UE for [id number] each 15 keys resistance each. Pt then ambulated forward/backward in //bars 5x's with assist x2 for safety due to knee bucklinx's-1x each, 2x's-2x each, 1x-3x each. Pt then completed B UE/LE seated exercises using strong resistance theraband 6 exercises 1 set of 10 reps to increase strength for daily functional tasks. Skilled instruction for correct technique and modifications when needed. After session, pt left with PT with all needs met. OT Motor Equipment Commanding Officer Goals Motor Equipment Commanding Officer Goals Time Frame: Jan 27, 2023 Acute change in mental status: 0 Inattention: 0 Disorganized thinkin Altered level of consciousness: 0 Eating (QC): 6 Oral Hygiene (QC): 6 Toileting Hygiene (QC): 4 Shower/Bathe Self (QC): 4 Upper Body Dressing (QC): 5 Lower Body Dressing (QC): 4 On/Off Footwear (QC): 5 Additional Goals: 1-Demonstrate ADL Tasks, 2-Verbalize Understanding, 3- ImproveStrength/Rahel 1=Demonstrate adherence to instructed precautions during ADL tasks. 2=Patient will verbalize/demonstrate understanding of assistive devices/modifications for ADL. 3=Patient will improve strength/tolerance for activity to enable patient to perform ADL's. OT Education/Plan Problem List/Assessment Assessment: Decreased Activ Tolerance, Decreased Safety Aware, Decreased UE Strength, Impaired Funct Balance, Impaired Self-Care Skills, Restricted Funct UE ROM Discharge Recommendations Plan/Recommendations: Continue POC Treatment Plan/Plan of Care Patient would benefit from OT for education, treatment and training to promote independence in ADL's, mobility, safety and/or upper extremity function for ADL's. Plan of Care: ADL Retraining, Functional Mobility, Group Exercise/Act as Ind, UE Funct Exercise/Act, UE Neuromus Re-Ed/Coord Treatment Duration: Jan 27, 2023 Frequency: At least 5 of 7 days/Wk (IRF) Estimated Hrs Per Day: 1.5 hours per day Agreement: Yes Rehab Potential: Fair Time Start Time: 10:30 Stop Time: 12:00 DATE: Jan 09, 2023 Total Time Billed (hr/min): 90 Billed Treatment Time 1 visit-FA 3 (45 min) EX 3 (45 min) co-treat with PT [id number], individual [id number] ANNA KAY Jan 09, 2023 11:40
--- NOTE | 2023-01-09 12:02 | Consultation ---
History of Present Illness History of Present Illness Patient Consulted On(cory/time) 01/09/23 11:59 History of Present Illness 72-year-old male with postoperative urinary retention after cervical surgery 01/02/2023. Patient has been started on 2 Flomax a day but has failed 2 voiding trials. He reportedly had no urologic issues prior to his cervical surgery. He still has extreme lower extremity weakness postoperatively. He is now in rehab. Allergies and Home Medications Allergies Coded Allergies: No Known Allergies (Verified Allergy, Unknown, 01/06/23) Patient Home Medication List Acetaminophen (Tylenol Extra Strength) 500 Mg Tablet, 500 MG PO Q6H PRN for PAIN-MILD (1-4), (Reported) Entered as Reported by: KSENIA GROVE on 01/04/231138 Last Action: Reviewed Carvedilol (Carvedilol) 6.25 Mg Tablet, 6.25 MG PO BID WITH MEALS, (Reported) Entered as Reported by: KSENIA GROVE on 01/04/231138 Last Action: Reviewed Cyclobenzaprine HCl (Cyclobenzaprine HCl) 10 Mg Tablet, 10 MG PO Q8H PRN for MUSCLE SPASMS, (Reported) Entered as Reported by: KSENIA GROVE on 01/04/231138 Last Action: Continued Diazepam (Diazepam) 2 Mg Tablet, 2 MG PO Q8H PRN for MUSCLE SPASMS, (Reported) Entered as Reported by: KSENIA GROVE on 01/04/231138 Last Action: Reviewed Docusate Sodium (Docusate Sodium) 100 Mg Capsule, 100 MG PO BID, (Reported) Entered as Reported by: KSENIA GROVE on 01/04/231138 Last Action: Reviewed Flecainide Acetate (Flecainide Acetate) 50 Mg Tablet, 50 MG PO Q12H, (Reported) Entered as Reported by: KSENIA GROVE on 01/04/231138 Last Action: Reviewed Hydrocodone/Acetaminophen (Hydrocodone-Acetamin 5-325 mg) 5 Mg-325 Mg Tablet, 1 EA PO Q4H PRN for PAIN-MODERATE (5-7), (Reported) Entered as Reported by: KSENIA GROVE on 01/04/231138 Last Action: Reviewed Lisinopril/Hydrochlorothiazide (Lisinopril-Hctz 20-25 mg Tab) 20 Mg-25 Mg Tablet, 1 EACH PO HS, (Reported) Entered as Reported by: KSENIA GROVE on 01/04/231138 Last Action: Reviewed Naloxone HCl (Naloxone HCl) 4 Mg/Actuation Ideal, 1 SPRAY NS UD PRN for OPIOID OVERDOSE, (Reported) Entered as Reported by: KSENIA GROVE on 01/04/231138 Last Action: Reviewed Tamsulosin HCl (Flomax) 0.4 Mg Cap, 0.4 MG PO 1800 AFTER SUPPER, (Reported) Entered as Reported by: KSENIA GROVE on 01/04/231138 Last Action: Reviewed Past Ukfoulx-Rnjdfd-Qgwtik Hx Patient Social History Tobacco Use?: No Smoking Status: Former Smoker Use of E-Cig and/or Vaping dev: No Use of E-Cig and/or Vaping Waldemar: Never a User Substance use?: No Alcohol Use?: No Pt feels they are or have been: No Immunizations Up To Date Influenza Vaccine Up-to-Date: No; Not Current COVID19 Vaccine 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 Past Medical History Surgery/Hospitalization HX: HTN, A-FIB, ARTHRITIS, OSTEOARTHRITIS, GUILLAIN-BARRE SYNDROME, HLD, CINDY-CPAP PSH: LUMBAR LAMINECTOMY, LT KNEE REPLACEMENT, RT TOTOAL HIP, RT KNEE REPLACEMENT Currently Using CPAP: No Currently Using BIPAP: No Atrial Fibrillation, High Cholesterol, Hypertension Arthritis, Chronic Back Pain Physical Exam-General Problems Physical Exam Vital Signs Vital Signs - First Documented 01/04/23 13:30 Temp 36.4 Pulse 66 Resp 18 B/P (MAP) 137/75 (95) Pulse Ox 98 O2 Delivery Room Air Capillary Refill : Assessment/Plan Assessment/Plan Admission Diagnosis/Plan Patient with postoperative urinary retention status post cervical surgery. He has extensive lower extremity weakness. I recommended adding Urecholine to his Flomax. Patient is in rehab right now and I will come back tomorrow morning to examine him. I spoke with his . Clinical Quality Measures DVT/VTE Risk/Contraindication: Contraindications-Pharm: Other *list below* Other: spinal surgery Jaz BECKER MD Jan 09, 2023 12:01
[2023-01-09] MEDS: BETHANECHOL 10 MG TABLET PO SCH ×2 (16:01→21:27)
--- NOTE | 2023-01-09 16:10 | Physical Therapy Daily Note ---
PT Daily Note-Current Subjective Pt presents in PT gym with OT. Pt denies pain and is agreeable to PT/OT cotreat. Pt states his L knee "jeanne" sometimes. Pt reports tingling still in B LE's and abdomen area. Pain Section J - Health Conditions 1. Rarely or not at all 2. Occasionally 3. Frequently 4. Almost constantly 8. Unable to answer Pain Effect on Sleep: 1 Pain Interference with Therapy: 1 Pain Interference w/Day-to-Day: 1 Mental Status Patient Orientation: Person, Place, Time, Situation Attachments: Pardo Catheter Transfers SCALE: Activities may be completed with or without assistive devices. 7-Gbqvbckdig-ooxrzgn completes the activity by him/herself with no assistance f rom a helper. 5-Set-up or Clean-up Assistance-helper sets up or cleans up; patient completes activity. [place] assists only prior to or following the activity. 4-Supervision or Touching Assistance-helper provides verbal cues and/or touching/steadying and/or contact guard assistance as patient completes activity. Assistance may be provided throughout the activity or intermittently. 3-Partial/Moderate Assistance-helper does LESS THAN HALF the effort. [place] lifts, holds or supports trunk or limbs, but provides less than half the effort. 2-Substantial/Maximal Assistance-helper does MORE THAN HALF the effort. [place] lifts or holds trunk or limbs and provides more than half the effort. 2-Zfcbsuzpe-raxpuk does ALL the effort. Patient does none of the effort to complete the activity. Or, the assistance of 2 or more helpers is required for the patient to complete the activity. If activity was not attempted, code reason: 7-Patient Refused. 9-Not Applicable-not attempted and the patient did not perform the activity before the current illness, exacerbation or injury. 10-Not Attempted due to Environmental Limitations-(lack of equipment, weather restraints, etc.). 88-Not Attempted due to Medical Conditions or Safety Concerns. Sit to Stand (QC): 3 (Alfie to FWW. CGA in (II)) Weight Bearing Right Lower Extremity: Right Full Weight Bearing Left Lower Extremity: Left Full Weight Bearing Gait Training Does the Patient Walk?: Yes Walk 10 feet (QC): 3 (Alfie for L knee buckling and max cues) Walk 50 ft with 2 Turns(QC): 88 Walk 150 ft (QC): 88 Walking 10ft/uneven surface-QC: 88 Gait Assistive Device: Parallel Bars Pt amb forward/backward in (II), Alfie x 2 for L knee buckling with W/C follow. Wheelchair Training Does the Pt Use a Wheelchair?: Yes Wheel 50 ft with 2 turns (QC): 4 (Vc's for LE use) Wheel 150 ft (QC): 4 (Vc's for LE use) Type of Wheelchair: Manual Pt performed W/C mobility x ~150' with SBA for vc's. Exercises THER EX: Seated B LE x 10 reps: LAQ (with focus on eccentric & concentric control /s recoil), Hip flex (marching), HS stretch x 30s each, HS Curls x 15reps (with Blue Ther Band), Hip ABD & ADD x 10reps (with Blue Ther Band). Treatments PT/OT co-treat ([id number]), skills of 2 clinicians required to decrease fall risk, increase mobility and stamina for daily functional tasks. PT focusing on transfers, ambulation and B LE strengthening while OT focusing on functional mobility, assisting with skilled care during ambulation and B UE strengthening. Pt then ambulated forward/backward in //bars 5x's with assist x2 for safety due to knee bucklinx's-1x each, 2x's-2x each, 1x-3x each. Pt conducted multiple sit<>stand xfers with CGA during ther ex. Pt then completed B UE/LE seated exercises using strong resistance theraband 6 exercises 1 set of 10 reps to increase strength for daily functional tasks. Skilled instruction for correct technique and modifications when needed. Pt performed W/C mobility from PT gym around ARU ~150' with SBA for vc's to use LE for more momentum and less UE strength required. Post tx with pt sitting in W/C in room, call light within reach, and all needs met. Assessment Current Status: Good Progress Pt required minimal rest breaks and was willing to conduct ther ex and tx. PT Retirement Goals Retirement Goals PT Retirement Goals Time Frame: Jan 25, 2023 Roll Left & Right (QC): 6 (/c bed rail) Sit to Lying (QC): 3 (min (A) 1) Lying-Sitting on Side/Bed(QC): 3 (min (A) 1) Sit to Stand (QC): 3 (mod (A) of 1) Chair/Sve-rx-Lrnef Xfer(QC): 3 (mod (A) of 1 /c sliding board or stand pivot) Toilet Transfer (QC): 3 (mod (A) of 1) Car Transfer (QC): 3 (Mod (A) ) Does the Patient Walk: No and Walking Goal IS indicated Walk 10 feet (QC): 1 ((A) of 2 /c FWW) Walk 50ft with 2 Turns (QC): 1 ((A) of 2 /c FWW) Walk 150 ft (QC): 9 (max distance prior to surgery was 100' due to (B) knee and back pain) Walking 10ft on Uneven Surface: 1 ((A) of 2 /c FWW) 1 Step (curb) (QC): 1 ((A) of 2 with rails or FWW) 4 Steps (QC): 88 12 Steps (QC): 88 Picking up an Object (QC): 3 (mod (A) with walker and research biostatistician) Does the Pt use WC or Scooter?: Yes Wheel 50 feet with 2 turns (QC: 6 Type: Manual Wheel 150 feet: 6 PT Plan Problem List Problem List: Activity Tolerance, Functional Strength, Balance Treatment/Plan Treatment Plan: Continue Plan of Care Treatment Plan: Bed Mobility, Education, Functional Activity Rahel, Functional Strength, Gait, Safety, Therapeutic Exercise, Transfers Treatment Duration: Jan 25, 2023 Frequency: At least 5 of 7 days/Wk (IRF) Estimated Hrs Per Day: 1.5 hours per day Patient and/or Family Agrees t: Yes Safety Risks/Education Patient Education: Gait Training, W/C Management Teaching Recipient: Patient, Family Teaching Methods: Demonstration, Discussion Response to Teaching: Verbalize Understanding, Return Demonstration Discharge Recommendations Plan Continue with tx per pt POC. Time Time In: 1045 Time Out: 1215 DATE: Jan 09, 2023 Total Billed Treatment Time: 90 Total Billed Treatment 1, EX3 (45m), GT2 (30m), WC (15m). CoTx with OT ([id number]) (75m). HERBERT REYES VOLLEYBALL PLAYER Jan 09, 2023 16:09
[2023-01-09 18:17] VITALS: BP 148/66
[2023-01-09 20:09] VITALS: BP 121/61
[2023-01-10 06:20] VITALS: BP 115/66
[2023-01-10] MEDS: BETHANECHOL 10 MG TABLET PO SCH ×3 (06:23→21:22)
[2023-01-10] MEDS: FLECAINIDE 100 MG TABLET PO SCH ×2 (06:24→18:16)
[2023-01-10] MEDS: carvediloL 6.25 MG TABLET PO SCH ×2 (06:28→18:16)
[2023-01-10 08:00] VITALS: BP 127/63
--- NOTE | 2023-01-10 08:14 | PM&R Progress Note ---
Subjective HPI/CC On Admission Date Seen by Provider: Jan 10, 2023 Time Seen by Provider: 12:00 Subjective/Events-last exam 01/10/2023: Patient doing a lot better Denies any new problems Reviewed meds and labs Transferring with walker pretty well 01/09/2023: Doing better Dr Maradiaga will see him due to continued urinary retention Pain controlled No falls 01/08/2023: Patient failed spontaneous voiding trial Reinserted the catheter Bowels are moving No falls 01/07/2023: Much improved DC cath today hopefully able to void No pain reported BM + 01/06/2023: Patient doing well Participation is good Pardo catheter still in place Bowels are moving Pain is controlled 01/05/2023: Patient doing a lot better Upright in chair Moving legs and arms 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 Labs reviewed Review of Systems General: Fatigue, Malaise Objective Exam Vital Signs Vital Signs Date Time Temp Pulse Resp B/P (MAP) Pulse Ox O2 Delivery O2 Flow Rate FiO2 01/10/23 20:36 36.4 81 16 123/60 (81) 94 Room Air Capillary Refill : General Appearance: No Apparent Distress, WD/WN, Chronically ill, Obese HEENT: PERRL/EOMI, Normal ENT Inspection, Pharynx Normal Neck: Full Range of Motion, Normal Inspection, Non Tender, Supple, Carotid Bruit Respiratory: Chest Non Tender, Lungs Clear, Normal Breath Sounds, No Accessory Muscle Use, No Respiratory Distress Cardiovascular: Regular Rate, Rhythm, No Edema, No Gallop, No JVD, No Murmur, Normal Peripheral Pulses Gastrointestinal: Normal Bowel Sounds, No Organomegaly, No Pulsatile Mass, Non Tender, Soft Back: Normal Inspection, No CVA Tenderness, No Vertebral Tenderness Extremity: Normal Capillary Refill, Normal Inspection, Normal Range of Motion, Non Tender, No Calf Tenderness, No Pedal Edema Neurologic/Psychiatric: Alert, Oriented x3, No Motor/Sensory Deficits, 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 FIM Transfers Therapy Code Descriptions/Definitions Functional [place] Measure: 0=Not Assessed/NA 4=Minimal Assistance 1=Total Assistance 5=Supervision or Setup 2=Maximal Assistance 6=Modified [place] 3=Moderate Assistance 7=Complete IndependenceSCALE: Activities may be completed with or without assistive devices. 7-Milgtxvpht-sujwwaz completes the activity by him/herself with no assistance from a helper. 5-Set-up or Clean-up Assistance-helper sets up or cleans up; patient completes activity. [place] assists only prior to or following the activity. 4-Supervision or Touching Assistance-helper provides verbal cues and/or touching/steadying and/or contact guard assistance as patient completes ac tivity. Assistance may be provided throughout the activity or intermittently. 3-Partial/Moderate Assistance-helper does LESS THAN HALF the effort. [place] lifts, holds or supports trunk or limbs, but provides less than half the effort. 2-Substantial/Maximal Assistance-helper does MORE THAN HALF the effort. [place] lifts or holds trunk or limbs and provides more than half the effort. 1-Ipjxhnosd-qervoc does ALL the effort. Patient does none of the effort to complete the activity. Or, the assistance of 2 or more helpers is required for the patient to complete the activity. If activity was not attempted, code reason: 7-Patient Refused. 9-Not Applicable-not attempted and the patient did not perform the activity before the current illness, exacerbation or injury. 10-Not Attempted due to Environmental Limitations-(lack of equipment, weather restraints, etc.). 88-Not Attempted due to Medical Conditions or Safety Concerns. Roll Left to Right (QC): 3 (Min (A) /c cues and bed rail use) Sit to Lying (QC): 1 (hard max (A) of 2 for supine>sit) Sit to Stand (QC): 3 (Alfie to FWW. CGA in (II)) Chair/Axa-sz-Gaefk Xfer(QC): 3 (Scoot/squat pivot bed>w/c, min (A) of 1 and blocking of patient's feet.) Car Transfer (QC): 88 Gait Training Does the Patient Walk?: Yes Distance: 7' x 3 in // bars Walk 10 feet (QC): 3 (Alfie for L knee buckling and max cues) Walk 50 ft with 2 Turns(QC): 88 Walk 150 ft (QC): 88 Walking 10ft/uneven surface-QC: 88 Gait Persons Needed: 2 (for assist and w/c backup) Gait Assistive Device: Parallel Bars Wheelchair Training Does the Pt Use a Wheelchair?: Yes Distance: 170' Wheel 50 ft with 2 turns (QC): 4 (Vc's for LE use) Wheel 150 ft (QC): 4 (Vc's for LE use) Type of Wheelchair: Manual Stair Training 1 Step (curb) (QC): 88 4 Steps (QC): 88 12 Steps (QC): 88 Balance Picking up an Object (QC): 88 ADL-Treatment Eating (QC): 6 (IND per pt report) Oral Hygiene (QC): 6 Shower/Bathe Self (QC): 3 Upper Body Dressing (QC): 5 Lower Body Dressing (QC): 3 On/Off Footwear (QC): 5 Toileting Hygiene (QC): 1 (Per RN, 2 person required) Toilet Transfer (QC): 1 (Per RN, 2 person required) Assessment/Plan Assessment and Plan Assess & Plan/Chief Complaint Assessment: Cervical stenosis with post op myleopathy Urinary retention requiring in-dwelling catheter Post op constipation AF HTN HLP h/o Guillain [place] Plan: Pain control Monitor closely PT OT Catheter management Flomax 01/05/2023: Continue Pardo catheter Supportive care 01/06/2023: Supportive care Pardo cath DC on Monday Continue Flomax twice daily 01/07/2023: DC catheter Maintain Flomax Reinsert cath if can't void 01/08/2023: We will consult urology tomorrow 01/09/2023: Pardo cath Dr Maradiaga Monitor closely 01/10/2023: Appreciate urology Continue aggressive therapy (1) Cervical myelopathy RADHA SEVERINO DO Jan 10, 2023 08:14
[2023-01-10] MEDS: SAVAYSA 60 MG PO SCH (08:15)
[2023-01-10] MEDS: DOCUSATE SODIUM 100 MG CAPSULE PO SCH ×2 (08:15→21:23)
[2023-01-10] MEDS: TAMSULOSIN 0.4 MG (FLOMAX) CAP PO SCH ×2 (08:15→21:21)
[2023-01-10] MEDS: SENNA W/DOCUSATE TABLET PO SCH ×2 (10:02→21:21)
--- NOTE | 2023-01-10 11:01 | Occupational Ther Daily Note ---
OT Current Status-Daily Note Subjective Pt alert, lying in bed. Pt agrees to therapy. No c/o pain at this time. Mental Status/Objective Patient Orientation: Person, Place, Time, Situation ADL-Treatment Pt agrees to shower. Independent using bed rails and HOB slightly elevated for supine to EOB. CGA for sit to stand from higher surface. Min A for SPT using FWW from EOB to w/c. Pt able to propel w/c into bathroom independently. Min A for shower transfers. Sitting 90% of the time on shower bench, pt able to reach all areas except buttocks using grabbars, hand held shower and LH sponge then standing while stabilizing using grabbars assist given to cleanse buttocks. Set up for UBD. Pt educated on threading la through pants. Pt able to thread feet through pant legs then mod A to stabilize while pt uses L UE to stabilize self and R UE to hike pants over hips. Pt educated on using AE for footwear, continues to need assistance to complete. Therapy Code Descriptions/Definitions Functional [place] Measure: 0=Not Assessed/NA 4=Minimal Assistance 1=Total Assistance 5=Supervision or Setup 2=Maximal Assistance 6=Modified [place] 3=Moderate Assistance 7=Complete IndependenceSCALE: Activities may be completed with or without assistive devices. 6-Umdyjjfvqx-uaoxuvy completes the activity by him/herself with no assistance from a helper. 5-Set-up or Clean-up Assistance-helper sets up or cleans up; patient completes activity. [place] assists only prior to or following the activity. 4-Supervision or Touching Assistance-helper provides verbal cues and/or touching/steadying and/or contact guard assistance as patient completes activity. Assistance may be provided throughout the activity or intermittently. 3-Partial/Moderate Assistance-helper does LESS THAN HALF the effort. [place] lifts, holds or supports trunk or limbs, but provides less than half the effort. 2-Substantial/Maximal Assistance-helper does MORE THAN HALF the effort. [place] lifts or holds trunk or limbs and provides more than half the effort. 3-Ogvrygbtb-rcared does ALL the effort. Patient does none of the effort to complete the activity. Or, the assistance of 2 or more helpers is required for the patient to complete the activity. If activity was not attempted, code reason: 7-Patient Refused. 9-Not Applicable-not attempted and the patient did not perform the activity before the current illness, exacerbation or injury. 10-Not Attempted due to Environmental Limitations-(lack of equipment, weather restraints, etc.). 88-Not Attempted due to Medical Conditions or Safety Concerns. Shower/Bathe Self (QC): 3 Upper Body Dressing (QC): 5 Lower Body Dressing (QC): 2 (mod A) On/Off Footwear: 2 Other Treatment Pt. completed B UE seated exercises using strong resistance theraband 6 exercises 1 set of 10 reps to increase strength for daily functional tasks. Completed arm bike for 15 mins with 15 watt resistance going forward/backwards with no rest breaks. Skilled instruction for correct technique and modifications when needed. Pt. completed dynamic sitting activity to increase strength and endurance. Pt. IND with propelling self from room to/from therapy gym. After session, pt in w/c with present in room with call light and phone in reach and all needs met. OT Alf Goals Alf Goals Time Frame: Jan 27, 2023 Acute change in mental status: 0 Inattention: 0 Disorganized thinkin Altered level of consciousness: 0 Eating (QC): 6 Oral Hygiene (QC): 6 Toileting Hygiene (QC): 4 Shower/Bathe Self (QC): 4 Upper Body Dressing (QC): 5 Lower Body Dressing (QC): 4 On/Off Footwear (QC): 5 Additional Goals: 1-Demonstrate ADL Tasks, 2-Verbalize Understanding, 3- ImproveStrength/[place] 1=Demonstrate adherence to instructed precautions during ADL tasks. 2=Patient will verbalize/demonstrate understanding of assistive devices/modifications for ADL. 3=Patient will improve strength/tolerance for activity to enable patient to perform ADL's. OT Education/Plan Problem List/Assessment Assessment: Decreased Activ Tolerance, Decreased UE Strength, Impaired Bed Mobility, Impaired Funct Balance, Impaired Self-Care Skills Discharge Recommendations Plan/Recommendations: Continue POC Treatment Plan/Plan of Care Patient would benefit from OT for education, treatment and training to promote independence in ADL's, mobility, safety and/or upper extremity function for ADL's. Plan of Care: ADL Retraining, Functional Mobility, Group Exercise/Act as Ind, UE Funct Exercise/Act, UE Neuromus Re-Ed/Coord Treatment Duration: Jan 27, 2023 Frequency: At least 5 of 7 days/Wk (IRF) Estimated Hrs Per Day: 1.5 hours per day Agreement: Yes Rehab Potential: Fair Time Start Time: 09:00 Stop Time: 10:30 DATE: Jan 10, 2023 Total Time Billed (hr/min): 90 Billed Treatment Time 1 visit-ADL 3 (45 min) EX 2 (30 min) FA 1 (15 min) ANNA KAY Jan 10, 2023 11:00
--- NOTE | 2023-01-10 12:52 | Progress Note ---
Progress Note The patient l was seen in his room. He states that his strength is improving in his legs. Physical exam: Pardo catheter in place draining clear yellow urine. Normal circumcised phallus. Testes bilaterally descended without masses. Digital rectal exam: Normal sphincter tone. Prostate 40 g and benign. Assessment and plan: Urinary retention most likely due to neurogenic etiology from recent back surgery. Patient was started on Urecholine yesterday. I think it may just take a few weeks for his bladder function to return. I would continue the Urecholine and possibly remove his Pardo catheter in 2 to 3 days again and another attempt at voiding. We also discussed possibly clean intermittent catheterization. Jaz BECKER MD Jan 10, 2023 12:51
--- NOTE | 2023-01-10 16:32 | Physical Therapy Daily Note ---
PT Daily Note-Current Subjective Pt presents sitting in W/C with present. Pt states he "feels like he might need to pee" so he wants to discuss with Dr about possible removal of catheter. Pt states he has "tingling" in (L) hip-nursing staff notified. Pt agreeable to tx. Pain Section J - Health Conditions 1. Rarely or not at all 2. Occasionally 3. Frequently 4. Almost constantly 8. Unable to answer Pain Effect on Sleep: 1 Pain Interference with Therapy: 1 Pain Interference w/Day-to-Day: 1 Mental Status Patient Orientation: Person, Place, Time, Situation Attachments: Pardo Catheter Transfers SCALE: Activities may be completed with or without assistive devices. 6-Eugbjbvrif-btzlzba completes the activity by him/herself with no assistance from a helper. 5-Set-up or Clean-up Assistance-helper sets up or cleans up; patient completes activity. [place] assists only prior to or following the activity. 4-Supervision or Touching Assistance-helper provides verbal cues and/or touching/steadying and/or contact guard assistance as patient completes activity. Assistance may be provided throughout the activity or intermittently. 3-Partial/Moderate Assistance-helper does LESS THAN HALF the effort. [place] lifts, holds or supports trunk or limbs, but provides less than half the effort. 2-Substantial/Maximal Assistance-helper does MORE THAN HALF the effort. [place] lifts or holds trunk or limbs and provides more than half the effort. 0-Zgtfjvyiv-vfrozj does ALL the effort. Patient does none of the effort to complete the activity. Or, the assistance of 2 or more helpers is required for the patient to complete the activity. If activity was not attempted, code reason: 7-Patient Refused. 9-Not Applicable-not attempted and the patient did not perform the activity before the current illness, exacerbation or injury. 10-Not Attempted due to Environmental Limitations-(lack of equipment, weather restraints, etc.). 88-Not Attempted due to Medical Conditions or Safety Concerns. Sit to Stand (QC): 3 (Alfie to CGA-depending on fatigue) Weight Bearing Right Lower Extremity: Right Full Weight Bearing Left Lower Extremity: Left Full Weight Bearing Wheelchair Training Does the Pt Use a Wheelchair?: Yes Wheel 50 ft with 2 turns (QC): 6 Wheel 150 ft (QC): 6 Type of Wheelchair: Manual Pt demonstrated W/C mobility x 80' + 160', Independently. Exercises Seated Therapy Exercises: Ankle pumps, Sit to stand, Long arc quads, Hip flexion, Hamstring Curls (blue ther band), Hip abd/add (blue ther band) Seated Reps: 20 Standing: Hip Abduction, Heel/toe raises, Marching Standing THER EX in (II) x 10reps x 2 sets each, CGA (Alfie for (L) knee buckling during (R) stance exercises) Treatments Pt demonstrated W/C from room<>PT gym x 80' + 160', Independently. Pt conducted seated and standing in (II) ther ex in PT gym. Post tx with pt in W/C, present in room, call light within reach and all needs met. Assessment Current Status: Good Progress Pt demonstrates lack of quad muscle recruitment for hip/knee extension. PT Pharmacologist Goals Pharmacologist Goals PT Chcf Goals Time Frame: Jan 25, 2023 Roll Left & Right (QC): 6 (/c bed rail) Sit to Lying (QC): 3 (min (A) 1) Lying-Sitting on Side/Bed(QC): 3 (min (A) 1) Sit to Stand (QC): 3 (mod (A) of 1) Chair/Ygm-ar-Snmuo Xfer(QC): 3 (mod (A) of 1 /c sliding board or stand pivot) Toilet Transfer (QC): 3 (mod (A) of 1) Car Transfer (QC): 3 (Mod (A) ) Does the Patient Walk: No and Walking Goal IS indicated Walk 10 feet (QC): 1 ((A) of 2 /c FWW) Walk 50ft with 2 Turns (QC): 1 ((A) of 2 /c FWW) Walk 150 ft (QC): 9 (max distance prior to surgery was 100' due to (B) knee and back pain) Walking 10ft on Uneven Surface: 1 ((A) of 2 /c FWW) 1 Step (curb) (QC): 1 ((A) of 2 with rails or FWW) 4 Steps (QC): 88 12 Steps (QC): 88 Picking up an Object (QC): 3 (mod (A) with walker and professor of sport management) Does the Pt use WC or Scooter?: Yes Wheel 50 feet with 2 turns (QC: 6 Type: Manual Wheel 150 feet: 6 PT Plan Problem List Problem List: Activity Tolerance, Functional Strength, Safety, Balance, Gait Treatment/Plan Treatment Plan: Continue Plan of Care Treatment Plan: Bed Mobility, Education, Functional Activity Rahel, Functional Strength, Gait, Safety, Therapeutic Exercise, Transfers Treatment Duration: Jan 25, 2023 Frequency: At least 5 of 7 days/Wk (IRF) Estimated Hrs Per Day: 1.5 hours per day Patient and/or Family Agrees t: Yes Safety Risks/Education Patient Education: Safety Issues Teaching Recipient: Patient, Significant Other Teaching Methods: Discussion Response to Teaching: Verbalize Understanding Discharge Recommendations Plan Continue with tx per pt POC. Will start amb with FWW (outside of parallel bars) as circumstances allow. Time Time In: 1045 Time Out: 1215 DATE: Jan 10, 2023 Total Billed Treatment Time: 90 Total Billed Treatment 1, EX4 (60m), NM (15m), WC (15m) HERBERT REYES SHOT PACKER Jan 10, 2023 16:32
[2023-01-10 17:00] VITALS: BP 135/65
[2023-01-10 20:36] VITALS: BP 123/60
--- NOTE | 2023-01-11 05:40 | PM&R Progress Note ---
Subjective HPI/CC On Admission Date Seen by Provider: Jan 11, 2023 Time Seen by Provider: 13:00 Subjective/Events-last exam 01/11/2023: Patient doing a lot better Working with therapy Will discontinue catheter in the next day or 2 Conferred with urology 01/10/2023: Patient doing a lot better Denies any new problems Reviewed meds and labs Transferring with walker pretty well 01/09/2023: Doing better Dr Maradiaga will see him due to continued urinary retention Pain controlled No falls 01/08/2023: Patient failed spontaneous voiding trial Reinserted the catheter Bowels are moving No falls 01/07/2023: Much improved DC cath today hopefully able to void No pain reported BM + 01/06/2023: Patient doing well Participation is good Pardo catheter still in place Bowels are moving Pain is controlled 01/05/2023: Patient doing a lot better Upright in chair Moving legs and arms 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 Labs reviewed Review of Systems General: Fatigue, Malaise Objective Exam Vital Signs Vital Signs Date Time Temp Pulse Resp B/P (MAP) Pulse Ox O2 Delivery O2 Flow Rate FiO2 01/11/23 10:42 Room Air 01/11/23 08:47 77 133/60 (84) 01/11/23 08:00 36.4 17 95 Capillary Refill : General Appearance: No Apparent Distress, WD/WN, Chronically ill, Obese HEENT: PERRL/EOMI, Normal ENT Inspection, Pharynx Normal Neck: Full Range of Motion, Normal Inspection, Non Tender, Supple, Carotid Bruit Respiratory: Chest Non Tender, Lungs Clear, Normal Breath Sounds, No Accessory Muscle Use, No Respiratory Distress Cardiovascular: Regular Rate, Rhythm, No Edema, No Gallop, No JVD, No Murmur, Normal Peripheral Pulses Gastrointestinal: Normal Bowel Sounds, No Organomegaly, No Pulsatile Mass, Non Tender, Soft Back: Normal Inspection, No CVA Tenderness, No Vertebral Tenderness Extremity: Normal Capillary Refill, Normal Inspection, Normal Range of Motion, Non Tender, No Calf Tenderness, No Pedal Edema Neurologic/Psychiatric: Alert, Oriented x3, No Motor/Sensory Deficits, associate broker II- XII Norm as Tested, Abnormal Gait, Depressed Affect, Motor Weakness Skin: Normal Color, Warm/Dry Lymphatic: No Adenopathy Results/Procedures Lab Patient resulted labs reviewed. FIM Transfers Therapy Code Descriptions/Definitions Functional [place] Measure: 0=Not Assessed/NA 4=Minimal Assistance 1=Total Assistance 5=Supervision or Setup 2=Maximal Assistance 6=Modified [place] 3=Moderate Assistance 7=Complete IndependenceSCALE: Activities may be completed with or without assistive devices. 3-Fhcxskppcx-wqyvrip completes the activity by him/herself with no assistance fr om a helper. 5-Set-up or Clean-up Assistance-helper sets up or cleans up; patient completes activity. [place] assists only prior to or following the activity. 4-Supervision or Touching Assistance-helper provides verbal cues and/or touching/steadying and/or contact guard assistance as patient completes activity. Assistance may be provided throughout the activity or intermittently. 3-Partial/Moderate Assistance-helper does LESS THAN HALF the effort. [place] lifts, holds or supports trunk or limbs, but provides less than half the effort. 2-Substantial/Maximal Assistance-helper does MORE THAN HALF the effort. [place] lifts or holds trunk or limbs and provides more than half the effort. 5-Htuntabrk-fwdama does ALL the effort. Patient does none of the effort to complete the activity. Or, the assistance of 2 or more helpers is required for the patient to complete the activity. If activity was not attempted, code reason: 7-Patient Refused. 9-Not Applicable-not attempted and the patient did not perform the activity before the current illness, exacerbation or injury. 10-Not Attempted due to Environmental Limitations-(lack of equipment, weather restraints, etc.). 88-Not Attempted due to Medical Conditions or Safety Concerns. Roll Left to Right (QC): 3 (Min (A) /c cues and bed rail use) Sit to Lying (QC): 1 (hard max (A) of 2 for supine>sit) Sit to Stand (QC): 3 (Alfie to CGA-depending on fatigue) Chair/Giy-xm-Qmdbv Xfer(QC): 3 (Scoot/squat pivot bed>w/c, min (A) of 1 and blocking of patient's feet.) Car Transfer (QC): 88 Gait Training Does the Patient Walk?: Yes Distance: 7' x 3 in // bars Walk 10 feet (QC): 3 (Alfie for L knee buckling and max cues) Walk 50 ft with 2 Turns(QC): 88 Walk 150 ft (QC): 88 Walking 10ft/uneven surface-QC: 88 Gait Persons Needed: 2 (for assist and w/c backup) Gait Assistive Device: Parallel Bars Wheelchair Training Does the Pt Use a Wheelchair?: Yes Distance: 170' Wheel 50 ft with 2 turns (QC): 6 Wheel 150 ft (QC): 6 Type of Wheelchair: Manual Stair Training 1 Step (curb) (QC): 88 4 Steps (QC): 88 12 Steps (QC): 88 Balance Picking up an Object (QC): 88 ADL-Treatment Eating (QC): 6 (IND per pt report) Oral Hygiene (QC): 6 Shower/Bathe Self (QC): 3 Upper Body Dressing (QC): 5 Lower Body Dressing (QC): 2 (mod A) On/Off Footwear (QC): 2 Toileting Hygiene (QC): 1 (Per RN, 2 person required) Toilet Transfer (QC): 1 (Per RN, 2 person required) Assessment/Plan Assessment and Plan Assess & Plan/Chief Complaint Assessment: Cervical stenosis with post op myleopathy Urinary retention requiring in-dwelling catheter Post op constipation AF HTN HLP h/o Guillain [place] Plan: Pain control Monitor closely PT OT Catheter management Flomax 01/05/2023: Continue Pardo catheter Supportive care 01/06/2023: Supportive care Pardo cath DC on Monday Continue Flomax twice daily 01/07/2023: DC catheter Maintain Flomax Reinsert cath if can't void 01/08/2023: We will consult urology tomorrow 01/09/2023: Pardo cath Dr Maradiaga Monitor closely 01/10/2023: Appreciate urology Continue aggressive therapy 01/11/2023: Supportive care Continue Pardo catheter Appreciate urology (1) Cervical myelopathy RADHA SEVERINO DO Jan 11, 2023 05:40
[2023-01-11] MEDS: BETHANECHOL 10 MG TABLET PO SCH ×3 (06:29→20:31)
[2023-01-11] MEDS: carvediloL 6.25 MG TABLET PO SCH ×2 (06:30→18:15)
[2023-01-11] MEDS: FLECAINIDE 100 MG TABLET PO SCH ×2 (06:30→18:15)
[2023-01-11 08:00] VITALS: BP 99/57
[2023-01-11] MEDS: SAVAYSA 60 MG PO SCH (08:01)
[2023-01-11] MEDS: TAMSULOSIN 0.4 MG (FLOMAX) CAP PO SCH ×2 (08:01→20:30)
[2023-01-11] MEDS: DOCUSATE SODIUM 100 MG CAPSULE PO SCH ×2 (08:01→20:31)
[2023-01-11] MEDS: SENNA W/DOCUSATE TABLET PO SCH ×2 (08:02→20:30)
[2023-01-11 08:47] VITALS: BP 133/60
--- NOTE | 2023-01-11 10:33 | Occupational Ther Daily Note ---
OT Current Status-Daily Note Subjective Pt. alert laying in bed with present in room. No c/o pain at this time. Pt. agrees to therapy. PT/OT co-treat ([id number]), skills of 2 clinicians required to decrease fall risk, increase mobility and stamina for daily functional tasks. PT focusing on transfers, ambulation and B LE strengthening while OT focusing on functional mobility, assisting with skilled care during ambulation and B UE strengthening. Mental Status/Objective Patient Orientation: Person, Place, Time, Situation Attachments: Pardo Catheter ADL-Treatment Pt declines bathing/dressing this date. Therapy Code Descriptions/Definitions Functional [place] Measure: 0=Not Assessed/NA 4=Minimal Assistance 1=Total Assistance 5=Supervision or Setup 2=Maximal Assistance 6=Modified [place] 3=Moderate Assistance 7=Complete IndependenceSCALE: Activities may be completed with or without assistive devices. 6-Vbsloxvpuw-xekywjf completes the activity by him/herself with no assistance from a helper. 5-Set-up or Clean-up Assistance-helper sets up or cleans up; patient completes activity. [place] assists only prior to or following the activity. 4-Supervision or Touching Assistance-helper provides verbal cues and/or touching/steadying and/or contact guard assistance as patient completes activity. Assistance may be provided throughout the activity or intermittently. 3-Partial/Moderate Assistance-helper does LESS THAN HALF the effort. [place] lifts, holds or supports trunk or limbs, but provides less than half the effort. 2-Substantial/Maximal Assistance-helper does MORE THAN HALF the effort. [place] lifts or holds trunk or limbs and provides more than half the effort. 8-Fxnvllfhx-fpdmig does ALL the effort. Patient does none of the effort to complete the activity. Or, the assistance of 2 or more helpers is required for the patient to complete the activity. If activity was not attempted, code reason: 7-Patient Refused. 9-Not Applicable-not attempted and the patient did not perform the activity before the current illness, exacerbation or injury. 10-Not Attempted due to Environmental Limitations-(lack of equipment, weather restraints, etc.). 88-Not Attempted due to Medical Conditions or Safety Concerns. Other Treatment HOB slightly raised, pt able to go from supine to EOB using bed rails by self. CGA with sit to stands. CGA for squat pivot transfer from EOB to w/c x2. Pt propelled w/c from room to/from therapy gym. Completed arm bike for 15 mins with 15 watt resistance going forward/backwards with no rest breaks. Pt. completed dynamic sitting activity to increase strength and endurance. Pt. then ambulated forward/backwards in //bars 3x's with assist x2 for safety due to knee buckling. Pt. was able to ambulate using FWW with assist x2 completing distance of 32, 38, 60 ft with rest breaks in between. After session, pt left in PT with all needs met. OT Snf Goals Attacher Goals Time Frame: Jan 27, 2023 Acute change in mental status: 0 Inattention: 0 Disorganized thinkin Altered level of consciousness: 0 Eating (QC): 6 Oral Hygiene (QC): 6 Toileting Hygiene (QC): 4 Shower/Bathe Self (QC): 4 Upper Body Dressing (QC): 5 Lower Body Dressing (QC): 4 On/Off Footwear (QC): 5 Additional Goals: 1-Demonstrate ADL Tasks, 2-Verbalize Understanding, 3- ImproveStrength/Rahel 1=Demonstrate adherence to instructed precautions during ADL tasks. 2=Patient will verbalize/demonstrate understanding of assistive devices/modifications for ADL. 3=Patient will improve strength/tolerance for activity to enable patient to perform ADL's. OT Education/Plan Problem List/Assessment Assessment: Decreased Activ Tolerance, Decreased Safety Aware, Decreased UE Strength, Impaired Funct Balance, Impaired Self-Care Skills Discharge Recommendations Plan/Recommendations: Continue POC Treatment Plan/Plan of Care Patient would benefit from OT for education, treatment and training to promote independence in ADL's, mobility, safety and/or upper extremity function for ADL's. Plan of Care: ADL Retraining, Functional Mobility, Group Exercise/Act as Ind, UE Funct Exercise/Act, UE Neuromus Re-Ed/Coord Treatment Duration: Jan 27, 2023 Frequency: At least 5 of 7 days/Wk (IRF) Estimated Hrs Per Day: 1.5 hours per day Agreement: Yes Rehab Potential: Fair Time Start Time: 09:00 Stop Time: 10:30 DATE: Jan 11, 2023 Total Time Billed (hr/min): 75 Billed Treatment Time 1 visit- FA 43 (45 mins) EX 3 (45 mins) co-treat with PT [id number], individual [id number] ANNA KAY MADAN Jan 11, 2023 10:33
--- NOTE | 2023-01-11 12:12 | Physical Therapy Daily Note ---
PT Daily Note-Current Subjective Pt presents in PT gym with OT. Pt states he still has "tingling" in his L Hip, and states that "it happens when (his) knee jeanne". Pt agreeable to PT/OT partial cotx and PT tx. Pain Section J - Health Conditions 1. Rarely or not at all 2. Occasionally 3. Frequently 4. Almost constantly 8. Unable to answer Pain Effect on Sleep: 1 Pain Interference with Therapy: 1 Pain Interference w/Day-to-Day: 1 Mental Status Patient Orientation: Person, Place, Time, Situation Attachments: Pardo Catheter Transfers SCALE: Activities may be completed with or without assistive devices. 8-Rgsddxxybf-azdnmow completes the activity by him/herself with no assistance from a helper. 5-Set-up or Clean-up Assistance-helper sets up or cleans up; patient completes activity. [place] assists only prior to or following the activity. 4-Supervision or Touching Assistance-helper provides verbal cues and/or touching/steadying and/or contact guard assistance as patient completes activity. Assistance may be provided throughout the activity or intermittently. 3-Partial/Moderate Assistance-helper does LESS THAN HALF the effort. [place] lifts, holds or supports trunk or limbs, but provides less than half the effort. 2-Substantial/Maximal Assistance-helper does MORE THAN HALF the effort. [place] lifts or holds trunk or limbs and provides more than half the effort. 5-Brrdbimiu-nshwkg does ALL the effort. Patient does none of the effort to complete the activity. Or, the assistance of 2 or more helpers is required for the patient to complete the activity. If activity was not attempted, code reason: 7-Patient Refused. 9-Not Applicable-not attempted and the patient did not perform the activity before the current illness, exacerbation or injury. 10-Not Attempted due to Environmental Limitations-(lack of equipment, weather restraints, etc.). 88-Not Attempted due to Medical Conditions or Safety Concerns. Sit to Stand (QC): 4 (CGA for safety and steadying) Weight Bearing Right Lower Extremity: Right Full Weight Bearing Left Lower Extremity: Left Full Weight Bearing Gait Training Does the Patient Walk?: Yes Walk 10 feet (QC): 4 (CGA for safety and steadying) Walk 50 ft with 2 Turns(QC): 4 (CGA for safety and steadying) Walk 150 ft (QC): 88 Walking 10ft/uneven surface-QC: 88 Gait Persons Needed: 2 Gait Assistive Device: FWW W/C follow. Pt amb with FWW x 10', 32', 38', 60', with CGA x 2 for safety and steadying. Wheelchair Training Does the Pt Use a Wheelchair?: Yes Wheel 50 ft with 2 turns (QC): 6 Wheel 150 ft (QC): 6 Type of Wheelchair: Manual Pt demonstrated independent W/C mobility around ARU for UE strengthening. Exercises Seated Therapy Exercises: Long arc quads, Hamstring Curls, Hip abd/add Seated Reps: 15 Ther Ex conducted with Blue Ther Band. Seated Hip ADD /c pillow. Treatments OT/PT cotreat due to skill of 2 clinicians required which a clinical rehab specialist could not perform in order to coordinate UE/LEs, decrease fall risk, and focus on higher level balance tasks. OT focused on UE placement, cues for sequencing and safety, PT focused on LE placement, gross overall movement, transfers/mobility. Pt amb forward and backward in (II) x 3, CGA x 2 for safety and steadying, with W/C follow. Pt amb in hallway /c FWW, CGA x 2, W/C follow, and with multiple sit<>stand transfers. OT ended cotreatment. Pt demonstrated W/C mobility around ARU and back to room. Pt conducted seated ther ex with and without ther band, concentrating on eccentric/concentric control of quads for knee ext. Post tx with pt in W/C, and family in room, call light in reach and all needs met. Assessment Current Status: Good Progress Pt progressed from amb in (II) to hallway with FWW and CGA x 2 for safety. PT Converting Supervisor Goals Care Home Goals PT Care Home Goals Time Frame: Jan 25, 2023 Roll Left & Right (QC): 6 (/c bed rail) Sit to Lying (QC): 3 (min (A) 1) Lying-Sitting on Side/Bed(QC): 3 (min (A) 1) Sit to Stand (QC): 3 (mod (A) of 1) Chair/Xgq-sp-Pckae Xfer(QC): 3 (mod (A) of 1 /c sliding board or stand pivot) Toilet Transfer (QC): 3 (mod (A) of 1) Car Transfer (QC): 3 (Mod (A) ) Does the Patient Walk: No and Walking Goal IS indicated Walk 10 feet (QC): 1 ((A) of 2 /c FWW) Walk 50ft with 2 Turns (QC): 1 ((A) of 2 /c FWW) Walk 150 ft (QC): 9 (max distance prior to surgery was 100' due to (B) knee and back pain) Walking 10ft on Uneven Surface: 1 ((A) of 2 /c FWW) 1 Step (curb) (QC): 1 ((A) of 2 with rails or FWW) 4 Steps (QC): 88 12 Steps (QC): 88 Picking up an Object (QC): 3 (mod (A) with walker and irrigation manager) Does the Pt use WC or Scooter?: Yes Wheel 50 feet with 2 turns (QC: 6 Type: Manual Wheel 150 feet: 6 PT Plan Problem List Problem List: Activity Tolerance, Functional Strength, Balance Treatment/Plan Treatment Plan: Continue Plan of Care Treatment Plan: Bed Mobility, Education, Functional Activity Rahel, Functional Strength, Gait, Safety, Therapeutic Exercise, Transfers Treatment Duration: Jan 25, 2023 Frequency: At least 5 of 7 days/Wk (IRF) Estimated Hrs Per Day: 1.5 hours per day Patient and/or Family Agrees t: Yes Safety Risks/Education Patient Education: Gait Training, Safety Issues Teaching Recipient: Patient Teaching Methods: Demonstration, Discussion Response to Teaching: Verbalize Understanding Discharge Recommendations Plan Continue with tx per pt POC. Time Time In: 0945 Time Out: 1100 DATE: Jan 11, 2023 Total Billed Treatment Time: 75 Total Billed Treatment 1, GT4 (60m), EX (15m). CoTx with OT: ([id number]) (45m). HERBERT REYES [employer] REP Jan 11, 2023 12:12
--- NOTE | 2023-01-11 13:11 | Occupational Ther Daily Note ---
OT Current Status-Daily Note Subjective Pt alert, lying in bed. Pt agrees to therapy. No c/o pain. Mental Status/Objective Patient Orientation: Person, Place, Time, Situation ADL-Treatment Therapy Code Descriptions/Definitions Functional [place] Measure: 0=Not Assessed/NA 4=Minimal Assistance 1=Total Assistance 5=Supervision or Setup 2=Maximal Assistance 6=Modified [place] 3=Moderate Assistance 7=Complete IndependenceSCALE: Activities may be completed with or without assistive devices. 5-Qihcsyexvx-wisdxnr completes the activity by him/herself with no assistance from a helper. 5-Set-up or Clean-up Assistance-helper sets up or cleans up; patient completes activity. [employer] assists only prior to or following the activity. 4-Supervision or Touching Assistance-helper provides verbal cues and/or touching/steadying and/or contact guard assistance as patient completes activity. Assistance may be provided throughout the activity or intermittently. 3-Partial/Moderate Assistance-helper does LESS THAN HALF the effort. [employer] lifts, holds or supports trunk or limbs, but provides less than half the effort. 2-Substantial/Maximal Assistance-helper does MORE THAN HALF the effort. [employer] lifts or holds trunk or limbs and provides more than half the effort. 4-Clapnngmt-frhgxh does ALL the effort. Patient does none of the effort to complete the activity. Or, the assistance of 2 or more helpers is required for the patient to complete the activity. If activity was not attempted, code reason: 7-Patient Refused. 9-Not Applicable-not attempted and the patient did not perform the activity before the current illness, exacerbation or injury. 10-Not Attempted due to Environmental Limitations-(lack of equipment, weather restraints, etc.). 88-Not Attempted due to Medical Conditions or Safety Concerns. Other Treatment Pt completed B UE strengthening activity working on increasing strength, coordination and stamina. Pt able to use dowel sol and hit balloon back and forth with DAVILA for 2-5 min 3x's with recovery breaks b/t. After therapy, pt lying in bed with call light/phone in reach. All needs met in room. OT Conservation Engineer Goals Custodial Goals Time Frame: Jan 27, 2023 Acute change in mental status: 0 Inattention: 0 Disorganized thinkin Altered level of consciousness: 0 Eating (QC): 6 Oral Hygiene (QC): 6 Toileting Hygiene (QC): 4 Shower/Bathe Self (QC): 4 Upper Body Dressing (QC): 5 Lower Body Dressing (QC): 4 On/Off Footwear (QC): 5 Additional Goals: 1-Demonstrate ADL Tasks, 2-Verbalize Understanding, 3-ImproveStrength/[place] 1=Demonstrate adherence to instructed precautions during ADL tasks. 2=Patient will verbalize/demonstrate understanding of assistive devices/modifications for ADL. 3=Patient will improve strength/tolerance for activity to enable patient to perform ADL's. OT Education/Plan Problem List/Assessment Assessment: Decreased Activ Tolerance, Decreased UE Strength Discharge Recommendations Plan/Recommendations: Continue POC Treatment Plan/Plan of Care Patient would benefit from OT for education, treatment and training to promote i ndependence in ADL's, mobility, safety and/or upper extremity function for ADL's. Plan of Care: ADL Retraining, Functional Mobility, Group Exercise/Act as Ind, UE Funct Exercise/Act, UE Neuromus Re-Ed/Coord Treatment Duration: Jan 27, 2023 Frequency: At least 5 of 7 days/Wk (IRF) Estimated Hrs Per Day: 1.5 hours per day Agreement: Yes Rehab Potential: Fair Time Start Time: 12:45 Stop Time: 13:00 DATE: Jan 11, 2023 Total Time Billed (hr/min): 15 Billed Treatment Time 1 visit-EX 1 (15 min) ANNA KAY Jan 11, 2023 13:11
[2023-01-11 18:19] VITALS: BP 149/67
[2023-01-11 20:30] VITALS: BP 138/61
--- NOTE | 2023-01-12 05:34 | PM&R Progress Note ---
Subjective HPI/CC On Admission Date Seen by Provider: Jan 12, 2023 Time Seen by Provider: 10:00 Subjective/Events-last exam 01/12/2023: Overall doing well Pardo still in place Reviewed meds No falls 01/11/2023: Patient doing a lot better Working with therapy Will discontinue catheter in the next day or 2 Conferred with urology 01/10/2023: Patient doing a lot better Denies any new problems Reviewed meds and labs Transferring with walker pretty well 01/09/2023: Doing better Dr Maradiaga will see him due to continued urinary retention Pain controlled No falls 01/08/2023: Patient failed spontaneous voiding trial Reinserted the catheter Bowels are moving No falls 01/07/2023: Much improved DC cath today hopefully able to void No pain reported BM + 01/06/2023: Patient doing well Participation is good Pardo catheter still in place Bowels are moving Pain is controlled 01/05/2023: Patient doing a lot better Upright in chair Moving legs and arms 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 Labs reviewed Review of Systems General: Fatigue, Malaise Objective Exam Vital Signs Vital Signs Date Time Temp Pulse Resp B/P (MAP) Pulse Ox O2 Delivery O2 Flow Rate FiO2 01/12/23 09:00 Room Air 01/12/23 08:12 36.1 77 18 93/50 (64) 96 Capillary Refill : General Appearance: No Apparent Distress, WD/WN, Chronically ill, Obese HEENT: PERRL/EOMI, Normal ENT Inspection, Pharynx Normal Neck: Full Range of Motion, Normal Inspection, Non Tender, Supple, Carotid Bruit Respiratory: Chest Non Tender, Lungs Clear, Normal Breath Sounds, No Accessory Muscle Use, No Respiratory Distress Cardiovascular: Regular Rate, Rhythm, No Edema, No Gallop, No JVD, No Murmur, Normal Peripheral Pulses Gastrointestinal: Normal Bowel Sounds, No Organomegaly, No Pulsatile Mass, Non Tender, Soft Back: Normal Inspection, No CVA Tenderness, No Vertebral Tenderness Extremity: Normal Capillary Refill, Normal Inspection, Normal Range of Motion, Non Tender, No Calf Tenderness, No Pedal Edema Neurologic/Psychiatric: Alert, Oriented x3, No Motor/Sensory Deficits, fish filleter II- XII Norm as Tested, Abnormal Gait, Depressed Affect, Motor Weakness Skin: Normal Color, Warm/Dry Lymphatic: No Adenopathy Results/Procedures Lab Patient resulted labs reviewed. FIM Transfers Therapy Code Descriptions/Definitions Functional [place] Measure: 0=Not Assessed/NA 4=Minimal Assistance 1=Total Assistance 5=Supervision or Setup 2=Maximal Assistance 6=Modified [place] 3=Moderate Assistance 7=Complete IndependenceSCALE: Activities may be completed with or without assistive devices. 8-Jfsqebqzht-qfjqklp completes the activity by him/herself with no assistance from a helper. 5-Set-up or Clean-up Assistance-helper sets up or cleans up; patient completes activity. [place] assists only prior to or following the activity. 4-Supervision or Touching Assistance-helper provides verbal cues and/or touching/steadying and/or contact guard assistance as patient completes activity. Assistance may be provided throughout the activity or intermittently. 3-Partial/Moderate Assistance-helper does LESS THAN HALF the effort. [place] lifts, holds or supports trunk or limbs, but provides less than half the effort. 2-Substantial/Maximal Assistance-helper does MORE THAN HALF the effort. [place] lifts or holds trunk or limbs and provides more than half the effort. 0-Anrmvafxx-buorsd does ALL the effort. Patient does none of the effort to complete the activity. Or, the assistance of 2 or more helpers is required for the patient to complete the activity. If activity was not attempted, code reason: 7-Patient Refused. 9-Not Applicable-not attempted and the patient did not perform the activity before the current illness, exacerbation or injury. 10-Not Attempted due to Environmental Limitations-(lack of equipment, weather restraints, etc.). 88-Not Attempted due to Medical Conditions or Safety Concerns. Roll Left to Right (QC): 3 (Min (A) /c cues and bed rail use) Sit to Lying (QC): 1 (hard max (A) of 2 for supine>sit) Sit to Stand (QC): 4 (CGA for safety and steadying) Chair/Wzs-gs-Emeqq Xfer(QC): 3 (Scoot/squat pivot bed>w/c, min (A) of 1 and blocking of patient's feet.) Car Transfer (QC): 88 Gait Training Does the Patient Walk?: Yes Distance: 7' x 3 in // bars Walk 10 feet (QC): 4 (CGA for safety and steadying) Walk 50 ft with 2 Turns(QC): 4 (CGA for safety and steadying) Walk 150 ft (QC): 88 Walking 10ft/uneven surface-QC: 88 Gait Persons Needed: 2 Gait Assistive Device: FWW Wheelchair Training Does the Pt Use a Wheelchair?: Yes Distance: 170' Wheel 50 ft with 2 turns (QC): 6 Wheel 150 ft (QC): 6 Type of Wheelchair: Manual Stair Training 1 Step (curb) (QC): 88 4 Steps (QC): 88 12 Steps (QC): 88 Balance Picking up an Object (QC): 88 ADL-Treatment Eating (QC): 6 (IND per pt report) Oral Hygiene (QC): 6 Shower/Bathe Self (QC): 3 Upper Body Dressing (QC): 5 Lower Body Dressing (QC): 2 (mod A) On/Off Footwear (QC): 2 Toileting Hygiene (QC): 1 (Per RN, 2 person required) Toilet Transfer (QC): 1 (Per RN, 2 person required) Assessment/Plan Assessment and Plan Assess & Plan/Chief Complaint Assessment: Cervical stenosis with post op myleopathy Urinary retention requiring in-dwelling catheter Post op constipation AF HTN HLP h/o Guillain [place] Plan: Pain control Monitor closely PT OT Catheter management Flomax 01/05/2023: Continue Pardo catheter Supportive care 01/06/2023: Supportive care Pardo cath DC on Monday Continue Flomax twice daily 01/07/2023: DC catheter Maintain Flomax Reinsert cath if can't void 01/08/2023: We will consult urology tomorrow 01/09/2023: Pardo cath Dr Maradiaga Monitor closely 01/10/2023: Appreciate urology Continue aggressive therapy 01/11/2023: Supportive care Continue Pardo catheter Appreciate urology 01/12/2023: Monitor closely Pardo cath management by Dr Maradiaga (1) Cervical myelopathy RADHA SEVERINO DO Jan 12, 2023 05:34
[2023-01-12 06:48] VITALS: BP 121/57
[2023-01-12] MEDS: FLECAINIDE 100 MG TABLET PO SCH ×2 (06:48→18:06)
[2023-01-12] MEDS: carvediloL 6.25 MG TABLET PO SCH ×2 (06:48→18:06)
[2023-01-12] MEDS: BETHANECHOL 10 MG TABLET PO SCH ×3 (06:48→21:56)
--- NOTE | 2023-01-12 07:44 | Occupational Ther Daily Note ---
OT Current Status-Daily Note Subjective Pt alert, lying in bed. Pt agrees to therapy. No c/o pain. Mental Status/Objective Patient Orientation: Person, Place, Time, Situation Attachments: Pardo Catheter ADL-Treatment Supine to EOB with HOB raised and using bed rail, independent. Dons L sock on by self with leg resting on bed then assist for R sock. Pt states that he does not want to use sock aide, that his will help him. Min A for sit <--> stand with higher surface due to just getting up from sleeping. Propels w/c to bathroom independently. Independent with oral care and grooming. Completes upper body bathing independently. Independent with UBD. After therapy, pt sitting in recliner with call light/phone in reach. All needs met in room. Therapy Code Descriptions/Definitions Functional [place] Measure: 0=Not Assessed/NA 4=Minimal Assistance 1=Total Assistance 5=Supervision or Setup 2=Maximal Assistance 6=Modified [place] 3=Moderate Assistance 7=Complete IndependenceSCALE: Activities may be completed with or without assistive devices. 1-Dmquypapgq-jxdgzdz completes the activity by him/herself with no assistance from a helper. 5-Set-up or Clean-up Assistance-helper sets up or cleans up; patient completes activity. [place] assists only prior to or following the activity. 4-Supervision or Touching Assistance-helper provides verbal cues and/or touching/steadying and/or contact guard assistance as patient completes activity. Assistance may be provided throughout the activity or intermittently. 3-Partial/Moderate Assistance-helper does LESS THAN HALF the effort. [place] lifts, holds or supports trunk or limbs, but provides less than half the effort. 2-Substantial/Maximal Assistance-helper does MORE THAN HALF the effort. [place] lifts or holds trunk or limbs and provides more than half the effort. 9-Ocpdxfzbx-xtvfgh does ALL the effort. Patient does none of the effort to complete the activity. Or, the assistance of 2 or more helpers is required for the patient to complete the activity. If activity was not attempted, code reason: 7-Patient Refused. 9-Not Applicable-not attempted and the patient did not perform the activity before the current illness, exacerbation or injury. 10-Not Attempted due to Environmental Limitations-(lack of equipment, weather restraints, etc.). 88-Not Attempted due to Medical Conditions or Safety Concerns. Oral Hygiene (QC): 6 Upper Body Dressing (QC): 5 On/Off Footwear: 3 (mod A) Other Treatment Pt completed dynamic balance at //bars, alternating lifting UE 20'x and standing without support (close SBA) and not holding onto surface for 45 secs (no LOB). OT Medication Manager Goals [facility] Goals Time Frame: Jan 27, 2023 Acute change in mental status: 0 Inattention: 0 Disorganized thinkin Altered level of consciousness: 0 Eating (QC): 6 Oral Hygiene (QC): 6 Toileting Hygiene (QC): 4 Shower/Bathe Self (QC): 4 Upper Body Dressing (QC): 5 Lower Body Dressing (QC): 4 On/Off Footwear (QC): 5 Additional Goals: 1-Demonstrate ADL Tasks, 2-Verbalize Understanding, 3- ImproveStrength/Rahel 1=Demonstrate adherence to instructed precautions during ADL tasks. 2=Patient will verbalize/demonstrate understanding of assistive devices/modific ations for ADL. 3=Patient will improve strength/tolerance for activity to enable patient to perform ADL's. OT Education/Plan Problem List/Assessment Assessment: Decreased UE Strength, Impaired Funct Balance, Impaired Self-Care Skills Discharge Recommendations Plan/Recommendations: Continue POC Treatment Plan/Plan of Care Patient would benefit from OT for education, treatment and training to promote independence in ADL's, mobility, safety and/or upper extremity function for ADL's. Plan of Care: ADL Retraining, Functional Mobility, Group Exercise/Act as Ind, UE Funct Exercise/Act, UE Neuromus Re-Ed/Coord Treatment Duration: Jan 27, 2023 Frequency: At least 5 of 7 days/Wk (IRF) Estimated Hrs Per Day: 1.5 hours per day Agreement: Yes Rehab Potential: Fair Time Start Time: 07:30 Stop Time: 08:00 DATE: Jan 12, 2023 Total Time Billed (hr/min): 30 Billed Treatment Time 1 visit-ADL 1 (20 min) FA 1 (10 min) ANNA KAY Jan 12, 2023 07:44
[2023-01-12 08:12] VITALS: BP 93/50
[2023-01-12] MEDS: DOCUSATE SODIUM 100 MG CAPSULE PO SCH ×2 (08:19→21:57)
[2023-01-12] MEDS: SENNA W/DOCUSATE TABLET PO SCH ×2 (08:19→21:56)
[2023-01-12] MEDS: TAMSULOSIN 0.4 MG (FLOMAX) CAP PO SCH ×2 (08:19→21:56)
[2023-01-12] MEDS: SAVAYSA 60 MG PO SCH (08:20)
--- NOTE | 2023-01-12 08:57 | Physical Therapy Daily Note ---
PT Daily Note-Current Subjective Pt presents sitting in W/C in room. Pt denies pain and is agreeable to PT tx. Pt states his "tingling" in (B) LE is "lower" only in ankles/toes. Pain Section J - Health Conditions 1. Rarely or not at all 2. Occasionally 3. Frequently 4. Almost constantly 8. Unable to answer Pain Effect on Sleep: 1 Pain Interference with Therapy: 1 Pain Interference w/Day-to-Day: 1 Mental Status Patient Orientation: Person, Place, Time, Situation Transfers SCALE: Activities may be completed with or without assistive devices. 3-Oweijkclcq-nflilmw completes the activity by him/herself with no assistance from a helper. 5-Set-up or Clean-up Assistance-helper sets up or cleans up; patient completes activity. [place] assists only prior to or following the activity. 4-Supervision or Touching Assistance-helper provides verbal cues and/or touching/steadying and/or contact guard assistance as patient completes activity. Assistance may be provided throughout the activity or intermittently. 3-Partial/Moderate Assistance-helper does LESS THAN HALF the effort. [place] lifts, holds or supports trunk or limbs, but provides less than half the effort. 2-Substantial/Maximal Assistance-helper does MORE THAN HALF the effort. [place] lifts or holds trunk or limbs and provides more than half the effort. 2-Yyinfyzqn-fndfxd does ALL the effort. Patient does none of the effort to complete the activity. Or, the assistance of 2 or more helpers is required for the patient to complete the activity. If activity was not attempted, code reason: 7-Patient Refused. 9-Not Applicable-not attempted and the patient did not perform the activity before the current illness, exacerbation or injury. 10-Not Attempted due to Environmental Limitations-(lack of equipment, weather restraints, etc.). 88-Not Attempted due to Medical Conditions or Safety Concerns. Sit to Stand (QC): 4 (CGA) Weight Bearing Right Lower Extremity: Right Full Weight Bearing Left Lower Extremity: Left Full Weight Bearing Wheelchair Training Does the Pt Use a Wheelchair?: Yes Wheel 50 ft with 2 turns (QC): 6 Type of Wheelchair: Manual Pt demonstrated W/C mobility ~60' from room<>PT gym, Independently. Exercises Standing: Hip Abduction, Heel/toe raises, Sit to Stand Standing Reps: 10 THER EX: Standing toe touch /c (B) LE hip flex, hip ABD x 10 reps each. Treatments Pt demonstrated W/C mobility ~60' x 2 from room<>PT gym, Independently. Pt conducted standing ther ex in PT gym with CGA for safety and steadying. Post tx with pt back in room sitting in W/C, call light within reach and all needs met. Assessment Current Status: Good Progress Pt lacks quad and HS strength in (B) LE for hip/knee extension and functional mobility. Pt sit<>stand improving with only CGA required. PT Halfway Goals Bowling Ball Mold Assembler Goals PT Bowling Ball Mold Assembler Goals Time Frame: Jan 25, 2023 Roll Left & Right (QC): 6 (/c bed rail) Sit to Lying (QC): 3 (min (A) 1) Lying-Sitting on Side/Bed(QC): 3 (min (A) 1) Sit to Stand (QC): 3 (mod (A) of 1) Chair/Uvk-fy-Uzism Xfer(QC): 3 (mod (A) of 1 /c sliding board or stand pivot) Toilet Transfer (QC): 3 (mod (A) of 1) Car Transfer (QC): 3 (Mod (A) ) Does the Patient Walk: No and Walking Goal IS indicated Walk 10 feet (QC): 1 ((A) of 2 /c FWW) Walk 50ft with 2 Turns (QC): 1 ((A) of 2 /c FWW) Walk 150 ft (QC): 9 (max distance prior to surgery was 100' due to (B) knee and back pain) Walking 10ft on Uneven Surface: 1 ((A) of 2 /c FWW) 1 Step (curb) (QC): 1 ((A) of 2 with rails or FWW) 4 Steps (QC): 88 12 Steps (QC): 88 Picking up an Object (QC): 3 (mod (A) with walker and strategic planner) Does the Pt use WC or Scooter?: Yes Wheel 50 feet with 2 turns (QC: 6 Type: Manual Wheel 150 feet: 6 PT Plan Problem List Problem List: Activity Tolerance, Functional Strength, Safety Treatment/Plan Treatment Plan: Continue Plan of Care Treatment Plan: Bed Mobility, Education, Functional Activity Rahel, Functional Strength, Gait, Safety, Therapeutic Exercise, Transfers Treatment Duration: Jan 25, 2023 Frequency: At least 5 of 7 days/Wk (IRF) Estimated Hrs Per Day: 1.5 hours per day Patient and/or Family Agrees t: Yes Safety Risks/Education Patient Education: Gait Training, Correct Positioning, Safety Issues Teaching Recipient: Patient Teaching Methods: Discussion Response to Teaching: Verbalize Understanding Discharge Recommendations Plan Continue with tx per pt POC. Time Time In: 0830 Time Out: 0900 DATE: Jan 12, 2023 Total Billed Treatment Time: 30 Total Billed Treatment 1, EX2 (30m) HERBERT [place] ENGINEER Jan 12, 2023 08:57
--- NOTE | 2023-01-12 11:44 | Therapy Group Daily Note ---
Therapy Daily Group Note Patient Education Topic Exercises Exercises Fine Motor, UE Exercise Session Ratio (pt:therapist): 3:1 Goal of Session: UE/LE Strengthing Goal Met for this Session: Yes Pt Benefit of Group: Contributions to Others, Increased Functional Strength, Recognition of Peers, Socialization Other/Notes Pt propelled self in w/c to group. Group consisted of introductions, socialization, Thanksgiving trivia and B UE exercises for gross/fine motor strengthening and coordination. Pt introduced self appropriately and actively listened to peers. Pt participated in multiple B UE exercises with skilled instruction for correct technique and modifications when needed. Pt participated in trivia for dual task with exercises and was able to answer questions and converse with peers throughout appropriately. After session, pt in room sitting in w/c. All needs met. Start Time: 10:30 Stop Time: 11:30 Total Billed Treatment Time: 60 Total Billed Treatment 1-GRP ANNA KAY Jan 12, 2023 11:44
--- NOTE | 2023-01-12 11:46 | Therapy Group Daily Note ---
Therapy Daily Group Note Patient Education Topic Exercises, Other List Below Exercises LE Seated Exercise, LE Standing Exercise, Balance, Stretching, Gross Motor, UE Exercise Session Ratio (pt:therapist): 3:1 Goal of Session: Memory Strategies, UE/LE Strengthing Goal Met for this Session: Yes Pt Benefit of Group: Contributions to Others, Increased Functional Strength, Improved Cognition, Recognition of Peers, Socialization Other/Notes Pt demonstrated W/C mobility independently to PT group in therapy gym. Group consisted of introductions (name, place living, Thanksgiving family traditions), socialization, (B) UE/LE seated and standing (with (B) UE support on FWW) exercises, education and activities on memory strategies. Pt introduced self appropriately and actively listened to peers. Pt able to complete (B) UE/LE seated and standing exercises and tolerated well. Pt participated in activities and demonstrated understanding of memory education by vocalizing own strategies and ideas. Post therapy tx, pt sitting in W/C with call light/phone in reach, and all needs met. Start Time: 09:30 Stop Time: 10:30 Total Billed Treatment Time: 60 Total Billed Treatment 1, GRP HERBERT REYES STAGE ELECTRICIAN Jan 12, 2023 11:46
[2023-01-12 13:00] VITALS: BP 119/58
[2023-01-12 18:00] VITALS: BP 129/61
[2023-01-12 20:30] VITALS: BP 121/59
[2023-01-13 06:30] VITALS: BP 122/58
[2023-01-13] MEDS: FLECAINIDE 100 MG TABLET PO SCH ×2 (06:42→18:08)
[2023-01-13] MEDS: BETHANECHOL 10 MG TABLET PO SCH ×3 (06:42→21:05)
[2023-01-13] MEDS: carvediloL 6.25 MG TABLET PO SCH ×2 (06:43→18:08)
--- NOTE | 2023-01-13 06:59 | PM&R Progress Note ---
Subjective HPI/CC On Admission Date Seen by Provider: Jan 13, 2023 Time Seen by Provider: 12:30 Subjective/Events-last exam 01/13/2023: Patient doing much better Denies pain Will DC catheter per urology recommendations Bowels are moving 01/12/2023: Overall doing well Pardo still in place Reviewed meds No falls 01/11/2023: Patient doing a lot better Working with therapy Will discontinue catheter in the next day or 2 Conferred with urology 01/10/2023: Patient doing a lot better Denies any new problems Reviewed meds and labs Transferring with walker pretty well 01/09/2023: Doing better Dr Maradiaga will see him due to continued urinary retention Pain controlled No falls 01/08/2023: Patient failed spontaneous voiding trial Reinserted the catheter Bowels are moving No falls 01/07/2023: Much improved DC cath today hopefully able to void No pain reported BM + 01/06/2023: Patient doing well Participation is good Pardo catheter still in place Bowels are moving Pain is controlled 01/05/2023: Patient doing a lot better Upright in chair Moving legs and arms 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 Labs reviewed Review of Systems General: Fatigue, Malaise Objective Exam Vital Signs Vital Signs Date Time Temp Pulse Resp B/P (MAP) Pulse Ox O2 Delivery O2 Flow Rate FiO2 01/13/23 09:34 95 Room Air 01/13/23 08:00 36.4 81 19 103/58 (73) Capillary Refill : General Appearance: No Apparent Distress, WD/WN, Chronically ill, Obese HEENT: PERRL/EOMI, Normal ENT Inspection, Pharynx Normal Neck: Full Range of Motion, Normal Inspection, Non Tender, Supple, Carotid Bruit Respiratory: Chest Non Tender, Lungs Clear, Normal Breath Sounds, No Accessory Muscle Use, No Respiratory Distress Cardiovascular: Regular Rate, Rhythm, No Edema, No Gallop, No JVD, No Murmur, Normal Peripheral Pulses Gastrointestinal: Normal Bowel Sounds, No Organomegaly, No Pulsatile Mass, Non Tender, Soft Back: Normal Inspection, No CVA Tenderness, No Vertebral Tenderness Extremity: Normal Capillary Refill, Normal Inspection, Normal Range of Motion, Non Tender, No Calf Tenderness, No Pedal Edema Neurologic/Psychiatric: Alert, Oriented x3, No Motor/Sensory Deficits, entertainment dancer II- XII Norm as Tested, Abnormal Gait, Depressed Affect, Motor Weakness Skin: Normal Color, Warm/Dry Lymphatic: No Adenopathy Results/Procedures Lab Patient resulted labs reviewed. FIM Transfers Therapy Code Descriptions/Definitions Functional [place] Measure: 0=Not Assessed/NA 4=Minimal Assistance 1=Total Assistance 5=Supervision or Setup 2=Maximal Assistance 6=Modified [place] 3=Moderate Assistance 7=Complete IndependenceSCALE: Activities may be completed with or without assistive devices. 4-Sttoptoezm-fuacezf completes the activity by him/herself with no assistance from a helper. 5-Set-up or Clean-up Assistance-helper sets up or cleans up; patient completes activity. [place] assists only prior to or following the activity. 4-Supervision or Touching Assistance-helper provides verbal cues and/or touching/steadying and/or contact guard assistance as patient completes activity. Assistance may be provided throughout the activity or intermittently. 3-Partial/Moderate Assistance-helper does LESS THAN HALF the effort. [place] li fts, holds or supports trunk or limbs, but provides less than half the effort. 2-Substantial/Maximal Assistance-helper does MORE THAN HALF the effort. [place] lifts or holds trunk or limbs and provides more than half the effort. 4-Wkbbtfuag-tlwrri does ALL the effort. Patient does none of the effort to complete the activity. Or, the assistance of 2 or more helpers is required for the patient to complete the activity. If activity was not attempted, code reason: 7-Patient Refused. 9-Not Applicable-not attempted and the patient did not perform the activity before the current illness, exacerbation or injury. 10-Not Attempted due to Environmental Limitations-(lack of equipment, weather restraints, etc.). 88-Not Attempted due to Medical Conditions or Safety Concerns. Roll Left to Right (QC): 3 (Min (A) /c cues and bed rail use) Sit to Lying (QC): 1 (hard max (A) of 2 for supine>sit) Sit to Stand (QC): 4 (CGA) Chair/Nis-ct-Saxuq Xfer(QC): 3 (Scoot/squat pivot bed>w/c, min (A) of 1 and blocking of patient's feet.) Car Transfer (QC): 88 Gait Training Does the Patient Walk?: Yes Distance: 7' x 3 in // bars Walk 10 feet (QC): 4 (CGA for safety and steadying) Walk 50 ft with 2 Turns(QC): 4 (CGA for safety and steadying) Walk 150 ft (QC): 88 Walking 10ft/uneven surface-QC: 88 Gait Persons Needed: 2 Gait Assistive Device: FWW Wheelchair Training Does the Pt Use a Wheelchair?: Yes Distance: 170' Wheel 50 ft with 2 turns (QC): 6 Wheel 150 ft (QC): 6 Type of Wheelchair: Manual Stair Training 1 Step (curb) (QC): 88 4 Steps (QC): 88 12 Steps (QC): 88 Balance Picking up an Object (QC): 88 ADL-Treatment Eating (QC): 6 (IND per pt report) Oral Hygiene (QC): 6 Shower/Bathe Self (QC): 3 Upper Body Dressing (QC): 5 Lower Body Dressing (QC): 2 (mod A) On/Off Footwear (QC): 3 (mod A) Toileting Hygiene (QC): 1 (Per RN, 2 person required) Toilet Transfer (QC): 1 (Per RN, 2 person required) Assessment/Plan Assessment and Plan Assess & Plan/Chief Complaint Assessment: Cervical stenosis with post op myleopathy Urinary retention requiring in-dwelling catheter DC today per urology Post op constipation AF HTN HLP h/o Guillain [place] Plan: Pain control Monitor closely PT OT Catheter management Flomax 01/05/2023: Continue Pardo catheter Supportive care 01/06/2023: Supportive care Pardo cath DC on Monday Continue Flomax twice daily 01/07/2023: DC catheter Maintain Flomax Reinsert cath if can't void 01/08/2023: We will consult urology tomorrow 01/09/2023: Pardo cath Dr Maradiaga Monitor closely 01/10/2023: Appreciate urology Continue aggressive therapy 01/11/2023: Supportive care Continue Pardo catheter Appreciate urology 01/12/2023: Monitor closely Pardo cath management by Dr Maradiaga 01/13/2023: DC catheter (1) Cervical myelopathy RADHA SEVERINO DO Jan 13, 2023 06:59
[2023-01-13 08:00] VITALS: BP 103/58
[2023-01-13] MEDS: DOCUSATE SODIUM 100 MG CAPSULE PO SCH ×2 (09:22→21:05)
[2023-01-13] MEDS: SENNA W/DOCUSATE TABLET PO SCH ×2 (09:22→21:04)
[2023-01-13] MEDS: TAMSULOSIN 0.4 MG (FLOMAX) CAP PO SCH ×2 (09:22→21:05)
[2023-01-13] MEDS: SAVAYSA 60 MG PO SCH (09:23)
--- NOTE | 2023-01-13 12:51 | Physical Therapy Daily Note ---
PT Daily Note-Current Subjective Pt found lying in bed /c family present upon entry. Agreed to PT. Reports some discomfort in L hip but does not describe or rate pain level. Pain Section J - Health Conditions 1. Rarely or not at all 2. Occasionally 3. Frequently 4. Almost constantly 8. Unable to answer Pain Effect on Sleep: 1 Pain Interference with Therapy: 1 Pain Interference w/Day-to-Day: 1 Mental Status Patient Orientation: Person, Place Transfers SCALE: Activities may be completed with or without assistive devices. 7-Jxvqgkskev-aurnyhc completes the activity by him/herself with no assistance from a helper. 5-Set-up or Clean-up Assistance-helper sets up or cleans up; patient completes activity. [place] assists only prior to or following the activity. 4-Supervision or Touching Assistance-helper provides verbal cues and/or touching/steadying and/or contact guard assistance as patient completes activity. Assistance may be provided throughout the activity or intermittently. 3-Partial/Moderate Assistance-helper does LESS THAN HALF the effort. [place] lifts, holds or supports trunk or limbs, but provides less than half the effort. 2-Substantial/Maximal Assistance-helper does MORE THAN HALF the effort. [place] lifts or holds trunk or limbs and provides more than half the effort. 4-Shozirsbq-xhiygw does ALL the effort. Patient does none of the effort to complete the activity. Or, the assistance of 2 or more helpers is required for the patient to complete the activity. If activity was not attempted, code reason: 7-Patient Refused. 9-Not Applicable-not attempted and the patient did not perform the activity before the current illness, exacerbation or injury. 10-Not Attempted due to Environmental Limitations-(lack of equipment, weather restraints, etc.). 88-Not Attempted due to Medical Conditions or Safety Concerns. Sit to Lying (QC): 6 Lying to Sitting/Side of Bed(Q: 6 Sit to Stand (QC): 4 Chair/Fzb-qv-Xarhe Xfer(QC): 4 Weight Bearing Right Lower Extremity: Right Full Weight Bearing Left Lower Extremity: Left Full Weight Bearing Gait Training Distance: 82, 115, 192 Walk 10 feet (QC): 4 Walk 50 ft with 2 Turns(QC): 4 Walk 150 ft (QC): 4 Gait Persons Needed: 1 Gait Assistive Device: FWW Exercises NuStep Minutes: 5 NuStep Workload: 5 Treatments Standing Therapeutic Exercises (B) x 20ea: - Heel/toe raises - Marching Assessment Current Status: Good Progress Pt performs sitting to lying and lying to sitting transfer independently /c use of bed railing. Sit to stand and bed to chair transfer performed /c CGA only for safety due to strength deficits. No loss of balance demonstrated /c performance but pt does use a FWW to complete bed to chair transfer. Pt ambulates up to 192 feet /c use of a FWW and required CGA due to balance deficit. Pt's L knee partially buckled during ambulation but pt did not require a rest break and was able to continue. Slow gait speed /c decent step lengths displayed. Pt tolerated therapeutic exercises well but is slow to complete. Occasional seated rest breaks required to complete treatment. Pt left supine in bed /c family present, call light in place, and all needs met post-treatment. Continue to progress pt per POC. PT Telephone Maintenance Mechanic Goals Usp Goals PT Usp Goals Time Frame: Jan 25, 2023 Roll Left & Right (QC): 6 (/c bed rail) Sit to Lying (QC): 3 (min (A) 1) Lying-Sitting on Side/Bed(QC): 3 (min (A) 1) Sit to Stand (QC): 3 (mod (A) of 1) Chair/Ndo-zo-Shxli Xfer(QC): 3 (mod (A) of 1 /c sliding board or stand pivot) Toilet Transfer (QC): 3 (mod (A) of 1) Car Transfer (QC): 3 (Mod (A) ) Does the Patient Walk: No and Walking Goal IS indicated Walk 10 feet (QC): 1 ((A) of 2 /c FWW) Walk 50ft with 2 Turns (QC): 1 ((A) of 2 /c FWW) Walk 150 ft (QC): 9 (max distance prior to surgery was 100' due to (B) knee and back pain) Walking 10ft on Uneven Surface: 1 ((A) of 2 /c FWW) 1 Step (curb) (QC): 1 ((A) of 2 with rails or FWW) 4 Steps (QC): 88 12 Steps (QC): 88 Picking up an Object (QC): 3 (mod (A) with walker and universal grinder operator) Does the Pt use WC or Scooter?: Yes Wheel 50 feet with 2 turns (QC: 6 Type: Manual Wheel 150 feet: 6 PT Plan Treatment/Plan Treatment Plan: Continue Plan of Care Treatment Plan: Bed Mobility, Education, Functional Activity Rahel, Functional Strength, Gait, Safety, Therapeutic Exercise, Transfers Treatment Duration: Jan 25, 2023 Frequency: At least 5 of 7 days/Wk (IRF) Estimated Hrs Per Day: 1.5 hours per day Patient and/or Family Agrees t: Yes Time Time In: 1000 Time Out: 1100 DATE: Jan 13, 2023 Total Billed Treatment Time: 60 Total Billed Treatment 1 visit GT x 2 EX x 1 FA x 1 YULIA COOPER PROJECT DESIGN ENGINEER Jan 13, 2023 12:51
--- NOTE | 2023-01-13 14:40 | Physical Therapy Daily Note ---
PT Daily Note-Current Subjective Pt found seated in gym /c OT present. Agreed to PT/OT treatment. No pain reported pre-treatment but does report some discomfort in quad muscles. Does not rate pain. Pain Section J - Health Conditions 1. Rarely or not at all 2. Occasionally 3. Frequently 4. Almost constantly 8. Unable to answer Pain Effect on Sleep: 1 Pain Interference with Therapy: 1 Pain Interference w/Day-to-Day: 1 Mental Status Patient Orientation: Person, Place Attachments: Pardo Catheter Transfers SCALE: Activities may be completed with or without assistive devices. 3-Zenvutajmf-lqvckxe completes the activity by him/herself with no assistance from a helper. 5-Set-up or Clean-up Assistance-helper sets up or cleans up; patient completes activity. [place] assists only prior to or following the activity. 4-Supervision or Touching Assistance-helper provides verbal cues and/or touching/steadying and/or contact guard assistance as patient completes activity. Assistance may be provided throughout the activity or intermittently. 3-Partial/Moderate Assistance-helper does LESS THAN HALF the effort. [place] lifts, holds or supports trunk or limbs, but provides less than half the effort. 2-Substantial/Maximal Assistance-helper does MORE THAN HALF the effort. [place] lifts or holds trunk or limbs and provides more than half the effort. 5-Ikuaizetj-eojonn does ALL the effort. Patient does none of the effort to complete the activity. Or, the assistance of 2 or more helpers is required for the patient to complete the activity. If activity was not attempted, code reason: 7-Patient Refused. 9-Not Applicable-not attempted and the patient did not perform the activity before the current illness, exacerbation or injury. 10-Not Attempted due to Environmental Limitations-(lack of equipment, weather restraints, etc.). 88-Not Attempted due to Medical Conditions or Safety Concerns. Sit to Stand (QC): 4 Weight Bearing Right Lower Extremity: Right Full Weight Bearing Left Lower Extremity: Left Full Weight Bearing Gait Training Does the Patient Walk?: Yes Distance: 175, 100 Walk 10 feet (QC): 4 Walk 50 ft with 2 Turns(QC): 4 Walk 150 ft (QC): 4 Gait Persons Needed: 1 Gait Assistive Device: FWW Treatments Standing Therapeutic Activities (B): Step taps on 4 inch step x 20ea Step ups on 4 inch step x 10ea Assessment Current Status: Good Progress Pt performs sit to stand transfer from wheelchair /c CGA only for safety due to strength deficits. Pt performed step tapping and step up activities in parallel bars in order to work towards completion of steps. Pt tolerated activities well but does report increased fatigue and required occasional seated rest breaks to complete. He ambulates /c use of a FWW up to 175 feet before requesting a seated rest break. CGA required for safety due to balance deficits. Pt's R knee buckled 1x during gait training but pt able to maintain balance without steadying assistance. Pt required verbal cues for proper step length and head posture during ambulation. Increased fatigue reported post-treatment. Pt left seated on edge of bed post-treatment /c family present and all needs met. Continue to progress pt per POC. PT Intermediate Goals Mechanical Manufacturing Engineer Goals PT Intermediate Goals Time Frame: Jan 25, 2023 Roll Left & Right (QC): 6 (/c bed rail) Sit to Lying (QC): 3 (min (A) 1) Lying-Sitting on Side/Bed(QC): 3 (min (A) 1) Sit to Stand (QC): 3 (mod (A) of 1) Chair/Sfl-us-Qmrho Xfer(QC): 3 (mod (A) of 1 /c sliding board or stand pivot) Toilet Transfer (QC): 3 (mod (A) of 1) Car Transfer (QC): 3 (Mod (A) ) Does the Patient Walk: No and Walking Goal IS indicated Walk 10 feet (QC): 1 ((A) of 2 /c FWW) Walk 50ft with 2 Turns (QC): 1 ((A) of 2 /c FWW) Walk 150 ft (QC): 9 (max distance prior to surgery was 100' due to (B) knee and back pain) Walking 10ft on Uneven Surface: 1 ((A) of 2 /c FWW) 1 Step (curb) (QC): 1 ((A) of 2 with rails or FWW) 4 Steps (QC): 88 12 Steps (QC): 88 Picking up an Object (QC): 3 (mod (A) with walker and siebel administrator) Does the Pt use WC or Scooter?: Yes Wheel 50 feet with 2 turns (QC: 6 Type: Manual Wheel 150 feet: 6 PT Plan Treatment/Plan Treatment Plan: Continue Plan of Care Treatment Plan: Bed Mobility, Education, Functional Activity Ra[place], Functional Strength, Gait, Safety, Therapeutic Exercise, Transfers Treatment Duration: Jan 25, 2023 Frequency: At least 5 of 7 days/Wk (IRF) Estimated Hrs Per Day: 1.5 hours per day Patient and/or Family Agrees t: Yes Time Time In: 1400 Time Out: 1430 DATE: Jan 13, 2023 Total Billed Treatment Time: 30 Total Billed Treatment 1 visit GT x 1 EX x 1 Co-treatment time: 4918-1259 Total treatment time: 9688-9433 YULIA COOPER PTA Jan 13, 2023 14:40
--- NOTE | 2023-01-13 14:54 | Occupational Ther Daily Note ---
OT Current Status-Daily Note Subjective Pt alert, lying in bed. Pt agrees to therapy. No c/o pain. Co-treat with PT([id number]), skills of 2 clinicians required to decrease fall risk while completing pre-step tasks, ambulation and dynamic standing tasks. PT focusing on wt shift, balance during all mobility while OT focusing on hand placement and assisting PT to decrease fall risk with dynamic balance tasks. Mental Status/Objective Patient Orientation: Person, Place, Time, Situation ADL-Treatment Pt agrees to shower. Supine to EOB independent with HOB slightly raised and bed rails. CGA for sit to stand and SPT to w/c from bed. Pt propelled w/c into bathroom independently. CGA for transfer into shower. Pt sat 90% of the time to complete shower then stood with grabbars while assist given to cleanse buttocks. Discussed with pt and daughter about using toilet tongs or sitz bath to cleanse buttocks. Sitting at sink, pt completes oral care independently. Set up for UBD. Pt able to thread Pardo and feet into pant legs then pull to stand with grabbars and use B UE's to hike pants with min A to assist with balance. Assist with socks. Therapy Code Descriptions/Definitions Functional [place] Measure: 0=Not Assessed/NA 4=Minimal Assistance 1=Total Assistance 5=Supervision or Setup 2=Maximal Assistance 6=Modified [place] 3=Moderate Assistance 7=Complete IndependenceSCALE: Activities may be completed with or without assistive devices. 9-Gtvbsqcihq-gdifzff completes the activity by him/herself with no assistance from a helper. 5-Set-up or Clean-up Assistance-helper sets up or cleans up; patient completes activity. [place] assists only prior to or following the activity. 4-Supervision or Touching Assistance-helper provides verbal cues and/or touching/steadying and/or contact guard assistance as patient completes activit y. Assistance may be provided throughout the activity or intermittently. 3-Partial/Moderate Assistance-helper does LESS THAN HALF the effort. [place] lifts, holds or supports trunk or limbs, but provides less than half the effort. 2-Substantial/Maximal Assistance-helper does MORE THAN HALF the effort. [place] lifts or holds trunk or limbs and provides more than half the effort. 5-Fahltgicl-ufmkvr does ALL the effort. Patient does none of the effort to complete the activity. Or, the assistance of 2 or more helpers is required for the patient to complete the activity. If activity was not attempted, code reason: 7-Patient Refused. 9-Not Applicable-not attempted and the patient did not perform the activity before the current illness, exacerbation or injury. 10-Not Attempted due to Environmental Limitations-(lack of equipment, weather restraints, etc.). 88-Not Attempted due to Medical Conditions or Safety Concerns. Oral Hygiene (QC): 6 Shower/Bathe Self (QC): 3 Upper Body Dressing (QC): 5 Lower Body Dressing (QC): 3 On/Off Footwear: 2 Other Treatment Pt completed dynamic standing task in parallel bars with alternating hands and also using B UE to complete tasks with only CGA assist. Pt then working on toe touches, step up to increase balance/strength for stairs. Pt then ambulated ~100ft and ~175ft with walker, assist x2 for safety only. After session, pt sitting on EOB with call light/phone in reach. Daughter present in room. OT Ceramic Capacitor Processor Goals Ceramic Capacitor Processor Goals Time Frame: Jan 27, 2023 Acute change in mental status: 0 Inattention: 0 Disorganized thinkin Altered level of consciousness: 0 Eating (QC): 6 Oral Hygiene (QC): 6 Toileting Hygiene (QC): 4 Shower/Bathe Self (QC): 4 Upper Body Dressing (QC): 5 Lower Body Dressing (QC): 4 On/Off Footwear (QC): 5 Additional Goals: 1-Demonstrate ADL Tasks, 2-Verbalize Understanding, 3- ImproveStrength/[place] 1=Demonstrate adherence to instructed precautions during ADL tasks. 2=Patient will verbalize/demonstrate understanding of assistive devices/modifications for ADL. 3=Patient will improve strength/tolerance for activity to enable patient to perform ADL's. OT Education/Plan Problem List/Assessment Assessment: Decreased Activ Tolerance, Impaired Funct Balance, Impaired Self- Care Skills Discharge Recommendations Plan/Recommendations: Continue POC Treatment Plan/Plan of Care Patient would benefit from OT for education, treatment and training to promote independence in ADL's, mobility, safety and/or upper extremity function for ADL's. Plan of Care: ADL Retraining, Functional Mobility, Group Exercise/Act as Ind, UE Funct Exercise/Act, UE Neuromus Re-Ed/Coord Treatment Duration: Jan 27, 2023 Frequency: At least 5 of 7 days/Wk (IRF) Estimated Hrs Per Day: 1.5 hours per day Agreement: Yes Rehab Potential: Fair Time Start Time: 13:00 Stop Time: 14:30 DATE: Jan 13, 2023 Total Time Billed (hr/min): 90 Billed Treatment Time 1 visit-ADL 3 (45 min) EX 1 (15 min) FA 2 (30 min) co-treat with PT 1400- 1430, individual [id number] ANNA KAY Jan 13, 2023 14:54
[2023-01-13 18:06] VITALS: BP 143/65
[2023-01-13 20:57] VITALS: BP 113/54
[2023-01-14] MEDS: BETHANECHOL 10 MG TABLET PO SCH ×3 (06:01→21:25)
[2023-01-14] MEDS: carvediloL 6.25 MG TABLET PO SCH ×2 (06:01→18:00)
[2023-01-14] MEDS: FLECAINIDE 100 MG TABLET PO SCH ×2 (06:02→18:01)
--- NOTE | 2023-01-14 06:36 | PM&R Progress Note ---
Subjective HPI/CC On Admission Date Seen by Provider: Jan 14, 2023 Time Seen by Provider: 12:30 Subjective/Events-last exam 01/14/2023: Patient doing well Urinating well but does require in and out caths at times Urecholine and Flomax maintained 01/13/2023: Patient doing much better Denies pain Will DC catheter per urology recommendations Bowels are moving 01/12/2023: Overall doing well Pardo still in place Reviewed meds No falls 01/11/2023: Patient doing a lot better Working with therapy Will discontinue catheter in the next day or 2 Conferred with urology 01/10/2023: Patient doing a lot better Denies any new problems Reviewed meds and labs Transferring with walker pretty well 01/09/2023: Doing better Dr Maradiaga will see him due to continued urinary retention Pain controlled No falls 01/08/2023: Patient failed spontaneous voiding trial Reinserted the catheter Bowels are moving No falls 01/07/2023: Much improved DC cath today hopefully able to void No pain reported BM + 01/06/2023: Patient doing well Participation is good Pardo catheter still in place Bowels are moving Pain is controlled 01/05/2023: Patient doing a lot better Upright in chair Moving legs and arms 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 Labs reviewed Review of Systems General: Fatigue, Malaise Objective Exam Vital Signs Vital Signs Date Time Temp Pulse Resp B/P (MAP) Pulse Ox O2 Delivery O2 Flow Rate FiO2 01/14/23 21:08 Room Air 01/14/23 19:59 36.5 86 20 130/59 (82) 94 Capillary Refill : General Appearance: No Apparent Distress, WD/WN, Chronically ill, Obese HEENT: PERRL/EOMI, Normal ENT Inspection, Pharynx Normal Neck: Full Range of Motion, Normal Inspection, Non Tender, Supple, Carotid Bruit Respiratory: Chest Non Tender, Lungs Clear, Normal Breath Sounds, No Accessory Muscle Use, No Respiratory Distress Cardiovascular: Regular Rate, Rhythm, No Edema, No Gallop, No JVD, No Murmur, Normal Peripheral Pulses Gastrointestinal: Normal Bowel Sounds, No Organomegaly, No Pulsatile Mass, Non Tender, Soft Back: Normal Inspection, No CVA Tenderness, No Vertebral Tenderness Extremity: Normal Capillary Refill, Normal Inspection, Normal Range of Motion, Non Tender, No Calf Tenderness, No Pedal Edema Neurologic/Psychiatric: Alert, Oriented x3, No Motor/Sensory Deficits, room clerk II- XII Norm as Tested, Abnormal Gait, Depressed Affect, Motor Weakness Skin: Normal Color, Warm/Dry Lymphatic: No Adenopathy Results/Procedures Lab Patient resulted labs reviewed. FIM Transfers Therapy Code Descriptions/Definitions Functional [place] Measure: 0=Not Assessed/NA 4=Minimal Assistance 1=Total Assistance 5=Supervision or Setup 2=Maximal Assistance 6=Modified [place] 3=Moderate Assistance 7=Complete IndependenceSCALE: Activities may be completed with or without assistive devices. 9-Jsvxkdicbf-fmbuwlz completes the activity by him/herself with no assistance from a helper. 5-Set-up or Clean-up Assistance-helper sets up or cleans up; patient completes a ctivity. [place] assists only prior to or following the activity. 4-Supervision or Touching Assistance-helper provides verbal cues and/or touching/steadying and/or contact guard assistance as patient completes activity. Assistance may be provided throughout the activity or intermittently. 3-Partial/Moderate Assistance-helper does LESS THAN HALF the effort. [place] lifts, holds or supports trunk or limbs, but provides less than half the effort. 2-Substantial/Maximal Assistance-helper does MORE THAN HALF the effort. [place] lifts or holds trunk or limbs and provides more than half the effort. 0-Eqkoenvhi-pffwwd does ALL the effort. Patient does none of the effort to complete the activity. Or, the assistance of 2 or more helpers is required for the patient to complete the activity. If activity was not attempted, code reason: 7-Patient Refused. 9-Not Applicable-not attempted and the patient did not perform the activity before the current illness, exacerbation or injury. 10-Not Attempted due to Environmental Limitations-(lack of equipment, weather restraints, etc.). 88-Not Attempted due to Medical Conditions or Safety Concerns. Roll Left to Right (QC): 3 (Min (A) /c cues and bed rail use) Sit to Lying (QC): 6 Sit to Stand (QC): 4 Chair/Fvh-sf-Mlrfl Xfer(QC): 4 Car Transfer (QC): 88 Gait Training Does the Patient Walk?: Yes Distance: 175, 100 Walk 10 feet (QC): 4 Walk 50 ft with 2 Turns(QC): 4 Walk 150 ft (QC): 4 Walking 10ft/uneven surface-QC: 88 Gait Persons Needed: 1 Gait Assistive Device: FWW Wheelchair Training Does the Pt Use a Wheelchair?: Yes Distance: 170' Wheel 50 ft with 2 turns (QC): 6 Wheel 150 ft (QC): 6 Type of Wheelchair: Manual Stair Training 1 Step (curb) (QC): 88 4 Steps (QC): 88 12 Steps (QC): 88 Balance Picking up an Object (QC): 88 ADL-Treatment Eating (QC): 6 (IND per pt report) Oral Hygiene (QC): 6 Shower/Bathe Self (QC): 3 Upper Body Dressing (QC): 5 Lower Body Dressing (QC): 3 On/Off Footwear (QC): 2 Toileting Hygiene (QC): 1 (Per RN, 2 person required) Toilet Transfer (QC): 1 (Per RN, 2 person required) Assessment/Plan Assessment and Plan Assess & Plan/Chief Complaint Assessment: Cervical stenosis with post op myleopathy Urinary retention requiring in-dwelling catheter DC today per urology Post op constipation AF HTN HLP h/o Guillain [place] Plan: Pain control Monitor closely PT OT Catheter management Flomax 01/05/2023: Continue Pardo catheter Supportive care 01/06/2023: Supportive care Pardo cath DC on Monday Continue Flomax twice daily 01/07/2023: DC catheter Maintain Flomax Reinsert cath if can't void 01/08/2023: We will consult urology tomorrow 01/09/2023: Pardo cath Dr Maradiaga Monitor closely 01/10/2023: Appreciate urology Continue aggressive therapy 01/11/2023: Supportive care Continue Pardo catheter Appreciate urology 01/12/2023: Monitor closely Pardo cath management by Dr Maradiaga 01/13/2023: DC catheter 01/14/2023: Supportive care Urology appreciated (1) Cervical myelopathy RADHA SEVERINO DO Jan 14, 2023 06:36
[2023-01-14 08:00] VITALS: BP 114/58
[2023-01-14] MEDS: SAVAYSA 60 MG PO SCH (08:43)
[2023-01-14] MEDS: TAMSULOSIN 0.4 MG (FLOMAX) CAP PO SCH ×2 (08:43→20:02)
[2023-01-14] MEDS: SENNA W/DOCUSATE TABLET PO SCH ×2 (08:44→20:02)
[2023-01-14] MEDS: DOCUSATE SODIUM 100 MG CAPSULE PO SCH ×2 (08:44→20:02)
[2023-01-14 19:59] VITALS: BP 130/59
[2023-01-15] MEDS: carvediloL 6.25 MG TABLET PO SCH ×2 (06:43→18:00)
[2023-01-15] MEDS: BETHANECHOL 10 MG TABLET PO SCH ×3 (06:43→21:41)
[2023-01-15] MEDS: FLECAINIDE 100 MG TABLET PO SCH ×2 (06:44→18:01)
--- NOTE | 2023-01-15 06:47 | PM&R Progress Note ---
Subjective HPI/CC On Admission Date Seen by Provider: Jan 15, 2023 Time Seen by Provider: 12:30 Subjective/Events-last exam 01/15/2023: Improved overall Urination is still an issue and will discuss with Urology No falls No pain 01/14/2023: Patient doing well Urinating well but does require in and out caths at times Urecholine and Flomax maintained 01/13/2023: Patient doing much better Denies pain Will DC catheter per urology recommendations Bowels are moving 01/12/2023: Overall doing well Pardo still in place Reviewed meds No falls 01/11/2023: Patient doing a lot better Working with therapy Will discontinue catheter in the next day or 2 Conferred with urology 01/10/2023: Patient doing a lot better Denies any new problems Reviewed meds and labs Transferring with walker pretty well 01/09/2023: Doing better Dr Maradiaga will see him due to continued urinary retention Pain controlled No falls 01/08/2023: Patient failed spontaneous voiding trial Reinserted the catheter Bowels are moving No falls 01/07/2023: Much improved DC cath today hopefully able to void No pain reported BM + 01/06/2023: Patient doing well Participation is good Pardo catheter still in place Bowels are moving Pain is controlled 01/05/2023: Patient doing a lot better Upright in chair Moving legs and arms 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 Labs reviewed Review of Systems General: Fatigue, Malaise Objective Exam Vital Signs Vital Signs Date Time Temp Pulse Resp B/P (MAP) Pulse Ox O2 Delivery O2 Flow Rate FiO2 01/15/23 09:30 Room Air 01/15/23 08:00 36.6 71 18 97/55 (69) 94 Capillary Refill : General Appearance: No Apparent Distress, WD/WN, Chronically ill, Obese HEENT: PERRL/EOMI, Normal ENT Inspection, Pharynx Normal Neck: Full Range of Motion, Normal Inspection, Non Tender, Supple, Carotid Bruit Respiratory: Chest Non Tender, Lungs Clear, Normal Breath Sounds, No Accessory Muscle Use, No Respiratory Distress Cardiovascular: Regular Rate, Rhythm, No Edema, No Gallop, No JVD, No Murmur, Normal Peripheral Pulses Gastrointestinal: Normal Bowel Sounds, No Organomegaly, No Pulsatile Mass, Non Tender, Soft Back: Normal Inspection, No CVA Tenderness, No Vertebral Tenderness Extremity: Normal Capillary Refill, Normal Inspection, Normal Range of Motion, Non Tender, No Calf Tenderness, No Pedal Edema Neurologic/Psychiatric: Alert, Oriented x3, No Motor/Sensory Deficits, marketing education teacher II- XII Norm as Tested, Abnormal Gait, Depressed Affect, Motor Weakness Skin: Normal Color, Warm/Dry Lymphatic: No Adenopathy Results/Procedures Lab Patient resulted labs reviewed. FIM Transfers Therapy Code Descriptions/Definitions Functional [place] Measure: 0=Not Assessed/NA 4=Minimal Assistance 1=Total Assistance 5=Supervision or Setup 2=Maximal Assistance 6=Modified [place] 3=Moderate Assistance 7=Complete IndependenceSCALE: Activities may be completed with or without assistive devices. 9-Tbiyzjvsqi-alepoot completes the activity by him/herself with no assistance from a helper. 5-Set-up or Clean-up Assistance-helper sets up or cleans up; patient completes activity. [place] assists only prior to or following the activity. 4-Supervision or Touching Assistance-helper provides verbal cues and/or touching /steadying and/or contact guard assistance as patient completes activity. Assistance may be provided throughout the activity or intermittently. 3-Partial/Moderate Assistance-helper does LESS THAN HALF the effort. [place] lifts, holds or supports trunk or limbs, but provides less than half the effort. 2-Substantial/Maximal Assistance-helper does MORE THAN HALF the effort. [place] lifts or holds trunk or limbs and provides more than half the effort. 1-Zyabpqrcb-eytduh does ALL the effort. Patient does none of the effort to complete the activity. Or, the assistance of 2 or more helpers is required for the patient to complete the activity. If activity was not attempted, code reason: 7-Patient Refused. 9-Not Applicable-not attempted and the patient did not perform the activity before the current illness, exacerbation or injury. 10-Not Attempted due to Environmental Limitations-(lack of equipment, weather restraints, etc.). 88-Not Attempted due to Medical Conditions or Safety Concerns. Roll Left to Right (QC): 3 (Min (A) /c cues and bed rail use) Sit to Lying (QC): 6 Sit to Stand (QC): 4 Chair/Aoo-zv-Ulxam Xfer(QC): 4 Car Transfer (QC): 88 Gait Training Does the Patient Walk?: Yes Distance: 175, 100 Walk 10 feet (QC): 4 Walk 50 ft with 2 Turns(QC): 4 Walk 150 ft (QC): 4 Walking 10ft/uneven surface-QC: 88 Gait Persons Needed: 1 Gait Assistive Device: FWW Wheelchair Training Does the Pt Use a Wheelchair?: Yes Distance: 170' Wheel 50 ft with 2 turns (QC): 6 Wheel 150 ft (QC): 6 Type of Wheelchair: Manual Stair Training 1 Step (curb) (QC): 88 4 Steps (QC): 88 12 Steps (QC): 88 Balance Picking up an Object (QC): 88 ADL-Treatment Eating (QC): 6 (IND per pt report) Oral Hygiene (QC): 6 Shower/Bathe Self (QC): 3 Upper Body Dressing (QC): 5 Lower Body Dressing (QC): 3 On/Off Footwear (QC): 2 Toileting Hygiene (QC): 1 (Per RN, 2 person required) Toilet Transfer (QC): 1 (Per RN, 2 person required) Assessment/Plan Assessment and Plan Assess & Plan/Chief Complaint Assessment: Cervical stenosis with post op myleopathy Urinary retention requiring in-dwelling catheter DC today per urology Post op constipation AF HTN HLP h/o Guillain [place] Plan: Pain control Monitor closely PT OT Catheter management Flomax 01/05/2023: Continue Pardo catheter Supportive care 01/06/2023: Supportive care Pardo cath DC on Monday Continue Flomax twice daily 01/07/2023: DC catheter Maintain Flomax Reinsert cath if can't void 01/08/2023: We will consult urology tomorrow 01/09/2023: Pardo cath Dr Maradiaga Monitor closely 01/10/2023: Appreciate urology Continue aggressive therapy 01/11/2023: Supportive care Continue Pardo catheter Appreciate urology 01/12/2023: Monitor closely Pardo cath management by Dr Maradiaga 01/13/2023: DC catheter 01/14/2023: Supportive care Urology appreciated 01/15/2023: Urology management appreciated (1) Cervical myelopathy RADHA SEVERINO DO Jan 15, 2023 06:47
[2023-01-15 08:00] VITALS: BP 97/55
[2023-01-15] MEDS: SAVAYSA 60 MG PO SCH (08:30)
[2023-01-15] MEDS: SENNA W/DOCUSATE TABLET PO SCH ×2 (08:30→20:22)
[2023-01-15] MEDS: DOCUSATE SODIUM 100 MG CAPSULE PO SCH ×2 (08:30→20:22)
[2023-01-15] MEDS: TAMSULOSIN 0.4 MG (FLOMAX) CAP PO SCH ×2 (08:30→20:22)
[2023-01-15 20:26] VITALS: BP 128/60
[2023-01-16 06:10] LABS: BASOPHILS # (AUTO) 0.1 10^3/uL (0.0-0.1); BASOPHILS % (AUTO) 1 % (0-10); EOSINOPHILS # (AUTO) 0.2 10^3/uL (0.0-0.3); EOSINOPHILS % (AUTO) 1 % (0-10); HEMATOCRIT 37 % (40-54); HEMOGLOBIN 12.8 g/dL (13.3-17.7); LYMPHOCYTES # (AUTO) 2.2 10^3/uL (1.0-4.0); LYMPHOCYTES % (AUTO) 20 % (12-44); MEAN CORPUSCULAR HEMOGLOBIN 32 pg (25-34); MEAN CORPUSCULAR HGB CONC 35 g/dL (32-36); MEAN CORPUSCULAR VOLUME 92 fL (80-99); MONOCYTES # (AUTO) 0.9 10^3/uL (0.0-1.0); MONOCYTES % (AUTO) 9 % (0-12); NEUTROPHILS # (AUTO) 7.4 10^3/uL (1.8-7.8); NEUTROPHILS % (AUTO) 68 % (42-75); PLATELET COUNT 343 10^3/uL (130-400); WHITE BLOOD COUNT 10.9 10^3/uL (4.3-11.0)
[2023-01-16 06:31] LABS: ALBUMIN 3.6 GM/DL (3.2-4.5); BILIRUBIN,TOTAL 0.5 MG/DL (0.1-1.0); CALCIUM 8.8 MG/DL (8.5-10.1); CREATININE SERUM 0.88 MG/DL (0.60-1.30); POTASSIUM 4.3 MMOL/L (3.6-5.0); TOTAL PROTEIN 6.5 GM/DL (6.4-8.2)
[2023-01-16] MEDS: carvediloL 6.25 MG TABLET PO SCH ×2 (06:51→18:50)
[2023-01-16] MEDS: FLECAINIDE 100 MG TABLET PO SCH ×2 (06:51→18:49)
[2023-01-16] MEDS: BETHANECHOL 10 MG TABLET PO SCH ×3 (06:51→21:09)
--- NOTE | 2023-01-16 07:19 | PM&R Progress Note ---
Subjective HPI/CC On Admission Date Seen by Provider: Jan 16, 2023 Time Seen by Provider: 09:00 Subjective/Events-last exam 01/16/2023: Dramatic improvement Ambulating pretty well Voiding really well male I did confer with urology He wants to go home on Monday which I think is reasonable as well as he is doing 01/15/2023: Improved overall Urination is still an issue and will discuss with Urology No falls No pain 01/14/2023: Patient doing well Urinating well but does require in and out caths at times Urecholine and Flomax maintained 01/13/2023: Patient doing much better Denies pain Will DC catheter per urology recommendations Bowels are moving 01/12/2023: Overall doing well Pardo still in place Reviewed meds No falls 01/11/2023: Patient doing a lot better Working with therapy Will discontinue catheter in the next day or 2 Conferred with urology 01/10/2023: Patient doing a lot better Denies any new problems Reviewed meds and labs Transferring with walker pretty well 01/09/2023: Doing better Dr Maradiaga will see him due to continued urinary retention Pain controlled No falls 01/08/2023: Patient failed spontaneous voiding trial Reinserted the catheter Bowels are moving No falls 01/07/2023: Much improved DC cath today hopefully able to void No pain reported BM + 01/06/2023: Patient doing well Participation is good Pardo catheter still in place Bowels are moving Pain is controlled 01/05/2023: Patient doing a lot better Upright in chair Moving legs and arms 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 Labs reviewed Review of Systems General: Fatigue, Malaise Objective Exam Vital Signs Vital Signs Date Time Temp Pulse Resp B/P (MAP) Pulse Ox O2 Delivery O2 Flow Rate FiO2 01/16/23 21:15 Room Air 01/16/23 20:53 36.3 90 20 107/56 (73) 94 Capillary Refill : General Appearance: No Apparent Distress, WD/WN, Chronically ill, Obese HEENT: PERRL/EOMI, Normal ENT Inspection, Pharynx Normal Neck: Full Range of Motion, Normal Inspection, Non Tender, Supple, Carotid Bruit Respiratory: Chest Non Tender, Lungs Clear, Normal Breath Sounds, No Accessory Muscle Use, No Respiratory Distress Cardiovascular: Regular Rate, Rhythm, No Edema, No Gallop, No JVD, No Murmur, Normal Peripheral Pulses Gastrointestinal: Normal Bowel Sounds, No Organomegaly, No Pulsatile Mass, Non Tender, Soft Back: Normal Inspection, No CVA Tenderness, No Vertebral Tenderness Extremity: Normal Capillary Refill, Normal Inspection, Normal Range of Motion, Non Tender, No Calf Tenderness, No Pedal Edema Neurologic/Psychiatric: Alert, Oriented x3, No Motor/Sensory Deficits, communications clerk II- XII Norm as Tested, Abnormal Gait, Depressed Affect, Motor Weakness Skin: Normal Color, Warm/Dry Lymphatic: No Adenopathy Results/Procedures Lab Laboratory Tests 01/16/23 05:34 Patient resulted labs reviewed. FIM Transfers Therapy Code Descriptions/Definitions Functional [place] Measure: 0=Not Assessed/NA 4=Minimal Assistance 1=Total Assistance 5=Supervision or Setup 2=Maximal Assistance 6=Modified [place] 3=Moderate Assistance 7=Complete IndependenceSCALE: Activities may be completed with or without assistive devices. 8-Lwqigqfwxw-ashhuiw completes the activity by him/herself with no assistance from a helper. 5-Set-up or Clean-up Assistance-helper sets up or cleans up; patient completes activity. [place] assists only prior to or following the activity. 4-Supervision or Touching Assistance-helper provides verbal cues and/or touching/steadying and/or contact guard assistance as patient completes activity. Assistance may be provided throughout the activity or intermittently. 3-Partial/Moderate Assistance-helper does LESS THAN HALF the effort. [place] lifts, holds or supports trunk or limbs, but provides less than half the effort. 2-Substantial/Maximal Assistance-helper does MORE THAN HALF the effort. [place] lifts or holds trunk or limbs and provides more than half the effort. 9-Lnuvvfayr-qgjswu does ALL the effort. Patient does none of the effort to complete the activity. Or, the assistance of 2 or more helpers is required for the patient to complete the activity. If activity was not attempted, code reason: 7-Patient Refused. 9-Not Applicable-not attempted and the patient did not perform the activity before the current illness, exacerbation or injury. 10-Not Attempted due to Environmental Limitations-(lack of equipment, weather r estraints, etc.). 88-Not Attempted due to Medical Conditions or Safety Concerns. Roll Left to Right (QC): 3 (Min (A) /c cues and bed rail use) Sit to Lying (QC): 6 Sit to Stand (QC): 4 Chair/Sjw-hn-Hxfag Xfer(QC): 4 Car Transfer (QC): 88 Gait Training Does the Patient Walk?: Yes Distance: 175, 100 Walk 10 feet (QC): 4 Walk 50 ft with 2 Turns(QC): 4 Walk 150 ft (QC): 4 Walking 10ft/uneven surface-QC: 88 Gait Persons Needed: 1 Gait Assistive Device: FWW Wheelchair Training Does the Pt Use a Wheelchair?: Yes Distance: 170' Wheel 50 ft with 2 turns (QC): 6 Wheel 150 ft (QC): 6 Type of Wheelchair: Manual Stair Training 1 Step (curb) (QC): 88 4 Steps (QC): 88 12 Steps (QC): 88 Balance Picking up an Object (QC): 88 ADL-Treatment Eating (QC): 6 (IND per pt report) Oral Hygiene (QC): 6 Shower/Bathe Self (QC): 3 Upper Body Dressing (QC): 5 Lower Body Dressing (QC): 3 On/Off Footwear (QC): 2 Toileting Hygiene (QC): 1 (Per RN, 2 person required) Toilet Transfer (QC): 1 (Per RN, 2 person required) Assessment/Plan Assessment and Plan Assess & Plan/Chief Complaint Assessment: Cervical stenosis with post op myleopathy Urinary retention requiring in-dwelling catheter DC today per urology Post op constipation AF HTN HLP h/o Guillain [place] Plan: Pain control Monitor closely PT OT Catheter management Flomax 01/05/2023: Continue Pardo catheter Supportive care 01/06/2023: Supportive care Pardo cath DC on Monday Continue Flomax twice daily 01/07/2023: DC catheter Maintain Flomax Reinsert cath if can't void 01/08/2023: We will consult urology tomorrow 01/09/2023: Pardo cath Dr Maradiaga Monitor closely 01/10/2023: Appreciate urology Continue aggressive therapy 01/11/2023: Supportive care Continue Pardo catheter Appreciate urology 01/12/2023: Monitor closely Pardo cath management by Dr Maradiaga 01/13/2023: DC catheter 01/14/2023: Supportive care Urology appreciated 01/15/2023: Urology management appreciated 01/16/2023: Urinary retention resolving Discharge planning on Monday (1) Cervical myelopathy RADHA SEVERINO DO Jan 16, 2023 07:19
[2023-01-16 08:00] VITALS: BP 112/56
[2023-01-16] MEDS: SAVAYSA 60 MG PO SCH (08:21)
[2023-01-16] MEDS: DOCUSATE SODIUM 100 MG CAPSULE PO SCH ×2 (08:21→21:09)
[2023-01-16] MEDS: SENNA W/DOCUSATE TABLET PO SCH ×2 (08:21→21:22)
[2023-01-16] MEDS: TAMSULOSIN 0.4 MG (FLOMAX) CAP PO SCH ×2 (08:21→21:09)
[2023-01-16] MEDS ORDERED: PATIENT MAY USE OWN MED,SINGLE MED PO SCH (09:00)
--- NOTE | 2023-01-16 12:41 | Physical Therapy Daily Note ---
PT Daily Note-Current Subjective Pt laying Supine in bed upon arrival. Pt agrees to PT to focus on walking and increased mobility for possible d/c on Monday (01/21) for wedding. Pain Location: Left Location Body Site: Hip Pain Description: Ache Comment: Reported but not rated Section J - Health Conditions 1. Rarely or not at all 2. Occasionally 3. Frequently 4. Almost constantly 8. Unable to answer Pain Effect on Sleep: 1 Pain Interference with Therapy: 1 Pain Interference w/Day-to-Day: 1 Mental Status Patient Orientation: Person, Place, Time, Situation Transfers SCALE: Activities may be completed with or without assistive devices. 0-Zhztqlclnx-nyavixl completes the activity by him/herself with no assistance from a helper. 5-Set-up or Clean-up Assistance-helper sets up or cleans up; patient completes activity. [place] assists only prior to or following the activity. 4-Supervision or Touching Assistance-helper provides verbal cues and/or touching/steadying and/or contact guard assistance as patient completes activity. Assistance may be provided throughout the activity or intermittently. 3-Partial/Moderate Assistance-helper does LESS THAN HALF the effort. [place] lifts, holds or supports trunk or limbs, but provides less than half the effort. 2-Substantial/Maximal Assistance-helper does MORE THAN HALF the effort. [place] lifts or holds trunk or limbs and provides more than half the effort. 3-Mwvxsjvkl-jvyugy does ALL the effort. Patient does none of the effort to comp lete the activity. Or, the assistance of 2 or more helpers is required for the patient to complete the activity. If activity was not attempted, code reason: 7-Patient Refused. 9-Not Applicable-not attempted and the patient did not perform the activity before the current illness, exacerbation or injury. 10-Not Attempted due to Environmental Limitations-(lack of equipment, weather restraints, etc.). 88-Not Attempted due to Medical Conditions or Safety Concerns. Sit to Lying (QC): 6 Lying to Sitting/Side of Bed(Q: 6 Sit to Stand (QC): 5 Weight Bearing Right Lower Extremity: Right Full Weight Bearing Left Lower Extremity: Left Full Weight Bearing Gait Training Does the Patient Walk?: Yes Distance: 400', 230' Walk 10 feet (QC): 5 Walk 50 ft with 2 Turns(QC): 4 Walk 150 ft (QC): 4 Gait Persons Needed: 1 Gait Assistive Device: FWW Followed with w/c 2/2 occasional knee buckling Stair Training Stair Training: Handrails/: 2 handrails #of Steps: 12 1 Step (curb) (QC): 4 4 Steps (QC): 4 12 Steps (QC): 4 Stairs: Pattern: Step to Exercises NuStep Minutes: 15 NuStep Workload: 4 Treatments TF from Supine in bed to EOB to Standing, declining need for BR. Pt amb in hallway with w/c following in case of knee buckling. Pt takes one RB during first walk then uses NuStep in Therapy Gym. After RB, pt completes 12 steps w/therapist instruction & CGA. Pt takes one more RB before amb back to room. P t rests at EOB & Sp arrives. Pt advises needs to use BR. After amb to & using BR, pt rests at end of tx w/all needs met & call light in hand. Assessment Current Status: Good Progress Pt is motivated to push self to walk more and gain more independence of tasks tasneem. walking, stairs & improving activity tolerance. PT Bath Tester Goals Bath Tester Goals PT Bath Tester Goals Time Frame: Jan 25, 2023 Roll Left & Right (QC): 6 (/c bed rail) Sit to Lying (QC): 3 (min (A) 1) Lying-Sitting on Side/Bed(QC): 3 (min (A) 1) Sit to Stand (QC): 3 (mod (A) of 1) Chair/Yyo-ji-Kezvt Xfer(QC): 3 (mod (A) of 1 /c sliding board or stand pivot) Toilet Transfer (QC): 3 (mod (A) of 1) Car Transfer (QC): 3 (Mod (A) ) Does the Patient Walk: No and Walking Goal IS indicated Walk 10 feet (QC): 1 ((A) of 2 /c FWW) Walk 50ft with 2 Turns (QC): 1 ((A) of 2 /c FWW) Walk 150 ft (QC): 9 (max distance prior to surgery was 100' due to (B) knee and back pain) Walking 10ft on Uneven Surface: 1 ((A) of 2 /c FWW) 1 Step (curb) (QC): 1 ((A) of 2 with rails or FWW) 4 Steps (QC): 88 12 Steps (QC): 88 Picking up an Object (QC): 3 (mod (A) with walker and environmental marketing representative) Does the Pt use WC or Scooter?: Yes Wheel 50 feet with 2 turns (QC: 6 Type: Manual Wheel 150 feet: 6 PT Plan Treatment/Plan Treatment Plan: Continue Plan of Care Treatment Plan: Bed Mobility, Education, Functional Activity Rahel, Functional Strength, Gait, Safety, Therapeutic Exercise, Transfers Treatment Duration: Jan 25, 2023 Frequency: At least 5 of 7 days/Wk (IRF) Estimated Hrs Per Day: 1.5 hours per day Patient and/or Family Agrees t: Yes Safety Risks/Education Patient Education: Gait Training, Steps, Correct Positioning, Safety Issues Teaching Recipient: Patient Teaching Methods: Discussion Response to Teaching: Verbalize Understanding Time Time In: 0945 Time Out: 1115 DATE: Jan 16, 2023 Total Billed Treatment Time: 90 Total Billed Treatment 1, GT x2 (30m), EX x2 (30m) & FA x2 (30m) JUAN ALBERTO CASTRO HOME MAKER Jan 16, 2023 12:41
[2023-01-16] MEDS ORDERED: EDOX60TA2 PO (13:03)
[2023-01-16] MEDS: COLD PO PRN ×2 (14:25→21:13)
[2023-01-16] MEDS: FLU PO PRN ×2 (14:25→21:13)
--- NOTE | 2023-01-16 14:34 | Occupational Ther Daily Note ---
OT Current Status-Daily Note Subjective Pt. alert laying in bed with and friends present in room. No c/o pain at this time. Pt. agreed to therapy. Mental Status/Objective Patient Orientation: Person, Place, Time, Situation ADL-Treatment Pt. agreed to shower. IND with bed mobility from supine to EOB. Pt. ambulates from EOB to shower CGA x2 using FWW. IND with w/c mobility. After session, pt in laying in bed with present in room with call light and phone in reach and all need met. Therapy Code Descriptions/Definitions Functional [place] Measure: 0=Not Assessed/NA 4=Minimal Assistance 1=Total Assistance 5=Supervision or Setup 2=Maximal Assistance 6=Modified [place] 3=Moderate Assistance 7=Complete IndependenceSCALE: Activities may be completed with or without assistive devices. 8-Bitjifdhma-aypumal completes the activity by him/herself with no assistance from a helper. 5-Set-up or Clean-up Assistance-helper sets up or cleans up; patient completes activity. [place] assists only prior to or following the activity. 4-Supervision or Touching Assistance-helper provides verbal cues and/or touching/steadying and/or contact guard assistance as patient completes activity. Assistance may be provided throughout the activity or intermittently. 3-Partial/Moderate Assistance-helper does LESS THAN HALF the effort. [place] lifts, holds or supports trunk or limbs, but provides less than half the effort. 2-Substantial/Maximal Assistance-helper does MORE THAN HALF the effort. [place] lifts or holds trunk or limbs and provides more than half the effort. 8-Dtwnaeabz-qndbqz does ALL the effort. Patient does none of the effort to complete the activity. Or, the assistance of 2 or more helpers is required for the patient to complete the activity. If activity was not attempted, code reason: 7-Patient Refused. 9-Not Applicable-not attempted and the patient did not perform the activity before the current illness, exacerbation or injury. 10-Not Attempted due to Environmental Limitations-(lack of equipment, weather restraints, etc.). 88-Not Attempted due to Medical Conditions or Safety Concerns. Oral Hygiene (QC): 6 (Pt. completes grooming/oral hygiene while sitting at sink.) Bathing Location: L Arm, R Arm, L Upper Leg, R Upper Leg, L Lower Leg (including foot), R Lower Leg (including foot), Chest, Abdomen, Buttocks, Perineal Area Shower/Bathe Self (QC): 4 (Pt. able to bathe all areas while sitting 100% of time on BSC using LH sponge, HH shower and grabbars with SBA for safety.) Upper Body Dressing (QC): 5 (Pt. to don/doff UB dressing by self after set.) Lower Body Dressing (QC): 4 (Pt. able to doff pants using dressing stick and is able to don pants and stands using FWW with CGA to hike.) On/Off Footwear: 5 (Pt. able to don/doff using dressing stick and sock aide.) Other Treatment Pt. completed arm bike for 15 mins with 15 watt resistance with no rest breaks going forward and backwards to increase UE strength. Skilled instructions for correct techniques and modifications when needed. Dynamic sitting activity with dowel rodes hitting balloon back and forth 2 sets of 15. OT Usp Goals Usp Goals Time Frame: Jan 27, 2023 Acute change in mental status: 0 Inattention: 0 Disorganized thinkin Altered level of consciousness: 0 Eating (QC): 6 Oral Hygiene (QC): 6 Toileting Hygiene (QC): 4 Shower/Bathe Self (QC): 4 Upper Body Dressing (QC): 5 Lower Body Dressing (QC): 4 On/Off Footwear (QC): 5 Additional Goals: 1-Demonstrate ADL Tasks, 2-Verbalize Understanding, 3- ImproveStrength/Rahel 1=Demonstrate adherence to instructed precautions during ADL tasks. 2=Patient will verbalize/demonstrate understanding of assistive devices/m odifications for ADL. 3=Patient will improve strength/tolerance for activity to enable patient to perform ADL's. OT Education/Plan Problem List/Assessment Assessment: Decreased Safety Aware, Decreased UE Strength, Impaired Funct Balance, Impaired I ADL's, Impaired Self-Care Skills Discharge Recommendations Plan/Recommendations: Continue POC Treatment Plan/Plan of Care Patient would benefit from OT for education, treatment and training to promote independence in ADL's, mobility, safety and/or upper extremity function for ADL's. Plan of Care: ADL Retraining, Functional Mobility, Group Exercise/Act as Ind, UE Funct Exercise/Act, UE Neuromus Re-Ed/Coord Treatment Duration: Jan 27, 2023 Frequency: At least 5 of 7 days/Wk (IRF) Estimated Hrs Per Day: 1.5 hours per day Agreement: Yes Rehab Potential: Fair Time Start Time: 13:00 Stop Time: 14:30 DATE: Jan 16, 2023 Total Time Billed (hr/min): 90 Billed Treatment Time 1 visit- ADL 4 (60 mins) EX 1 (15 mins) FA 1 (15 mins) ANNA KAY Jan 16, 2023 14:34
[2023-01-16 17:43] VITALS: BP 107/54
[2023-01-16 18:48] VITALS: BP 129/57
[2023-01-16 20:53] VITALS: BP 107/56
[2023-01-17] MEDS: carvediloL 6.25 MG TABLET PO SCH ×2 (06:39→18:05)
[2023-01-17] MEDS: FLECAINIDE 100 MG TABLET PO SCH ×2 (06:39→18:05)
[2023-01-17] MEDS: BETHANECHOL 10 MG TABLET PO SCH ×3 (06:39→21:08)
[2023-01-17 07:40] VITALS: BP_SYST 123; BP_SYST 125; BP_DIAS 58
[2023-01-17] MEDS: DOCUSATE SODIUM 100 MG CAPSULE PO SCH ×2 (08:09→21:08)
[2023-01-17] MEDS: SENNA W/DOCUSATE TABLET PO SCH ×2 (08:09→21:09)
[2023-01-17] MEDS: TAMSULOSIN 0.4 MG (FLOMAX) CAP PO SCH ×2 (08:09→21:08)
[2023-01-17] MEDS: SAVAYSA 60 MG PO SCH (08:10)
--- NOTE | 2023-01-17 10:50 | PM&R Progress Note ---
Subjective HPI/CC On Admission Date Seen by Provider: Jan 17, 2023 Time Seen by Provider: 12:30 Subjective/Events-last exam 01/17/2023: Patient dramatically improved Set for discharge on Monday Ambulating around very well Voiding well 01/16/2023: Dramatic improvement Ambulating pretty well Voiding really well male I did confer with urology He wants to go home on Monday which I think is reasonable as well as he is doing 01/15/2023: Improved overall Urination is still an issue and will discuss with Urology No falls No pain 01/14/2023: Patient doing well Urinating well but does require in and out caths at times Urecholine and Flomax maintained 01/13/2023: Patient doing much better Denies pain Will DC catheter per urology recommendations Bowels are moving 01/12/2023: Overall doing well Pardo still in place Reviewed meds No falls 01/11/2023: Patient doing a lot better Working with therapy Will discontinue catheter in the next day or 2 Conferred with urology 01/10/2023: Patient doing a lot better Denies any new problems Reviewed meds and labs Transferring with walker pretty well 01/09/2023: Doing better Dr Maradiaga will see him due to continued urinary retention Pain controlled No falls 01/08/2023: Patient failed spontaneous voiding trial Reinserted the catheter Bowels are moving No falls 01/07/2023: Much improved DC cath today hopefully able to void No pain reported BM + 01/06/2023: Patient doing well Participation is good Pardo catheter still in place Bowels are moving Pain is controlled 01/05/2023: Patient doing a lot better Upright in chair Moving legs and arms 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 Labs reviewed Review of Systems General: Fatigue, Malaise Objective Exam Vital Signs Vital Signs Date Time Temp Pulse Resp B/P (MAP) Pulse Ox O2 Delivery O2 Flow Rate FiO2 01/17/23 17:58 96 132/65 (87) 01/17/23 10:20 Room Air 01/17/23 07:40 36.3 19 95 Capillary Refill : General Appearance: No Apparent Distress, WD/WN, Chronically ill, Obese HEENT: PERRL/EOMI, Normal ENT Inspection, Pharynx Normal Neck: Full Range of Motion, Normal Inspection, Non Tender, Supple, Carotid Bruit Respiratory: Chest Non Tender, Lungs Clear, Normal Breath Sounds, No Accessory Muscle Use, No Respiratory Distress Cardiovascular: Regular Rate, Rhythm, No Edema, No Gallop, No JVD, No Murmur, Normal Peripheral Pulses Gastrointestinal: Normal Bowel Sounds, No Organomegaly, No Pulsatile Mass, Non Tender, Soft Back: Normal Inspection, No CVA Tenderness, No Vertebral Tenderness Extremity: Normal Capillary Refill, Normal Inspection, Normal Range of Motion, Non Tender, No Calf Tenderness, No Pedal Edema Neurologic/Psychiatric: Alert, Oriented x3, No Motor/Sensory Deficits, manager laboratory II- XII Norm as Tested, Abnormal Gait, Depressed Affect, Motor Weakness Skin: Normal Color, Warm/Dry Lymphatic: No Adenopathy Results/Procedures Lab Patient resulted labs reviewed. FIM Transfers Therapy Code Descriptions/Definitions Functional [place] Measure: 0=Not Assessed/NA 4=Minimal Assistance 1=Total Assistance 5=Supervision or Setup 2=Maximal Assistance 6=Modified [place] 3=Moderate Assistance 7=Complete IndependenceSCALE: Activities may be completed with or without assistive devices. 6-Idyioawilf-actknxe completes the activity by him/herself with no assistance from a helper. 5-Set-up or Clean-up Assistance-helper sets up or cleans up; patient completes activity. [place] assists only prior to or following the activity. 4-Supervision or Touching Assistance-helper provides verbal cues and/or touching/steadying and/or contact guard assistance as patient completes activity. Assistance may be provided throughout the activity or intermittently. 3-Partial/Moderate Assistance-helper does LESS THAN HALF the effort. [place] lifts, holds or supports trunk or limbs, but provides less than half the effort. 2-Substantial/Maximal Assistance-helper does MORE THAN HALF the effort. [place] lifts or holds trunk or limbs and provides more than half the effort. 0-Avzwumhar-mngaek does ALL the effort. Patient does none of the effort to complete the activity. Or, the assistance of 2 or more helpers is required for the patient to complete the activity. If activity was not attempted, code reason: 7-Patient Refused. 9-Not Applicable-not attempted and the patient did not perform the activity before the current illness, exacerbation or injury. 10-Not Attempted due to Environmental Limitations-(lack of equipment, weather restraints, etc.). 88-Not Attempted due to Medical Conditions or Safety Concerns. Roll Left to Right (QC): 3 (Min (A) /c cues and bed rail use) Sit to Lying (QC): 6 Sit to Stand (QC): 5 Chair/Nhf-ho-Vlekq Xfer(QC): 4 Car Transfer (QC): 88 Gait Training Does the Patient Walk?: Yes Distance: 400', 230' Walk 10 feet (QC): 5 Walk 50 ft with 2 Turns(QC): 4 Walk 150 ft (QC): 4 Walking 10ft/uneven surface-QC: 88 Gait Persons Needed: 1 Gait Assistive Device: FWW Wheelchair Training Does the Pt Use a Wheelchair?: Yes Distance: 170' Wheel 50 ft with 2 turns (QC): 6 Wheel 150 ft (QC): 6 Type of Wheelchair: Manual Stair Training Stair Training: Handrails/: 2 handrails #of Steps: 12 1 Step (curb) (QC): 4 4 Steps (QC): 4 12 Steps (QC): 4 Stairs: Pattern: Step to Balance Picking up an Object (QC): 88 ADL-Treatment Eating (QC): 6 (IND per pt report) Oral Hygiene (QC): 6 (Pt. completes grooming/oral hygiene while sitting at sink.) Bathing Location: L Arm, R Arm, L Upper Leg, R Upper Leg, L Lower Leg (including foot), R Lower Leg (including foot), Chest, Abdomen, Buttocks, Perineal Area Shower/Bathe Self (QC): 4 (Pt. able to bathe all areas while sitting 100% of time on BSC using LH sponge, HH shower and grabbars with SBA for safety.) Upper Body Dressing (QC): 5 (Pt. to don/doff UB dressing by self after set.) Lower Body Dressing (QC): 4 (Pt. able to doff pants using dressing stick and is able to don pants and stands using FWW with CGA to hike.) On/Off Footwear (QC): 5 (Pt. able to don/doff using dressing stick and sock aide.) Toileting Hygiene (QC): 1 (Per RN, 2 person required) Toilet Transfer (QC): 1 (Per RN, 2 person required) Assessment/Plan Assessment and Plan Assess & Plan/Chief Complaint Assessment: Cervical stenosis with post op myleopathy Urinary retention requiring in-dwelling catheter DC today per urology Post op constipation AF HTN HLP h/o Guillain [place] Plan: Pain control Monitor closely PT OT Catheter management Flomax 01/05/2023: Continue Pardo catheter Supportive care 01/06/2023: Supportive care Pardo cath DC on Monday Continue Flomax twice daily 01/07/2023: DC catheter Maintain Flomax Reinsert cath if can't void 01/08/2023: We will consult urology tomorrow 01/09/2023: Pardo cath Dr Maradiaga Monitor closely 01/10/2023: Appreciate urology Continue aggressive therapy 01/11/2023: Supportive care Continue Pardo catheter Appreciate urology 01/12/2023: Monitor closely Pardo cath management by Dr Maradiaga 01/13/2023: DC catheter 01/14/2023: Supportive care Urology appreciated 01/15/2023: Urology management appreciated 01/16/2023: Urinary retention resolving Discharge planning on Monday01/17/2023: Discharge home on Monday (1) Cervical myelopathy RADHA SEVERINO DO Jan 17, 2023 10:50
--- NOTE | 2023-01-17 10:56 | Occupational Ther Daily Note ---
OT Current Status-Daily Note Subjective Pt alert, sitting in recliner. Pt agrees to therapy. No c/o pain at this time. OT/PT co-treat([id number]), skills of 2 clinicians required for family training, decrease fall risk and increase overall safety with functional mobility. PT focusing on ambulation, stairs, family education and transfers while OT focusing on family education, ADLs, functional mobility and assisting with all mobility. Mental Status/Objective Patient Orientation: Person, Place, Time, Situation ADL-Treatment Therapy Code Descriptions/Definitions Functional [place] Measure: 0=Not Assessed/NA 4=Minimal Assistance 1=Total Assistance 5=Supervision or Setup 2=Maximal Assistance 6=Modified Page 3=Moderate Assistance 7=Complete IndependenceSCALE: Activities may be completed with or without assistive devices. 1-Duqycpdolx-rylzxjz completes the activity by him/herself with no assistance from a helper. 5-Set-up or Clean-up Assistance-helper sets up or cleans up; patient completes activity. [place] assists only prior to or following the activity. 4-Supervision or Touching Assistance-helper provides verbal cues and/or touching/steadying and/or contact guard assistance as patient completes activity. Assistance may be provided throughout the activity or intermittently. 3-Partial/Moderate Assistance-helper does LESS THAN HALF the effort. [place] lifts, holds or supports trunk or limbs, but provides less than half the effort. 2-Substantial/Maximal Assistance-helper does MORE THAN HALF the effort. [place] lifts or holds trunk or limbs and provides more than half the effort. 3-Vgzgqwutu-zsdiuj does ALL the effort. Patient does none of the effort to complete the activity. Or, the assistance of 2 or more helpers is required for the patient to complete the activity. If activity was not attempted, code reason: 7-Patient Refused. 9-Not Applicable-not attempted and the patient did not perform the activity before the current illness, exacerbation or injury. 10-Not Attempted due to Environmental Limitations-(lack of equipment, weather restraints, etc.). 88-Not Attempted due to Medical Conditions or Safety Concerns. Other Treatment Family training and education with AE needs and assist level for all ADLs. demonstrated understanding of all education and was able to ambulate plus complete stairs with pt. Pt. completed arm bike for 15 mins 15 watt resistance no rest breaks. Pt then completed B UE exercises using 5# wts 5 exercises 3 sets of 5 reps with skilled instruction for correct technique, HEP given to pt. Pt. completes functional mobility around ARU with FWW. After session, pt in laying in bed with present in room with call light and phone in reach and all needs met. OT Metal Riveter Goals Metal Riveter Goals Time Frame: Jan 27, 2023 Acute change in mental status: 0 Inattention: 0 Disorganized thinkin Altered level of consciousness: 0 Eating (QC): 6 Oral Hygiene (QC): 6 Toileting Hygiene (QC): 4 Shower/Bathe Self (QC): 4 Upper Body Dressing (QC): 5 Lower Body Dressing (QC): 4 On/Off Footwear (QC): 5 Additional Goals: 1-Demonstrate ADL Tasks, 2-Verbalize Understanding, 3- ImproveStrength/[place] 1=Demonstrate adherence to instructed precautions during ADL tasks. 2=Patient will verbalize/demonstrate understanding of assistive devices/modifications for ADL. 3=Patient will improve strength/tolerance for activity to enable patient to perform ADL's. OT Education/Plan Problem List/Assessment Assessment: Decreased Safety Aware, Decreased UE Strength, Impaired Funct Balance, Impaired I ADL's, Impaired Self-Care Skills Discharge Recommendations Plan/Recommendations: Continue POC Treatment Plan/Plan of Care Patient would benefit from OT for education, treatment and training to promote independence in ADL's, mobility, safety and/or upper extremity function for ADL's. Plan of Care: ADL Retraining, Functional Mobility, Group Exercise/Act as Ind, UE Funct Exercise/Act, UE Neuromus Re-Ed/Coord Treatment Duration: Jan 27, 2023 Frequency: At least 5 of 7 days/Wk (IRF) Estimated Hrs Per Day: 1.5 hours per day Agreement: Yes Rehab Potential: Fair Time Start Time: 08:15 Stop Time: 09:45 DATE: Jan 17, 2023 Total Time Billed (hr/min): 90 Billed Treatment Time 1 visit- FA 4 (60 mins) EX 2 (30 mins) co-treat with PT [id number], individual [id number] ANNA KAY Jan 17, 2023 10:56
--- NOTE | 2023-01-17 11:48 | Physical Therapy Daily Note ---
PT Daily Note-Current Subjective Pt sitting in w/c in room visiting w/Sp upon arrival. Pain Location: No Pain Reported Section J - Health Conditions 1. Rarely or not at all 2. Occasionally 3. Frequently 4. Almost constantly 8. Unable to answer Pain Effect on Sleep: 1 Pain Interference with Therapy: 1 Pain Interference w/Day-to-Day: 1 Mental Status Patient Orientation: Person, Place, Time, Situation Transfers SCALE: Activities may be completed with or without assistive devices. 5-Lpmtbzrdnv-nphmcco completes the activity by him/herself with no assistance from a helper. 5-Set-up or Clean-up Assistance-helper sets up or cleans up; patient completes activity. [place] assists only prior to or following the activity. 4-Supervision or Touching Assistance-helper provides verbal cues and/or touching/steadying and/or contact guard assistance as patient completes activity. Assistance may be provided throughout the activity or intermittently. 3-Partial/Moderate Assistance-helper does LESS THAN HALF the effort. [place] lifts, holds or supports trunk or limbs, but provides less than half the effort. 2-Substantial/Maximal Assistance-helper does MORE THAN HALF the effort. [place] lifts or holds trunk or limbs and provides more than half the effort. 3-Eifzirkar-wlnbcm does ALL the effort. Patient does none of the effort to complete the activity. Or, the assistance of 2 or more helpers is required for the patient to complete the activity. If activity was not attempted, code reason: 7-Patient Refused. 9-Not Applicable-not attempted and the patient did not perform the activity before the current illness, exacerbation or injury. 10-Not Attempted due to Environmental Limitations-(lack of equipment, weather restraints, etc.). 88-Not Attempted due to Medical Conditions or Safety Concerns. Sit to Stand (QC): 5 Weight Bearing Right Lower Extremity: Right Full Weight Bearing Left Lower Extremity: Left Full Weight Bearing Gait Training Does the Patient Walk?: Yes Distance: 500', 300' Walk 10 feet (QC): 5 Walk 50 ft with 2 Turns(QC): 5 Walk 150 ft (QC): 5 Gait Assistive Device: FWW Stair Training Stair Training: Handrails/: 1 handrail #of Steps: 12 1 Step (curb) (QC): 4 4 Steps (QC): 4 12 Steps (QC): 4 Stairs: Pattern: Step to Treatments OT/PT co-treat([id number]), skills of 2 clinicians required for family training, decrease fall risk and increase overall safety with functional mobility. PT focusing on ambulation, stairs, family education and transfers while OT focusing on family education, ADLs, functional mobility and assisting with all mobility. Family training and education with AE needs and assist level for all ADLs. demonstrated understanding of all education and was able to ambulate plus complete stairs with pt. SUPERVISOR STRIPPING departs and OT continues to work w/pt & sp. Assessment Current Status: Good Progress Pt has made great strides towards goals tasneem. toward mobility and transfers independence. Pt still demonstrates occasional knee buckling on L knee but less often. PT Group Home Goals Group Home Goals PT Accounts Payable Manager Goals Time Frame: Jan 25, 2023 Roll Left & Right (QC): 6 (/c bed rail) Sit to Lying (QC): 3 (min (A) 1) Lying-Sitting on Side/Bed(QC): 3 (min (A) 1) Sit to Stand (QC): 3 (mod (A) of 1) Chair/Lgd-zq-Ehnvq Xfer(QC): 3 (mod (A) of 1 /c sliding board or stand pivot) Toilet Transfer (QC): 3 (mod (A) of 1) Car Transfer (QC): 3 (Mod (A) ) Does the Patient Walk: No and Walking Goal IS indicated Walk 10 feet (QC): 1 ((A) of 2 /c FWW) Walk 50ft with 2 Turns (QC): 1 ((A) of 2 /c FWW) Walk 150 ft (QC): 9 (max distance prior to surgery was 100' due to (B) knee and back pain) Walking 10ft on Uneven Surface: 1 ((A) of 2 /c FWW) 1 Step (curb) (QC): 1 ((A) of 2 with rails or FWW) 4 Steps (QC): 88 12 Steps (QC): 88 Picking up an Object (QC): 3 (mod (A) with walker and shuttle van driver) Does the Pt use WC or Scooter?: Yes Wheel 50 feet with 2 turns (QC: 6 Type: Manual Wheel 150 feet: 6 PT Plan Treatment/Plan Treatment Plan: Continue Plan of Care Treatment Plan: Bed Mobility, Education, Functional Activity [place], Functional Strength, Gait, Safety, Therapeutic Exercise, Transfers Treatment Duration: Jan 25, 2023 Frequency: At least 5 of 7 days/Wk (IRF) Estimated Hrs Per Day: 1.5 hours per day Patient and/or Family Agrees t: Yes Safety Risks/Education Patient Education: Gait Training, Steps, Correct Positioning, Safety Issues Teaching Recipient: Patient, Significant Other Teaching Methods: Demonstration, Discussion Response to Teaching: Verbalize Understanding Time Time In: 08 Time Out: 899 DATE: Jan 17, 2023 Total Billed Treatment Time: 60 Total Billed Treatment Co-treat w/OT for 45m ([id number]) 1, GT x2 (30m) & FA x2 (30m) JUAN ALBERTO CASTRO SUPERVISOR STRIPPING Jan 17, 2023 11:48
--- NOTE | 2023-01-17 11:57 | Occupational Ther Daily Note ---
OT Current Status-Daily Note Subjective Pt alert, lying in bed. Pt agrees to therapy. No c/o pain at this time. Mental Status/Objective Patient Orientation: Person, Place, Time, Situation ADL-Treatment Therapy Code Descriptions/Definitions Functional [place] Measure: 0=Not Assessed/NA 4=Minimal Assistance 1=Total Assistance 5=Supervision or Setup 2=Maximal Assistance 6=Modified [place] 3=Moderate Assistance 7=Complete IndependenceSCALE: Activities may be completed with or without assistive devices. 7-Tumlzitjqp-hlgaqtk completes the activity by him/herself with no assistance from a helper. 5-Set-up or Clean-up Assistance-helper sets up or cleans up; patient completes activity. [place] assists only prior to or following the activity. 4-Supervision or Touching Assistance-helper provides verbal cues and/or touching/steadying and/or contact guard assistance as patient completes activity. Assistance may be provided throughout the activity or intermittently. 3-Partial/Moderate Assistance-helper does LESS THAN HALF the effort. [place] lifts, holds or supports trunk or limbs, but provides less than half the effort. 2-Substantial/Maximal Assistance-helper does MORE THAN HALF the effort. [place] lifts or holds trunk or limbs and provides more than half the effort. 0-Avsfhhxkw-ehkpcu does ALL the effort. Patient does none of the effort to complete the activity. Or, the assistance of 2 or more helpers is required for the patient to complete the activity. If activity was not attempted, code reason: 7-Patient Refused. 9-Not Applicable-not attempted and the patient did not perform the activity before the current illness, exacerbation or injury. 10-Not Attempted due to Environmental Limitations-(lack of equipment, weather restraints, etc.). 88-Not Attempted due to Medical Conditions or Safety Concerns. Other Treatment Went over HEP for hand weights and theraband(heavy resistance) to ensure understanding and correct technique. Pt demonstrated understanding of each exercise though continues to need skilled instruction to use correct technique for both hand weights and theraband. After session, pt lying in bed with call light/phone in reach. All needs met in room. OT Penitentiary Goals Penitentiary Goals Time Frame: Jan 27, 2023 Acute change in mental status: 0 Inattention: 0 Disorganized thinkin Altered level of consciousness: 0 Eating (QC): 6 Oral Hygiene (QC): 6 Toileting Hygiene (QC): 4 Shower/Bathe Self (QC): 4 Upper Body Dressing (QC): 5 Lower Body Dressing (QC): 4 On/Off Footwear (QC): 5 Additional Goals: 1-Demonstrate ADL Tasks, 2-Verbalize Understanding, 3- ImproveStrength/[place] 1=Demonstrate adherence to instructed precautions during ADL tasks. 2=Patient will verbalize/demonstrate understanding of assistive devices/modifications for ADL. 3=Patient will improve strength/tolerance for activity to enable patient to perform ADL's. OT Education/Plan Problem List/Assessment Assessment: Decreased Activ Tolerance, Decreased UE Strength Discharge Recommendations Plan/Recommendations: Continue POC Treatment Plan/Plan of Care Patient would benefit from OT for education, treatment and training to promote independence in ADL's, mobility, safety and/or upper extremity function for ADL's. Plan of Care: ADL Retraining, Functional Mobility, Group Exercise/Act as Ind, UE Funct Exercise/Act, UE Neuromus Re-Ed/Coord Treatment Duration: Jan 27, 2023 Frequency: At least 5 of 7 days/Wk (IRF) Estimated Hrs Per Day: 1.5 hours per day Agreement: Yes Rehab Potential: Fair Time Start Time: 11:00 Stop Time: 11:30 DATE: Jan 17, 2023 Total Time Billed (hr/min): 30 Billed Treatment Time 1 visit-EX 2 (30 min) ANNA KAY Jan 17, 2023 11:56
[2023-01-17 17:58] VITALS: BP 132/65
[2023-01-17] MEDS: FLU PO PRN (19:01)
[2023-01-17] MEDS: COLD PO PRN (19:01)
[2023-01-17 20:25] VITALS: BP 107/58
--- NOTE | 2023-01-18 06:31 | PM&R Progress Note ---
Subjective HPI/CC On Admission Date Seen by Provider: Jan 18, 2023 Time Seen by Provider: 12:30 Subjective/Events-last exam 01/18/2023: Patient doing well Ambulating around Exceeding expectations Discharge home Monday01/17/2023: Patient dramatically improved Set for discharge on Monday Ambulating around very well Voiding well 01/16/2023: Dramatic improvement Ambulating pretty well Voiding really well male I did confer with urology He wants to go home on Monday which I think is reasonable as well as he is doing 01/15/2023: Improved overall Urination is still an issue and will discuss with Urology No falls No pain 01/14/2023: Patient doing well Urinating well but does require in and out caths at times Urecholine and Flomax maintained 01/13/2023: Patient doing much better Denies pain Will DC catheter per urology recommendations Bowels are moving 01/12/2023: Overall doing well Pardo still in place Reviewed meds No falls 01/11/2023: Patient doing a lot better Working with therapy Will discontinue catheter in the next day or 2 Conferred with urology 01/10/2023: Patient doing a lot better Denies any new problems Reviewed meds and labs Transferring with walker pretty well 01/09/2023: Doing better Dr Maradiaga will see him due to continued urinary retention Pain controlled No falls 01/08/2023: Patient failed spontaneous voiding trial Reinserted the catheter Bowels are moving No falls 01/07/2023: Much improved DC cath today hopefully able to void No pain reported BM + 01/06/2023: Patient doing well Participation is good Pardo catheter still in place Bowels are moving Pain is controlled 01/05/2023: Patient doing a lot better Upright in chair Moving legs and arms 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 Labs reviewed Review of Systems General: Fatigue, Malaise Objective Exam Vital Signs Vital Signs Date Time Temp Pulse Resp B/P (MAP) Pulse Ox O2 Delivery O2 Flow Rate FiO2 01/18/23 20:09 36.4 96 18 107/59 (75) 94 Room Air Capillary Refill : General Appearance: No Apparent Distress, WD/WN, Chronically ill, Obese HEENT: PERRL/EOMI, Normal ENT Inspection, Pharynx Normal Neck: Full Range of Motion, Normal Inspection, Non Tender, Supple, Carotid Bruit Respiratory: Chest Non Tender, Lungs Clear, Normal Breath Sounds, No Accessory Muscle Use, No Respiratory Distress Cardiovascular: Regular Rate, Rhythm, No Edema, No Gallop, No JVD, No Murmur, Normal Peripheral Pulses Gastrointestinal: Normal Bowel Sounds, No Organomegaly, No Pulsatile Mass, Non Tender, Soft Back: Normal Inspection, No CVA Tenderness, No Vertebral Tenderness Extremity: Normal Capillary Refill, Normal Inspection, Normal Range of Motion, Non Tender, No Calf Tenderness, No Pedal Edema Neurologic/Psychiatric: Alert, Oriented x3, No Motor/Sensory Deficits, cleaner furniture II- XII Norm as Tested, Abnormal Gait, Depressed Affect, Motor Weakness Skin: Normal Color, Warm/Dry Lymphatic: No Adenopathy Results/Procedures Lab Patient resulted labs reviewed. FIM Transfers Therapy Code Descriptions/Definitions Functional [place] Measure: 0=Not Assessed/NA 4=Minimal Assistance 1=Total Assistance 5=Supervision or Setup 2=Maximal Assistance 6=Modified [place] 3=Moderate Assistance 7=Complete IndependenceSCALE: Activities may be completed with or without assistive devices. 4-Ghshrbmlco-dwysyah completes the activity by him/herself with no assistance from a helper. 5-Set-up or Clean-up Assistance-helper sets up or cleans up; patient completes activity. [place] assists only prior to or following the activity. 4-Supervision or Touching Assistance-helper provides verbal cues and/or touching/steadying and/or contact guard assistance as patient completes activity. Assistance may be provided throughout the activity or intermittently. 3-Partial/Moderate Assistance-helper does LESS THAN HALF the effort. [place] lifts, holds or supports trunk or limbs, but provides less than half the effort. 2-Substantial/Maximal Assistance-helper does MORE THAN HALF the effort. [place] lifts or holds trunk or limbs and provides more than half the effort. 5-Fxqrkmsqx-rcbxjp does ALL the effort. Patient does none of the effort to complete the activity. Or, the assistance of 2 or more helpers is required for the patient to complete the activity. If activity was not attempted, code reason: 7-Patient Refused. 9-Not Applicable-not attempted and the patient did not perform the activity before the current illness, exacerbation or injury. 10-Not Attempted due to Environmental Limitations-(lack of equipment, weather restraints, etc.). 88-Not Attempted due to Medical Conditions or Safety Concerns. Roll Left to Right (QC): 3 (Min (A) /c cues and bed rail use) Sit to Lying (QC): 6 Sit to Stand (QC): 5 Chair/Eou-fz-Pvoio Xfer(QC): 4 Car Transfer (QC): 88 Gait Training Does the Patient Walk?: Yes Distance: 500', 300' Walk 10 feet (QC): 5 Walk 50 ft with 2 Turns(QC): 5 Walk 150 ft (QC): 5 Walking 10ft/uneven surface-QC: 88 Gait Persons Needed: 1 Gait Assistive Device: FWW Wheelchair Training Does the Pt Use a Wheelchair?: Yes Distance: 170' Wheel 50 ft with 2 turns (QC): 6 Wheel 150 ft (QC): 6 Type of Wheelchair: Manual Stair Training Stair Training: Handrails/: 1 handrail #of Steps: 12 1 Step (curb) (QC): 4 4 Steps (QC): 4 12 Steps (QC): 4 Stairs: Pattern: Step to Balance Picking up an Object (QC): 88 ADL-Treatment Eating (QC): 6 (IND per pt report) Oral Hygiene (QC): 6 (Pt. completes grooming/oral hygiene while sitting at sink.) Bathing Location: L Arm, R Arm, L Upper Leg, R Upper Leg, L Lower Leg (including foot), R Lower Leg (including foot), Chest, Abdomen, Buttocks, Perineal Area Shower/Bathe Self (QC): 4 (Pt. able to bathe all areas while sitting 100% of time on BSC using LH sponge, HH shower and grabbars with SBA for safety.) Upper Body Dressing (QC): 5 (Pt. to don/doff UB dressing by self after set.) Lower Body Dressing (QC): 4 (Pt. able to doff pants using dressing stick and is able to don pants and stands using FWW with CGA to hike.) On/Off Footwear (QC): 5 (Pt. able to don/doff using dressing stick and sock aide.) Toileting Hygiene (QC): 1 (Per RN, 2 person required) Toilet Transfer (QC): 1 (Per RN, 2 person required) Assessment/Plan Assessment and Plan Assess & Plan/Chief Complaint Assessment: Cervical stenosis with post op myleopathy Urinary retention requiring in-dwelling catheter DC today per urology Post op constipation AF HTN HLP h/o Guillain [place] Plan: Pain control Monitor closely PT OT Catheter management Flomax 01/05/2023: Continue Pardo catheter Supportive care 01/06/2023: Supportive care Pardo cath DC on Monday Continue Flomax twice daily 01/07/2023: DC catheter Maintain Flomax Reinsert cath if can't void 01/08/2023: We will consult urology tomorrow 01/09/2023: Pardo cath Dr Maradiaga Monitor closely 01/10/2023: Appreciate urology Continue aggressive therapy 01/11/2023: Supportive care Continue Pardo catheter Appreciate urology 01/12/2023: Monitor closely Pardo cath management by Dr Maradiaga 01/13/2023: DC catheter 01/14/2023: Supportive care Urology appreciated 01/15/2023: Urology management appreciated 01/16/2023: Urinary retention resolving Discharge planning on Monday01/17/2023: Discharge home on Monday01/18/2023: Supportive care Discharge from Monday (1) Cervical myelopathy RADHA SEVERINO DO Jan 18, 2023 06:31
[2023-01-18] MEDS: FLECAINIDE 100 MG TABLET PO SCH ×2 (06:47→17:59)
[2023-01-18] MEDS: carvediloL 6.25 MG TABLET PO SCH ×2 (06:47→17:59)
[2023-01-18] MEDS: BETHANECHOL 10 MG TABLET PO SCH ×3 (06:47→21:35)
[2023-01-18 06:52] VITALS: BP 108/55
[2023-01-18] MEDS: TAMSULOSIN 0.4 MG (FLOMAX) CAP PO SCH ×2 (08:08→21:35)
[2023-01-18] MEDS: DOCUSATE SODIUM 100 MG CAPSULE PO SCH ×2 (08:09→21:41)
[2023-01-18] MEDS: SAVAYSA 60 MG PO SCH (08:09)
[2023-01-18] MEDS: SENNA W/DOCUSATE TABLET PO SCH ×2 (08:10→21:41)
--- NOTE | 2023-01-18 09:33 | Occupational Ther Daily Note ---
OT Current Status-Daily Note Subjective Pt with PT, agreeable to cotreatment with focus on higher level balance tasks. Mental Status/Objective Patient Orientation: Normal For Age ADL-Treatment Therapy Code Descriptions/Definitions Functional [place] Measure: 0=Not Assessed/NA 4=Minimal Assistance 1=Total Assistance 5=Supervision or Setup 2=Maximal Assistance 6=Modified [place] 3=Moderate Assistance 7=Complete IndependenceSCALE: Activities may be completed with or without assistive devices. 4-Eiqohcusvi-ivdqdje completes the activity by him/herself with no assistance from a helper. 5-Set-up or Clean-up Assistance-helper sets up or cleans up; patient completes activity. [place] assists only prior to or following the activity. 4-Supervision or Touching Assistance-helper provides verbal cues and/or touching/steadying and/or contact guard assistance as patient completes activity. Assistance may be provided throughout the activity or intermittently. 3-Partial/Moderate Assistance-helper does LESS THAN HALF the effort. [place] lifts, holds or supports trunk or limbs, but provides less than half the effort. 2-Substantial/Maximal Assistance-helper does MORE THAN HALF the effort. [place] lifts or holds trunk or limbs and provides more than half the effort. 8-Orltohxhl-xeuqij does ALL the effort. Patient does none of the effort to complete the activity. Or, the assistance of 2 or more helpers is required for the patient to complete the activity. If activity was not attempted, code reason: 7-Patient Refused. 9-Not Applicable-not attempted and the patient did not perform the activity before the current illness, exacerbation or injury. 10-Not Attempted due to Environmental Limitations-(lack of equipment, weather restraints, etc.). 88-Not Attempted due to Medical Conditions or Safety Concerns. Other Treatment OT/PT cotreat due to skill of 2 clinicians required which a rehab rn could not perform in order to coordinate UE/lEs, decrease fall risk, focus on higher level balance tasks, and due to pt's limitations in strength, activity tolerance. OT focused on UE placement and cues for sequencing and safety. PT focused on LE placement, gross overall movement, balance, and mobility. Pt performed functional mobility using FWW to [facility] common area, IND. Pt used FWW to retrieve plastic rings from kitchen area, locating 12 rings with minimal cues, then carry 1 ring at a time across steps, then toss ring at target. Pt took 2 rest breaks during activity. Pt returned to his room using FWW, IND, then transferred EOB and supine independently. Post tx, pt in bed, call light in reach and all needs met. Education OT Patient Education: Correct positioning, Energy conservation, Modified ADL techniques, Progress toward Goal/Update tx plan, Purpose of tx/functional activities, Rehab process Teaching Recipient: Patient Teaching Methods: Discussion Response to Teaching: Verbalize Understanding OT Education Program Associate Goals Detention Goals Time Frame: Jan 27, 2023 Acute change in mental status: 0 Inattention: 0 Disorganized thinkin Altered level of consciousness: 0 Eating (QC): 6 Oral Hygiene (QC): 6 Toileting Hygiene (QC): 4 Shower/Bathe Self (QC): 4 Upper Body Dressing (QC): 5 Lower Body Dressing (QC): 4 On/Off Footwear (QC): 5 Additional Goals: 1-Demonstrate ADL Tasks, 2-Verbalize Understanding, 3-ImproveStrength/Ra[place] 1=Demonstrate adherence to instructed precautions during ADL tasks. 2=Patient will verbalize/demonstrate understanding of assistive devices/modifications for ADL. 3=Patient will improve strength/tolerance for activity to enable patient to perform ADL's. OT Education/Plan Problem List/Assessment Assessment: Decreased Activ Tolerance, Decreased UE Strength, Impaired I ADL's Discharge Recommendations Plan/Recommendations: Continue POC Treatment Plan/Plan of Care Patient would benefit from OT for education, treatment and training to promote independence in ADL's, mobility, safety and/or upper extremity function for ADL's. Plan of Care: ADL Retraining, Functional Mobility, Group Exercise/Act as Ind, UE Funct Exercise/Act, UE Neuromus Re-Ed/Coord Treatment Duration: Jan 27, 2023 Frequency: At least 5 of 7 days/Wk (IRF) Estimated Hrs Per Day: 1.5 hours per day Agreement: Yes Rehab Potential: Fair Time Start Time: 08:30 Stop Time: 09:30 DATE: Jan 18, 2023 Total Time Billed (hr/min): 60 Billed Treatment Time cotreat x60' 1, FA 4 ANALIA SOSA OT Jan 18, 2023 09:33
--- NOTE | 2023-01-18 12:10 | Physical Therapy Daily Note ---
PT Daily Note-Current Subjective Pt sitting at EOB upon arrival. Pt takes morning meds and agrees to PT. Pain Section J - Health Conditions 1. Rarely or not at all 2. Occasionally 3. Frequently 4. Almost constantly 8. Unable to answer Pain Effect on Sleep: 1 Pain Interference with Therapy: 1 Pain Interference w/Day-to-Day: 1 Mental Status Patient Orientation: Person, Place, Time, Situation Transfers SCALE: Activities may be completed with or without assistive devices. 6-Jvfpptlrwn-soylklz completes the activity by him/herself with no assistance from a helper. 5-Set-up or Clean-up Assistance-helper sets up or cleans up; patient completes activity. [place] assists only prior to or following the activity. 4-Supervision or Touching Assistance-helper provides verbal cues and/or touching/steadying and/or contact guard assistance as patient completes activity. Assistance may be provided throughout the activity or intermittently. 3-Partial/Moderate Assistance-helper does LESS THAN HALF the effort. [place] lifts, holds or supports trunk or limbs, but provides less than half the effort. 2-Substantial/Maximal Assistance-helper does MORE THAN HALF the effort. [place] lifts or holds trunk or limbs and provides more than half the effort. 0-Sothdvznz-uavpow does ALL the effort. Patient does none of the effort to complete the activity. Or, the assistance of 2 or more helpers is required for the patient to complete the activity. If activity was not attempted, code reason: 7-Patient Refused. 9-Not Applicable-not attempted and the patient did not perform the activity before the current illness, exacerbation or injury. 10-Not Attempted due to Environmental Limitations-(lack of equipment, weather restraints, etc.). 88-Not Attempted due to Medical Conditions or Safety Concerns. Sit to Stand (QC): 6 Toilet Transfer (QC): 6 Weight Bearing Right Lower Extremity: Right Full Weight Bearing Left Lower Extremity: Left Full Weight Bearing Gait Training Does the Patient Walk?: Yes Distance: 500' Walk 10 feet (QC): 6 Walk 50 ft with 2 Turns(QC): 6 Walk 150 ft (QC): 6 Gait Assistive Device: FWW Stair Training #of Steps: 12 1 Step (curb) (QC): 6 4 Steps (QC): 5 12 Steps (QC): 5 Stairs: Pattern: Step to Treatments Pt sits at EOB and Nurse gives morning meds. Pt stands from EOB to toilet. Pt advised would like to work on activity tolerance, stairs & walking. OT arrives to co-treat at this time. OT/PT cotreat due to skill of 2 clinicians required which a clinical rehabilitation liaison could not perform in order to coordinate UE/lEs, decrease fall risk, focus on higher level balance tasks, and due to pt's limitations in strength, activity tolerance. OT focused on UE placement and cues for sequencing and safety. PT focused on LE placement, gross overall movement, balance, and mobility. Pt performed functional mobility using FWW to [facility] common area, IND. Pt used FWW to retrieve plastic rings from kitchen area, locating 12 rings with minimal cues, then carry 1 ring at a time across steps, then toss ring at target. Pt took 2 rest breaks during activity. Pt returned to his room using FWW, IND, then transferred EOB and supine independently. Post tx, pt in bed, call light in reach and all needs met. Assessment Current Status: Excellent Progress Pt sanya. tx well. PT Senior Asset Manager Goals Jail Goals PT Jail Goals Time Frame: Jan 25, 2023 Roll Left & Right (QC): 6 (/c bed rail) Sit to Lying (QC): 3 (min (A) 1) Lying-Sitting on Side/Bed(QC): 3 (min (A) 1) Sit to Stand (QC): 3 (mod (A) of 1) Chair/Xwx-lr-Lklug Xfer(QC): 3 (mod (A) of 1 /c sliding board or stand pivot) Toilet Transfer (QC): 3 (mod (A) of 1) Car Transfer (QC): 3 (Mod (A) ) Does the Patient Walk: No and Walking Goal IS indicated Walk 10 feet (QC): 1 ((A) of 2 /c FWW) Walk 50ft with 2 Turns (QC): 1 ((A) of 2 /c FWW) Walk 150 ft (QC): 9 (max distance prior to surgery was 100' due to (B) knee and back pain) Walking 10ft on Uneven Surface: 1 ((A) of 2 /c FWW) 1 Step (curb) (QC): 1 ((A) of 2 with rails or FWW) 4 Steps (QC): 88 12 Steps (QC): 88 Picking up an Object (QC): 3 (mod (A) with walker and outside machinist helper) Does the Pt use WC or Scooter?: Yes Wheel 50 feet with 2 turns (QC: 6 Type: Manual Wheel 150 feet: 6 PT Plan Treatment/Plan Treatment Plan: Continue Plan of Care Treatment Plan: Bed Mobility, Education, Functional Activity Rahel, Functional Strength, Gait, Safety, Therapeutic Exercise, Transfers Treatment Duration: Jan 25, 2023 Frequency: At least 5 of 7 days/Wk (IRF) Estimated Hrs Per Day: 1.5 hours per day Patient and/or Family Agrees t: Yes Time Time In: 0800 Time Out: 929 DATE: Jan 18, 2023 Total Billed Treatment Time: 90 Total Billed Treatment Co-treat w/OT for 60m ([id number]) 1, GT x2 (30m) & FA x4 (60m) JUAN ALBERTO CASTRO DIRECTOR OF INTERCOLLEGIATE ATHLETICS Jan 18, 2023 12:10
--- NOTE | 2023-01-18 13:30 | Occupational Ther Daily Note ---
OT Current Status-Daily Note Subjective Pt agreeable to OT Tx. ADL-Treatment Therapy Code Descriptions/Definitions Functional [place] Measure: 0=Not Assessed/NA 4=Minimal Assistance 1=Total Assistance 5=Supervision or Setup 2=Maximal Assistance 6=Modified [place] 3=Moderate Assistance 7=Complete IndependenceSCALE: Activities may be completed with or without assistive devices. 2-Vnmbeveohb-hnquxzf completes the activity by him/herself with no assistance from a helper. 5-Set-up or Clean-up Assistance-helper sets up or cleans up; patient completes activity. [place] assists only prior to or following the activity. 4-Supervision or Touching Assistance-helper provides verbal cues and/or touching/steadying and/or contact guard assistance as patient completes activity. Assistance may be provided throughout the activity or intermittently. 3-Partial/Moderate Assistance-helper does LESS THAN HALF the effort. [place] lifts, holds or supports trunk or limbs, but provides less than half the effort. 2-Substantial/Maximal Assistance-helper does MORE THAN HALF the effort. [place] lifts or holds trunk or limbs and provides more than half the effort. 8-Txefrtiqf-neuuum does ALL the effort. Patient does none of the effort to complete the activity. Or, the assistance of 2 or more helpers is required for the patient to complete the activity. If activity was not attempted, code reason: 7-Patient Refused. 9-Not Applicable-not attempted and the patient did not perform the activity before the current illness, exacerbation or injury. 10-Not Attempted due to Environmental Limitations-(lack of equipment, weather restraints, etc.). 88-Not Attempted due to Medical Conditions or Safety Concerns. Other Treatment Pt transferred supine to sit EOB, IND. IND using FWW to transfer into therapy gym. In order to increase BUE Strength and activity tolerance, pt completed arm bike x15 mins, 15-20 Watt resistance, no rest breaks. Pt returned to his room using FWW, IND, completed toileting, IND with urination only. Pt returned to EOB and supine, IND. Post tx, pt in bed, call light in reach and all needs met. OT Fdc Goals Traffic Rate Clerk Goals Time Frame: Jan 27, 2023 Acute change in mental status: 0 Inattention: 0 Disorganized thinkin Altered level of consciousness: 0 Eating (QC): 6 Oral Hygiene (QC): 6 Toileting Hygiene (QC): 4 Shower/Bathe Self (QC): 4 Upper Body Dressing (QC): 5 Lower Body Dressing (QC): 4 On/Off Footwear (QC): 5 Additional Goals: 1-Demonstrate ADL Tasks, 2-Verbalize Understanding, 3- ImproveStrength/[place] 1=Demonstrate adherence to instructed precautions during ADL tasks. 2=Patient will verbalize/demonstrate understanding of assistive devices/modifications for ADL. 3=Patient will improve strength/tolerance for activity to enable patient to perform ADL's. OT Education/Plan Problem List/Assessment Assessment: Decreased Activ Tolerance, Decreased UE Strength, Impaired I ADL's Discharge Recommendations Plan/Recommendations: Continue POC Treatment Plan/Plan of Care Patient would benefit from OT for education, treatment and training to promote independence in ADL's, mobility, safety and/or upper extremity function for ADL's. Plan of Care: ADL Retraining, Functional Mobility, Group Exercise/Act as Ind, UE Funct Exercise/Act, UE Neuromus Re-Ed/Coord Treatment Duration: Jan 27, 2023 Frequency: At least 5 of 7 days/Wk (IRF) Estimated Hrs Per Day: 1.5 hours per day Agreement: Yes Rehab Potential: Fair Time Start Time: 12:55 Stop Time: 13:25 DATE: Jan 18, 2023 Total Time Billed (hr/min): 30 Billed Treatment Time 1, EX (15'), ADL (15') ANALIA SOSA OT Jan 18, 2023 13:30
[2023-01-18 18:00] VITALS: BP 128/60
[2023-01-18 20:09] VITALS: BP 107/59
[2023-01-18] MEDS: FLU PO PRN (21:36)
[2023-01-18] MEDS: COLD PO PRN (21:36)
[2023-01-19] MEDS: carvediloL 6.25 MG TABLET PO SCH ×2 (06:44→18:18)
[2023-01-19] MEDS: FLECAINIDE 100 MG TABLET PO SCH ×2 (06:44→18:19)
[2023-01-19] MEDS: BETHANECHOL 10 MG TABLET PO SCH ×3 (06:44→21:02)
[2023-01-19 06:51] VITALS: BP 106/51
--- NOTE | 2023-01-19 07:04 | PM&R Progress Note ---
Subjective HPI/CC On Admission Date Seen by Provider: Jan 19, 2023 Time Seen by Provider: 12:30 Subjective/Events-last exam 01/19/2023: Patient dramatically improved No falls Ambulating well Discharge plan for tomorrow 01/18/2023: Patient doing well Ambulating around Exceeding expectations Discharge home Monday01/17/2023: Patient dramatically improved Set for discharge on Monday Ambulating around very well Voiding well 01/16/2023: Dramatic improvement Ambulating pretty well Voiding really well male I did confer with urology He wants to go home on Monday which I think is reasonable as well as he is doing 01/15/2023: Improved overall Urination is still an issue and will discuss with Urology No falls No pain 01/14/2023: Patient doing well Urinating well but does require in and out caths at times Urecholine and Flomax maintained 01/13/2023: Patient doing much better Denies pain Will DC catheter per urology recommendations Bowels are moving 01/12/2023: Overall doing well Pardo still in place Reviewed meds No falls 01/11/2023: Patient doing a lot better Working with therapy Will discontinue catheter in the next day or 2 Conferred with urology 01/10/2023: Patient doing a lot better Denies any new problems Reviewed meds and labs Transferring with walker pretty well 01/09/2023: Doing better Dr Maradiaga will see him due to continued urinary retention Pain controlled No falls 01/08/2023: Patient failed spontaneous voiding trial Reinserted the catheter Bowels are moving No falls 01/07/2023: Much improved DC cath today hopefully able to void No pain reported BM + 01/06/2023: Patient doing well Participation is good Pardo catheter still in place Bowels are moving Pain is controlled 01/05/2023: Patient doing a lot better Upright in chair Moving legs and arms 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 Labs reviewed Review of Systems General: Fatigue, Malaise Objective Exam Vital Signs Vital Signs Date Time Temp Pulse Resp B/P (MAP) Pulse Ox O2 Delivery O2 Flow Rate FiO2 01/19/23 20:39 Room Air 01/19/23 19:55 36.5 92 20 126/60 (82) 95 Capillary Refill : General Appearance: No Apparent Distress, WD/WN, Chronically ill, Obese HEENT: PERRL/EOMI, Normal ENT Inspection, Pharynx Normal Neck: Full Range of Motion, Normal Inspection, Non Tender, Supple, Carotid Bruit Respiratory: Chest Non Tender, Lungs Clear, Normal Breath Sounds, No Accessory Muscle Use, No Respiratory Distress Cardiovascular: Regular Rate, Rhythm, No Edema, No Gallop, No JVD, No Murmur, Normal Peripheral Pulses Gastrointestinal: Normal Bowel Sounds, No Organomegaly, No Pulsatile Mass, Non Tender, Soft Back: Normal Inspection, No CVA Tenderness, No Vertebral Tenderness Extremity: Normal Capillary Refill, Normal Inspection, Normal Range of Motion, Non Tender, No Calf Tenderness, No Pedal Edema Neurologic/Psychiatric: Alert, Oriented x3, No Motor/Sensory Deficits, barrel cooper II- XII Norm as Tested, Abnormal Gait, Depressed Affect, Motor Weakness Skin: Normal Color, Warm/Dry Lymphatic: No Adenopathy Results/Procedures Lab Patient resulted labs reviewed. FIM Transfers Therapy Code Descriptions/Definitions Functional [place] Measure: 0=Not Assessed/NA 4=Minimal Assistance 1=Total Assistance 5=Supervision or Setup 2=Maximal Assistance 6=Modified [place] 3=Moderate Assistance 7=Complete IndependenceSCALE: Activities may be completed with or without assistive devices. 8-Znrsxinxiw-yiomazy completes the activity by him/herself with no assistance from a helper. 5-Set-up or Clean-up Assistance-helper sets up or cleans up; patient completes activity. [place] assists only prior to or following the activity. 4-Supervision or Touching Assistance-helper provides verbal cues and/or touching/steadying and/or contact guard assistance as patient completes activity. Assistance may be provided throughout the activity or intermittently. 3-Partial/Moderate Assistance-helper does LESS THAN HALF the effort. [place] lifts, holds or supports trunk or limbs, but provides less than half the effort. 2-Substantial/Maximal Assistance-helper does MORE THAN HALF the effort. [place] lifts or holds trunk or limbs and provides more than half the effort. 0-Jkabzutme-ibgxye does ALL the effort. Patient does none of the effort to complete the activity. Or, the assistance of 2 or more helpers is required for the patient to complete the activity. If activity was not attempted, code reason: 7-Patient Refused. 9-Not Applicable-not attempted and the patient did not perform the activity before the current illness, exacerbation or injury. 10-Not Attempted due to Environmental Limitations-(lack of equipment, weather restraints, etc.). 88-Not Attempted due to Medical Conditions or Safety Concerns. Roll Left to Right (QC): 3 (Min (A) /c cues and bed rail use) Sit to Lying (QC): 6 Sit to Stand (QC): 6 Chair/Gon-oi-Xemgj Xfer(QC): 4 Car Transfer (QC): 88 Gait Training Does the Patient Walk?: Yes Distance: 500' Walk 10 feet (QC): 6 Walk 50 ft with 2 Turns(QC): 6 Walk 150 ft (QC): 6 Walking 10ft/uneven surface-QC: 88 Gait Persons Needed: 1 Gait Assistive Device: FWW Wheelchair Training Does the Pt Use a Wheelchair?: Yes Distance: 170' Wheel 50 ft with 2 turns (QC): 6 Wheel 150 ft (QC): 6 Type of Wheelchair: Manual Stair Training Stair Training: Handrails/: 1 handrail #of Steps: 12 1 Step (curb) (QC): 6 4 Steps (QC): 5 12 Steps (QC): 5 Stairs: Pattern: Step to Balance Picking up an Object (QC): 88 ADL-Treatment Eating (QC): 6 (IND per pt report) Oral Hygiene (QC): 6 (Pt. completes grooming/oral hygiene while sitting at sink.) Bathing Location: L Arm, R Arm, L Upper Leg, R Upper Leg, L Lower Leg (including foot), R Lower Leg (including foot), Chest, Abdomen, Buttocks, Perineal Area Shower/Bathe Self (QC): 4 (Pt. able to bathe all areas while sitting 100% of time on BSC using LH sponge, HH shower and grabbars with SBA for safety.) Upper Body Dressing (QC): 5 (Pt. to don/doff UB dressing by self after set.) Lower Body Dressing (QC): 4 (Pt. able to doff pants using dressing stick and is able to don pants and stands using FWW with CGA to hike.) On/Off Footwear (QC): 5 (Pt. able to don/doff using dressing stick and sock aide.) Toileting Hygiene (QC): 1 (Per RN, 2 person required) Toilet Transfer (QC): 1 (Per RN, 2 person required) Assessment/Plan Assessment and Plan Assess & Plan/Chief Complaint Assessment: Cervical stenosis with post op myleopathy Urinary retention requiring in-dwelling catheter DC today per urology Post op constipation AF HTN HLP h/o Guillain [place] Plan: Pain control Monitor closely PT OT Catheter management Flomax 01/05/2023: Continue Pardo catheter Supportive care 01/06/2023: Supportive care Pardo cath DC on Monday Continue Flomax twice daily 01/07/2023: DC catheter Maintain Flomax Reinsert cath if can't void 01/08/2023: We will consult urology tomorrow 01/09/2023: Pardo cath Dr Maradiaga Monitor closely 01/10/2023: Appreciate urology Continue aggressive therapy 01/11/2023: Supportive care Continue Pardo catheter Appreciate urology 01/12/2023: Monitor closely Pardo cath management by Dr Maradiaga 01/13/2023: DC catheter 01/14/2023: Supportive care Urology appreciated 01/15/2023: Urology management appreciated 01/16/2023: Urinary retention resolving Discharge planning on Monday01/17/2023: Discharge home on Monday01/18/2023: Supportive care Discharge from Monday01/19/2023: Discharge home tomorrow (1) Cervical myelopathy RADHA SEVERINO DO Jan 19, 2023 07:04
[2023-01-19 07:55] VITALS: BP 106/51
[2023-01-19] MEDS: DOCUSATE SODIUM 100 MG CAPSULE PO SCH ×2 (08:37→20:26)
[2023-01-19] MEDS: SENNA W/DOCUSATE TABLET PO SCH ×2 (08:38→20:27)
[2023-01-19] MEDS: TAMSULOSIN 0.4 MG (FLOMAX) CAP PO SCH ×2 (08:38→21:02)
[2023-01-19] MEDS: SAVAYSA 60 MG PO SCH (08:39)
--- NOTE | 2023-01-19 11:59 | Physical Therapy Daily Note ---
PT Daily Note-Current Subjective Pt laying Supine in bed upon arrival. Pt agrees to PT for QC Scoring for anticipated d/c tomorrow. Pain Location: No Pain Reported Section J - Health Conditions 1. Rarely or not at all 2. Occasionally 3. Frequently 4. Almost constantly 8. Unable to answer Pain Effect on Sleep: 1 Pain Interference with Therapy: 1 Pain Interference w/Day-to-Day: 1 Mental Status Patient Orientation: Person, Place, Time, Situation Transfers SCALE: Activities may be completed with or without assistive devices. 8-Nnfoxdrmfq-pwhzwrz completes the activity by him/herself with no assistance from a helper. 5-Set-up or Clean-up Assistance-helper sets up or cleans up; patient completes activity. [place] assists only prior to or following the activity. 4-Supervision or Touching Assistance-helper provides verbal cues and/or touching/steadying and/or contact guard assistance as patient completes activity. Assistance may be provided throughout the activity or intermittently. 3-Partial/Moderate Assistance-helper does LESS THAN HALF the effort. [place] lifts, holds or supports trunk or limbs, but provides less than half the effort. 2-Substantial/Maximal Assistance-helper does MORE THAN HALF the effort. [place] lifts or holds trunk or limbs and provides more than half the effort. 1-Rjzixbyzs-snrlgr does ALL the effort. Patient does none of the effort to complete the activity. Or, the assistance of 2 or more helpers is required for the patient to complete the activity. If activity was not attempted, code reason: 7-Patient Refused. 9-Not Applicable-not attempted and the patient did not perform the activity before the current illness, exacerbation or injury. 10-Not Attempted due to Environmental Limitations-(lack of equipment, weather restraints, etc.). 88-Not Attempted due to Medical Conditions or Safety Concerns. Roll Left & Right (QC): 6 Sit to Lying (QC): 6 Lying to Sitting/Side of Bed(Q: 6 Sit to Stand (QC): 6 Chair/Neb-vw-Nqebn Xfer(QC): 6 Toilet Transfer (QC): 6 Car Transfer (QC): 6 Weight Bearing Right Lower Extremity: Right Full Weight Bearing Left Lower Extremity: Left Full Weight Bearing Gait Training Does the Patient Walk?: Yes Distance: 500' Walk 10 feet (QC): 6 Walk 50 ft with 2 Turns(QC): 6 Walk 150 ft (QC): 6 Walking 10ft/uneven surface-QC: 6 Gait Assistive Device: FWW Wheelchair Training Does the Pt Use a Wheelchair?: No Pt uses w/c for community distances as knees occasionally buckle for safe safety. Stair Training Stair Training: Handrails/: 1 handrail #of Steps: 12 1 Step (curb) (QC): 6 4 Steps (QC): 6 Stairs: Pattern: Step to Balance Picking up an Object (QC): 5 Exercises NuStep Minutes: 15 NuStep Workload: 4 Treatments Pt completes QC scoring items listed above as well as used NuStep. Pt returns to room to use BR and rest at end of tx w/all needs met, call light in hand. Assessment Current Status: Excellent Progress Pt has gained strength, activity tolerance, mobility & transfer independence. PT Fci Goals Fci Goals PT Fire Alarm Mechanic Goals Time Frame: Jan 25, 2023 Roll Left & Right (QC): 6 (/c bed rail) Sit to Lying (QC): 3 (min (A) 1) Lying-Sitting on Side/Bed(QC): 3 (min (A) 1) Sit to Stand (QC): 3 (mod (A) of 1) Chair/Zus-yy-Dpfuc Xfer(QC): 3 (mod (A) of 1 /c sliding board or stand pivot) Toilet Transfer (QC): 3 (mod (A) of 1) Car Transfer (QC): 3 (Mod (A) ) Does the Patient Walk: No and Walking Goal IS indicated Walk 10 feet (QC): 1 ((A) of 2 /c FWW) Walk 50ft with 2 Turns (QC): 1 ((A) of 2 /c FWW) Walk 150 ft (QC): 9 (max distance prior to surgery was 100' due to (B) knee and back pain) Walking 10ft on Uneven Surface: 1 ((A) of 2 /c FWW) 1 Step (curb) (QC): 1 ((A) of 2 with rails or FWW) 4 Steps (QC): 88 12 Steps (QC): 88 Picking up an Object (QC): 3 (mod (A) with walker and chyron operator) Does the Pt use WC or Scooter?: Yes Wheel 50 feet with 2 turns (QC: 6 Type: Manual Wheel 150 feet: 6 PT Plan Treatment/Plan Treatment Plan: Continue Plan of Care Treatment Plan: Bed Mobility, Education, Functional Activity Rahel, Functional Strength, Gait, Safety, Therapeutic Exercise, Transfers Treatment Duration: Jan 25, 2023 Frequency: At least 5 of 7 days/Wk (IRF) Estimated Hrs Per Day: 1.5 hours per day Patient and/or Family Agrees t: Yes Time Time In: 0800 Time Out: 0930 DATE: Jan 19, 2023 Total Billed Treatment Time: 90 Total Billed Treatment 1, GT x2 (30m), EX (15m) & FA x3 (45m) J[employer]AN [employer] COOK Jan 19, 2023 11:59
--- NOTE | 2023-01-19 14:31 | Occupational Ther Daily Note ---
OT Current Status-Daily Note Subjective Pt laying in bed asleep woke to name. No c/o pain at this time. Pt. agreed to therapy. Mental Status/Objective Patient Orientation: Person, Place, Time, Situation ADL-Treatment Pt. agreed to shower. IND with bed mobility from supine to EOB HOB slighty jiménez sed utilizing bed rails. SPT from EOB to w/c using FWW. Pt. gathered UB/LB dressing by self using w/c. IND with w/c mobility. After session, pt sitting EOB with call light and phone in reach and all needs met. Therapy Code Descriptions/Definitions Functional [place] Measure: 0=Not Assessed/NA 4=Minimal Assistance 1=Total Assistance 5=Supervision or Setup 2=Maximal Assistance 6=Modified [place] 3=Moderate Assistance 7=Complete IndependenceSCALE: Activities may be completed with or without assistive devices. 7-Zddvpqftmd-gwhzyfm completes the activity by him/herself with no assistance from a helper. 5-Set-up or Clean-up Assistance-helper sets up or cleans up; patient completes activity. [place] assists only prior to or following the activity. 4-Supervision or Touching Assistance-helper provides verbal cues and/or touching/steadying and/or contact guard assistance as patient completes activity. Assistance may be provided throughout the activity or intermittently. 3-Partial/Moderate Assistance-helper does LESS THAN HALF the effort. [place] lifts, holds or supports trunk or limbs, but provides less than half the effort. 2-Substantial/Maximal Assistance-helper does MORE THAN HALF the effort. [place] lifts or holds trunk or limbs and provides more than half the effort. 1-Gbygejuar-skpfia does ALL the effort. Patient does none of the effort to complete the activity. Or, the assistance of 2 or more helpers is required for the patient to complete the activity. If activity was not attempted, code reason: 7-Patient Refused. 9-Not Applicable-not attempted and the patient did not perform the activity before the current illness, exacerbation or injury. 10-Not Attempted due to Environmental Limitations-(lack of equipment, weather restraints, etc.). 88-Not Attempted due to Medical Conditions or Safety Concerns. Eating (QC): 6 (Pt. had demonstrated eating IND.) Oral Hygiene (QC): 6 (Pt. completes grooming/oral hygiene while sitting at sink.) Bathing Location: L Arm, R Arm, L Upper Leg, R Upper Leg, L Lower Leg (including foot), R Lower Leg (including foot), Chest, Abdomen, Buttocks, Perineal Area Shower/Bathe Self (QC): 6 (Pt. bathes all areas while sitting on shower bench 100% of time leaning side to side to clean buttocks using LH sponge, HH shower and grabbars.) Upper Body Dressing (QC): 6 (Pt. IND with UB dressing.) Lower Body Dressing (QC): 6 (Pt. IND with LB dressing grabbar and FWW to stabilize.) On/Off Footwear: 6 (Pt. IND with donning socks using sock aide and stood with FWW then used opposite foot to stand on sock and pull up foot to doff. ) Toileting Hygiene (QC): 6 (Pt. completes clothing manipulation using grabbars and cleanses buttocks while standing using grabbars to stabilize.) Toilet Transfer (QC): 6 (Pt. completes toilet transfers using grabbars. ) Other Treatment Pt. completes arm bike for 15 minutes with 15 watt resistance with no rest breaks going forward to increase daily functional task. Skilled instructions for correct techniques and modifications when needed. Pt. completed placing pegs into peg board while standing stabilizing L hand on table with no rest breaks to increase standing balance and hand strength and pincer grasp to work on opening containers/packages. BIMS CAM BIMS Expression of Ideas and Wants: Without Difficulty Understanding Verbal Content: Understands Brief Interview/Mental Status: Yes IRF JAVI BIMS: IRF JAVI BIMS Response (Comments) Value Repitition of Three Words Three 3 Recalls Socks Yes, No Cue Required 2 Recalls Blue Yes, No Cue Required 2 Recalls Bed Yes, No Cue Required 2 Year Correct 3 Month Accurate Within 5 Days 2 Day Correct 1 Total 15 Patient Normally Able to Recal: Current Session, Location of own room, Staff Names and faces, That he/she in a [facility] Should Staff Asses. Mental St.: No Memory/Recall Ability: Current Season, Location of Own Room, Staff Names and Faces, That He/She in Hospit[facility] Mental Status Change/Baseline: 0 Inattention: 0 Disorganized thinkin Altered level of consciousness: 0 OT Short Term Goals Short Term Goals Time Frame: Jan 19, 2023 OT Plastic Fixture Builder Goals Snf Goals Time Frame: Jan 27, 2023 Acute change in mental status: 0 Inattention: 0 Disorganized thinkin Altered level of consciousness: 0 Eating (QC): 6 (met) Oral Hygiene (QC): 6 (met) Toileting Hygiene (QC): 4 (met) Shower/Bathe Self (QC): 4 (met) Upper Body Dressing (QC): 5 (met) Lower Body Dressing (QC): 4 (met) On/Off Footwear (QC): 5 (met) Additional Goals: 1-Demonstrate ADL Tasks, 2-Verbalize Understanding, 3- ImproveStrength/Rahel 1=Demonstrate adherence to instructed precautions during ADL tasks. 2=Patient will verbalize/demonstrate understanding of assistive devices/modifications for ADL. 3=Patient will improve strength/tolerance for activity to enable patient to perform ADL's. OT Education/Plan Problem List/Assessment Assessment: Decreased Safety Aware, Decreased UE Strength, Impaired Funct Balance, Impaired I ADL's, Impaired Self-Care Skills Discharge Recommendations Plan/Recommendations: Continue POC Treatment Plan/Plan of Care Patient would benefit from OT for education, treatment and training to promote independence in ADL's, mobility, safety and/or upper extremity function for ADL's. Plan of Care: ADL Retraining, Functional Mobility, Group Exercise/Act as Ind, UE Funct Exercise/Act, UE Neuromus Re-Ed/Coord Treatment Duration: Jan 27, 2023 Frequency: At least 5 of 7 days/Wk (IRF) Estimated Hrs Per Day: 1.5 hours per day Agreement: Yes Rehab Potential: Fair Time Start Time: 13:00 Stop Time: 14:30 DATE: Jan 19, 2023 Total Time Billed (hr/min): 90 Billed Treatment Time 1 visit- ADL 3 (40 mins) EX 2 (35 mins) FA 1 (15 mins) ANNA KAY Jan 19, 2023 14:31
[2023-01-19 18:16] VITALS: BP 134/62
[2023-01-19 19:55] VITALS: BP 126/60
[2023-01-19] MEDS: COLD PO PRN (21:03)
[2023-01-19] MEDS: FLU PO PRN (21:03)
[2023-01-20] MEDS ORDERED: TMSL.4C PO (04:38)
[2023-01-20] MEDS ORDERED: BTH10T PO (04:38)
[2023-01-20] MEDS ORDERED: ACHD5005 PO (04:38)
[2023-01-20] MEDS ORDERED: CYCL10TA25 PO (04:38)
--- NOTE | 2023-01-20 04:39 | D/C HH Face to Face Order ---
D/C HH Face to Face Orders Reconcile Patient Problems Problems Reviewed?: Yes Instructions for Patient HH Patient Instructions/FollowUp: pcp Physician to follow Patient: pcp Discharge Diet for Home: No Restrictions Patient Problems: c spine stenosis Patient Data-Allergies,Ht & Wt Patient Allergies: Coded Allergies: No Known Allergies (Verified Allergy, Unknown, 01/06/23) Home Health Need/Face to Face Date of Face to Face: Jan 20, 2023 Clinical Findings: Generalized weakness and fatigue, Instability, Muscle weakness, Unsteady gait I have seen Pt rdwm-qh-uyzd: Yes Discharged To: Home Diagnosis/Conditions: c spine Patient is Homebound due to: [place] fall risk due to instabilty, Muscle weakness Homebound Status Due to the above stated illness, injury or surgical procedure (medical condition or diagnosis) and associated clinical findings, the patient is homebound because of his/her inability to leave home except with aid of a supportive device and/or person AND leaving the home requires a considerable and taxing effort or is medically contraindicated. Pt req the following assistanc: Walker Home Health Nursing Orders Home Health Services Order: Nursing Services, Repairer [employer]-Evaluate & Treat, Physical Therapy-Evaluate & Treat Certify Stmt I certify that this patient is under my care and that I, a nurse practitioner or a physician; a clerical administrative assistant working with me, had a face to face encounter that - meets the physician face to face encounter requirements with this patient as dated. RADHA SEVERINO DO Jan 20, 2023 04:39
--- NOTE | 2023-01-20 04:40 | Discharge Summary ---
Diagnosis/Chief Complaint Date of Admission Jan 04, 2023 at 13:15 Date of Discharge Discharge Date: Jan 20, 2023 Discharge Diagnosis ssess & Plan/Chief Complaint Assessment: Cervical stenosis with post op myleopathy Urinary retention requiring in-dwelling catheter DC today per urology Post op constipation AF HTN HLP h/o Guillain [place] Plan: Pain control Monitor closely PT OT Catheter management Flomax 01/05/2023: Continue Pardo catheter Supportive care 01/06/2023: Supportive care Pardo cath DC on Monday Continue Flomax twice daily 01/07/2023: DC catheter Maintain Flomax Reinsert cath if can't void 01/08/2023: We will consult urology tomorrow 01/09/2023: Pardo cath Dr Maradiaga Monitor closely 01/10/2023: Appreciate urology Continue aggressive therapy 01/11/2023: Supportive care Continue Pardo catheter Appreciate urology 01/12/2023: Monitor closely Pardo cath management by Dr Maradiaga 01/13/2023: DC catheter 01/14/2023: Supportive care Urology appreciated 01/15/2023: Urology management appreciated 01/16/2023: Urinary retention resolving Discharge planning on Monday01/17/2023: Discharge home on Monday01/18/2023: Supportive care Discharge from Monday01/19/2023: Discharge home tomorrow (1) Cervical myelopathy Discharge Summary Discharge Physical Examination Allergies: Coded Allergies: No Known Allergies (Verified Allergy, Unknown, 01/06/23) Vitals & I&Os Vital Signs Date Time Temp Pulse Resp B/P (MAP) Pulse Ox O2 Delivery O2 Flow Rate FiO2 01/20/23 09:17 36.4 77 19 103/51 95 Room Air General Appearance: Alert, Oriented X3, Cooperative Respiratory: Clear to Auscultation Cardiovascular: Regular Rate Psych/Mental Status: Mental Status NL Hospital Course Was the Problem List Reviewed?: Yes Patient had an uneventful course with dramatic improvement in severe weakness in legs since cervical spine stenosis surgery. Bladder function required Urology to evaluate and ultimately was able to void spontaneously with meds. Dramatic return of function of his legs and was able to ambulate and perform ADL's and was able to DC in improved condition Labs (last 24 hrs) Laboratory Tests 01/05/23 05:50: White Blood Count 11.3H, Red Blood Count 3.94L, Hemoglobin 12.9L, Hematocrit 38L , Mean Corpuscular Volume 95, Mean Corpuscular Hemoglobin 33, Mean Corpuscular Hemoglobin Concent 34, Red Cell Distribution Width 13.0, Platelet Count 283, Mean Platelet Volume 9.0, Immature Granulocyte % (Auto) 1, Neutrophils (%) (Auto) 56, Lymphocytes (%) (Auto) 36, Monocytes (%) (Auto) 7, Eosinophils (%) (Auto) 0, Basophils (%) (Auto) 0, Neutrophils # (Auto) 6.2, Lymphocytes # (Auto) 4.0, Monocytes # (Auto) 0.8, Eosinophils # (Auto) 0.1, Basophils # (Auto) 0.0, Immature Granulocyte # (Auto) 0.1, Sodium Level 136, Potassium Level 3.8, Chloride Level 102, Carbon Dioxide Level 26, Anion Gap 8, Blood Urea Nitrogen 22H, Creatinine 0.84, Estimat Glomerular Filtration Rate 93, BUN/Creatinine Ratio 26, Glucose Level 103, Calcium Level 8.7, Corrected Calcium 9.0, Total Bilirubin 0.4, Aspartate Amino Transf (AST/SGOT) 34, Alanine Aminotransferase (ALT/SGPT) 37, Alkaline Phosphatase 49, Total Protein 6.6, Albumin 3.6 01/16/23 05:34: White Blood Count 10.9, Red Blood Count 4.00L, Hemoglobin 12.8L, Hematocrit 37L, Mean Corpuscular Volume 92, Mean Corpuscular Hemoglobin 32, Mean Corpuscular Hemoglobin Concent 35, Red Cell Distribution Width 12.3, Platelet Count 343, Mean Platelet Volume 9.0, Immature Granulocyte % (Auto) 1, Neutrophils (%) (Auto) 68, Lymphocytes (%) (Auto) 20, Monocytes (%) (Auto) 9, Eosinophils (%) (Auto) 1, Basophils (%) (Auto) 1, Neutrophils # (Auto) 7.4, Lymphocytes # (Auto) 2.2, Monocytes # (Auto) 0.9, Eosinophils # (Auto) 0.2, Basophils # (Auto) 0.1, Immature Granulocyte # (Auto) 0.1, Sodium Level 129L, Potassium Level 4.3, Chloride Level 95L, Carbon Dioxide Level 22, Anion Gap 12, Blood Urea Nitrogen 15, Creatinine 0.88, Estimat Glomerular Filtration Rate 92, BUN/Creatinine Ratio 17, Glucose Level 101, Calcium Level 8.8, Corrected Calcium 9.1, Total Bilirubin 0.5, Aspartate Amino Transf (AST/SGOT) 23, Alanine Aminotransferase (ALT/SGPT) 40, Alkaline Phosphatase 58, Total Protein 6.5, Albumin 3.6 Pending Labs Laboratory Tests 01/05/23 05:50: White Blood Count 11.3, Red Blood Count 3.94, Hemoglobin 12.9, Hematocrit 38, Mean Corpuscular Volume 95, Mean Corpuscular Hemoglobin 33, Mean Corpuscular Hemoglobin Concent 34, Red Cell Distribution Width 13.0, Platelet Count 283, Mean Platelet Volume 9.0, Immature Granulocyte % (Auto) 1, Neutrophils (%) (Auto) 56, Lymphocytes (%) (Auto) 36, Monocytes (%) (Auto) 7, Eosinophils (%) (Auto) 0, Basophils (%) (Auto) 0, Neutrophils # (Auto) 6.2, Lymphocytes # (Auto) 4.0, Monocytes # (Auto) 0.8, Eosinophils # (Auto) 0.1, Basophils # (Auto) 0.0, Immature Granulocyte # (Auto) 0.1, Sodium Level 136, Potassium Level 3.8, Chloride Level 102, Carbon Dioxide Level 26, Anion Gap 8, Blood Urea Nitrogen 22, Creatinine 0.84, Estimat Glomerular Filtration Rate 93, BUN/Creatinine Ratio 26, Glucose Level 103, Calcium Level 8.7, Corrected Calcium 9.0, Total Bilirubin 0.4, Aspartate Amino Transf (AST/SGOT) 34, Alanine Aminotransferase (ALT/SGPT) 37, Alkaline Phosphatase 49, Total Protein 6.6, Albumin 3.6 01/16/23 05:34: White Blood Count 10.9, Red Blood Count 4.00, Hemoglobin 12.8, Hematocrit 37, Mean Corpuscular Volume 92, Mean Corpuscular Hemoglobin 32, Mean Corpuscular H emoglobin Concent 35, Red Cell Distribution Width 12.3, Platelet Count 343, Mean Platelet Volume 9.0, Immature Granulocyte % (Auto) 1, Neutrophils (%) (Auto) 68, Lymphocytes (%) (Auto) 20, Monocytes (%) (Auto) 9, Eosinophils (%) (Auto) 1, Basophils (%) (Auto) 1, Neutrophils # (Auto) 7.4, Lymphocytes # (Auto) 2.2, Monocytes # (Auto) 0.9, Eosinophils # (Auto) 0.2, Basophils # (Auto) 0.1, Immature Granulocyte # (Auto) 0.1, Sodium Level 129, Potassium Level 4.3, Chloride Level 95, Carbon Dioxide Level 22, Anion Gap 12, Blood Urea Nitrogen 15, Creatinine 0.88, Estimat Glomerular Filtration Rate 92, BUN/Creatinine Ratio 17, Glucose Level 101, Calcium Level 8.8, Corrected Calcium 9.1, Total Bilirubin 0.5, Aspartate Amino Transf (AST/SGOT) 23, Alanine Aminotransferase (ALT/SGPT) 40, Alkaline Phosphatase 58, Total Protein 6.5, Albumin 3.6 Discharge Home Medications: Active Scripts Active Hydrocodone-Acetamin 5-325 mg (Hydrocodone/Acetaminophen) 5 Mg-325 Mg Tablet 1 Ea PO Q4H PRN Cyclobenzaprine HCl 10 Mg Tablet 10 Mg PO Q8H PRN Flomax (Tamsulosin HCl) 0.4 Mg Cap 0.4 Mg PO BID Urecholine (Bethanechol Chloride) 10 Mg Tablet 10 Mg PO TID Reported Savaysa (Edoxaban Tosylate) 60 Mg Tablet 60 Mg PO DAILY Lisinopril-Hctz 20-25 mg Tab (Lisinopril/Hydrochlorothiazide) 20 Mg-25 Mg Tablet 1 Each PO HS Flecainide Acetate 50 Mg Tablet 50 Mg PO Q12H Carvedilol 6.25 Mg Tablet 6.25 Mg PO BID WITH MEALS Tylenol Extra Strength (Acetaminophen) 500 Mg Tablet 1,000 Mg PO Q6H PRN TAKES 2 (500MG) TABS Instructions to patient/family Please see electronic discharge instructions given to patient. Diagnosis/Problems Diagnosis/Problems (1) Cervical myelopathy Clinical Quality Measures DVT/VTE Risk/Contraindication: Contraindications-Pharm: Other *list below* Other: spinal surgery RADHA SEVERINO DO Jan 20, 2023 04:40
[2023-01-20] MEDS: carvediloL 6.25 MG TABLET PO SCH (06:11)
[2023-01-20] MEDS: BETHANECHOL 10 MG TABLET PO SCH (06:11)
[2023-01-20] MEDS: FLECAINIDE 100 MG TABLET PO SCH (06:11)
[2023-01-20 08:13] VITALS: BP 99/57
[2023-01-20] MEDS: TAMSULOSIN 0.4 MG (FLOMAX) CAP PO SCH (08:15)
[2023-01-20] MEDS: SAVAYSA 60 MG PO SCH (08:15)
[2023-01-20] MEDS: SENNA W/DOCUSATE TABLET PO SCH (08:16)
[2023-01-20] MEDS: DOCUSATE SODIUM 100 MG CAPSULE PO SCH (08:16)
[2023-01-20 08:52] VITALS: BP 103/51
[2023-01-20 09:17] VITALS: BP 103/51
--- NOTE | 2023-01-23 15:35 | Therapy Team Discharge Summary ---
Therapy Discharge Summary Discharge Recommendations Date of Discharge Jan 20, 2023 at 09:20 Physical Therapy Roll Left to Right (QC): 6 Sit to Lying (QC): 6 Lying to Sitting/Side of Bed(Q: 6 Sit to Stand (QC): 6 Chair/Djh-km-Gymrz Xfer(QC): 6 Toilet Transfer (QC): 5 Car Transfer (QC): 6 Does the Patient Walk: Yes Mode of Locomotion: Both Anticipated Mode of Locomotion: Wheelchair Walk 10 feet (QC): 6 Walk 50 ft with 2 Turns(QC): 6 Walk 150 ft (QC): 6 Walking 10ft on uneven surface: 6 Gait Assistive Device: FWW Does the Pt Use a Wheelchair: No Wheelchair Distance: 170' Wheel 50 ft with 2 turns (QC): 6 Wheel 150 ft (QC): 6 Type of Wheelchair: Manual #of Steps: 12 1 Step (curb) (QC): 6 4 Steps (QC): 6 12 Steps (QC): 5 Picking up an Object (QC): 5 Occupational Therapy Pt admitted to ARU with spondylosis with myelopathy; cervical region. At [facility], pt was independent with ADLS and functional mobility. Upon initial evaluation, pt was independent with eating, required set up with UBD, SBA oral care, and total assist with footwear, showering, LBD, and toileting. OT tx focused on increasing BUE strength and activity tolerance, and increasing safety and indep endence with ADLS and functional mobility. Pt made good progress towards goals, attaining all LTGs at IND level. Pt discharged home, d/c from OT. Decreased Safety Aware, Decreased UE Strength, Impaired Funct Balance, Impaired I ADL's, Impaired Self-Care Skills Eating (QC): 6 (Pt. had demonstrated eating IND.) Oral Hygiene (QC): 6 (Pt. completes grooming/oral hygiene while sitting at sink.) Shower/Bathe Self (QC): 6 (Pt. bathes all areas while sitting on shower bench 100% of time leaning side to side to clean buttocks using LH sponge, HH shower and grabbars.) Upper Body Dressing (QC): 6 (Pt. IND with UB dressing.) Lower Body Dressing (QC): 6 (Pt. IND with LB dressing grabbar and FWW to stabilize.) On/Off Footwear (QC): 6 (Pt. IND with donning socks using sock aide and stood with FWW then used opposite foot to stand on sock and pull up foot to doff. ) Toileting Hygiene (QC): 6 (Pt. completes clothing manipulation using grabbars and cleanses buttocks while standing using grabbars to stabilize.) PT Math Interventionist Goals Skilled Nursing Goals PT Skilled Nursing Goals Time Frame: Jan 25, 2023 Roll Left to Right (QC): 6 (/c bed rail) Sit to Lying (QC): 3 (min (A) 1) Lying-Sitting on Side/Bed(QC): 3 (min (A) 1) Sit to Stand (QC): 3 (mod (A) of 1) Chair/Esc-wz-Ssyjf Xfer(QC): 3 (mod (A) of 1 /c sliding board or stand pivot) Toilet/Commode Transfer (QC): 3 (mod (A) of 1) Car Transfer (QC): 3 (Mod (A) ) Does the Patient Walk: No and Walking Goal IS indicated Walk 10 feet (QC): 1 ((A) of 2 /c FWW) Walk 10ft-Uneven Surface(QC): 1 ((A) of 2 /c FWW) Walk 50ft with 2 Turns (QC): 1 ((A) of 2 /c FWW) Walk 150 ft (QC): 9 (max distance prior to surgery was 100' due to (B) knee and back pain) Does the Pt use WC or Scooter?: Yes Wheel 50 feet with 2 turns (QC: 6 Type: Manual Wheel 150 feet: 6 1 Step (curb) (QC): 1 ((A) of 2 with rails or FWW) 4 Steps (QC): 88 12 Steps (QC): 88 Picking up an Object (QC): 3 (mod (A) with walker and personnel recruiter) OT Math Interventionist Goals Skilled Nursing Goals Time Frame: Jan 27, 2023 Acute change in mental status: 0 Inattention: 0 Disorganized thinkin Altered level of consciousness: 0 Eating (QC): 6 (met) Oral Hygiene (QC): 6 (met) Toileting Hygiene (QC): 4 (met) Shower/Bathe Self (QC): 4 (met) Upper Body Dressing (QC): 5 (met) Lower Body Dressing (QC): 4 (met) On/Off Footwear (QC): 5 (met) Additional Goals: 1-Demonstrate ADL Tasks, 2-Verbalize Understanding, 3- ImproveStrength/Rahel 1=Demonstrate adherence to instructed precautions during ADL tasks. 2=Patient will verbalize/demonstrate understanding of assistive devices/modifications for ADL. 3=Patient will improve strength/tolerance for activity to enable patient to perform ADL's. ANALIA SOSA OT Jan 23, 2023 15:35
--- NOTE | 2023-01-23 15:54 | Therapy Team Discharge Summary ---
Therapy Discharge Summary Discharge Recommendations Date of Discharge Jan 20, 2023 at 09:20 Physical Therapy Patient admitted to ARU 01/04/23 with dx of spondylosis with myelopahty, cervical fusion that occurred 01/02/23. At the time of D/C on 01/20/23, the patient was ambulating 500' /c FWW (I), (I) with bed mobility and transfers and was able to go up/down 4 stairs (I) using the railing. was setup (A) for 12 steps. He was set up assist to pick an object up off of the floor in standing. The patient made excellent progress, as he required use of a mechanical lift for sit>stand and transfers at his evaluation on 01/04/23. Roll Left to Right (QC): 6 Sit to Lying (QC): 6 Lying to Sitting/Side of Bed(Q: 6 Sit to Stand (QC): 6 Chair/Qrp-ce-Hcyqe Xfer(QC): 6 Toilet Transfer (QC): 6 Car Transfer (QC): 6 Does the Patient Walk: Yes Mode of Locomotion: Both Anticipated Mode of Locomotion: Wheelchair Walk 10 feet (QC): 6 Walk 50 ft with 2 Turns(QC): 6 Walk 150 ft (QC): 6 Walking 10ft on uneven surface: 6 Gait Assistive Device: FWW Does the Pt Use a Wheelchair: No Wheelchair Distance: 500' Wheel 50 ft with 2 turns (QC): 6 Wheel 150 ft (QC): 6 Type of Wheelchair: Manual #of Steps: 12 1 Step (curb) (QC): 6 4 Steps (QC): 6 12 Steps (QC): 5 Picking up an Object (QC): 5 Occupational Therapy Decreased Safety Aware, Decreased UE Strength, Impaired Funct Balance, Impaired I ADL's, Impaired Self-Care Skills Eating (QC): 6 (Pt. had demonstrated eating IND.) Oral Hygiene (QC): 6 (Pt. completes grooming/oral hygiene while sitting at sink.) Shower/Bathe Self (QC): 6 (Pt. bathes all areas while sitting on shower bench 100% of time leaning side to side to clean buttocks using LH sponge, HH shower and grabbars.) Upper Body Dressing (QC): 6 (Pt. IND with UB dressing.) Lower Body Dressing (QC): 6 (Pt. IND with LB dressing grabbar and FWW to stabilize.) On/Off Footwear (QC): 6 (Pt. IND with donning socks using sock aide and stood with FWW then used opposite foot to stand on sock and pull up foot to doff. ) Toileting Hygiene (QC): 6 (Pt. completes clothing manipulation using grabbars and cleanses buttocks while standing using grabbars to stabilize.) PT Halfway Goals Halfway Goals PT Production Line Technician Goals Time Frame: Jan 25, 2023 Roll Left to Right (QC): 6 (/c bed rail) Sit to Lying (QC): 3 (min (A) 1) Lying-Sitting on Side/Bed(QC): 3 (min (A) 1) Sit to Stand (QC): 3 (mod (A) of 1) Chair/Gpn-in-Skepp Xfer(QC): 3 (mod (A) of 1 /c sliding board or stand pivot) Toilet/Commode Transfer (QC): 3 (mod (A) of 1) Car Transfer (QC): 3 (Mod (A) ) Does the Patient Walk: No and Walking Goal IS indicated Walk 10 feet (QC): 1 ((A) of 2 /c FWW) Walk 10ft-Uneven Surface(QC): 1 ((A) of 2 /c FWW) Walk 50ft with 2 Turns (QC): 1 ((A) of 2 /c FWW) Walk 150 ft (QC): 9 (max distance prior to surgery was 100' due to (B) knee and back pain) Does the Pt use WC or Scooter?: Yes Wheel 50 feet with 2 turns (QC: 6 Type: Manual Wheel 150 feet: 6 1 Step (curb) (QC): 1 ((A) of 2 with rails or FWW) 4 Steps (QC): 88 12 Steps (QC): 88 Picking up an Object (QC): 3 (mod (A) with walker and graining machine operator) OT Halfway Goals Halfway Goals Time Frame: Jan 27, 2023 Acute change in mental status: 0 Inattention: 0 Disorganized thinkin Altered level of consciousness: 0 Eating (QC): 6 (met) Oral Hygiene (QC): 6 (met) Toileting Hygiene (QC): 4 (met) Shower/Bathe Self (QC): 4 (met) Upper Body Dressing (QC): 5 (met) Lower Body Dressing (QC): 4 (met) On/Off Footwear (QC): 5 (met) Additional Goals: 1-Demonstrate ADL Tasks, 2-Verbalize Understanding, 3-Imp roveStrength/Rahel 1=Demonstrate adherence to instructed precautions during ADL tasks. 2=Patient will verbalize/demonstrate understanding of assistive devices/modifications for ADL. 3=Patient will improve strength/tolerance for activity to enable patient to perform ADL's. Mariella Ruelas PT Jan 23, 2023 15:54
== END 2023-01-20 09:20 | disposition home health service (06) | DRG 552 ==
PROVIDERS: ADMIT Internal Medicine; ATTEND Internal Medicine
DX: M47.12 Other spondylosis with myelopathy, cervical region (principal); Z98.1 Arthrodesis status; R33.8 Other retention of urine; K59.09 Other constipation; G47.30 Sleep apnea, unspecified; I48.91 Unspecified atrial fibrillation; E78.00 Pure hypercholesterolemia, unspecified; I10 Essential (primary) hypertension; E66.9 Obesity, unspecified; M19.90 Unspecified osteoarthritis, unspecified site; M54.9 Dorsalgia, unspecified; G89.29 Other chronic pain; Z68.38 Body mass index [BMI] 38.0-38.9, adult; Z87.891 Personal history of nicotine dependence; Z79.899 Other long term (current) drug therapy
CPT/HCPCS: 36415; 80053; 85025